=== PATIENT | male | born 1980 | race Caucasian/White ===

== ENCOUNTER 2021-01-29 14:34 | Emergency (ER) | payer SELFPAY ==
[~2021-01-29] VITALS: Ht 172.7 cm; Wt 63.5 kg
--- NOTE | 2021-01-29 14:36 | ED Cough/URI ---
General Stated Complaint: COVID+; CHEST PAIN History of Present Illness Date Seen by Provider: Jan 29, 2021 Time Seen by Provider: 14:36 Initial Comments 40-year-old male presents with chest pain that started about 30 minutes prior to arrival. Patient reports that about 11 days ago he tested positive for Covid. That he is doing well but then today has developed some nausea, vomiting, diarrhea and some upper epigastric pain. That he threw up a couple times and complains of substernal mid chest pain. Patient reports he had a cardiac event which he thinks was a heart attack back in 2018 with sounds like it may have been pericarditis. Patient denies any cough, shortness of breath, radiation of the pain, fever or chills. Allergies and Home Medications Allergies Uncoded Allergies: pcn (Allergy, Unknown, 01/29/21) Patient Home Medication List Home Medication List Reviewed: Yes Review of Systems Review of Systems Constitutional: No chills, No fever; malaise Respiratory: No cough, No short of breath Cardiovascular: chest pain Gastrointestinal: abdominal pain, diarrhea, nausea, vomiting Genitourinary: no symptoms reported Musculoskeletal: no symptoms reported Skin: no symptoms reported Psychiatric/Neurological: No Symptoms Reported Hematologic/Lymphatic: No Symptoms Reported Physical Exam Vital Signs - First Documented 01/29/21 14:38 Temp 36.7 Pulse 58 Resp 19 B/P (MAP) 157/78 (104) Pulse Ox 100 O2 Delivery Room Air Capillary Refill : Height: '" Weight: lbs. oz. kg; BMI Method: General Appearance: mild distress Respiratory: no respiratory distress, no accessory muscle use Cardiovascular: normal peripheral pulses, regular rate, rhythm, no edema Gastrointestinal: soft; No guarding, No rebound; tenderness (Epigastric) Neurologic/Psychiatric: alert, normal mood/affect, oriented x 3 Skin: normal color, warm/dry Progress/Results/Core Measures Suspected Sepsis SIRS Temperature: Pulse: Respiratory Rate: Laboratory Tests 01/29/21 14:49: White Blood Count 16.6H Blood Pressure / Mean: Laboratory Tests 01/29/21 14:49: Creatinine 1.02, Platelet Count 242, Total Bilirubin 1.1H Results/Orders Lab Results Laboratory Tests Test 01/29/21 14:49 Range/Units White Blood Count 16.6 H 4.3-11.0 10^3/uL Red Blood Count 6.05 H 4.30-5.52 10^6/uL Hemoglobin 19.8 H 13.3-17.7 g/dL Hematocrit 57 H 40-54 % Mean Corpuscular Volume 95 80-99 fL Mean Corpuscular Hemoglobin 33 25-34 pg Mean Corpuscular Hemoglobin Concent 35 32-36 g/dL Red Cell Distribution Width 12.6 10.0-14.5 % Platelet Count 242 130-400 10^3/uL Mean Platelet Volume 9.9 9.0-12.2 fL Immature Granulocyte % (Auto) 1 % Neutrophils (%) (Auto) 76 H 42-75 % Lymphocytes (%) (Auto) 17 12-44 % Monocytes (%) (Auto) 6 0-12 % Eosinophils (%) (Auto) 0 0-10 % Basophils (%) (Auto) 0 0-10 % Neutrophils # (Auto) 12.6 H 1.8-7.8 X 10^3 Lymphocytes # (Auto) 2.8 1.0-4.0 X 10^3 Monocytes # (Auto) 1.1 H 0.0-1.0 X 10^3 Eosinophils # (Auto) 0.1 0.0-0.3 10^3/uL Basophils # (Auto) 0.0 0.0-0.1 10^3/uL Immature Granulocyte # (Auto) 0.1 0.0-0.1 10^3/uL Neutrophils % (Manual) 77 % Lymphocytes % (Manual) 14 % Monocytes % (Manual) 9 % Toxic Granulation 2+ Sodium Level 134 L 135-145 MMOL/L Potassium Level 4.0 3.6-5.0 MMOL/L Chloride Level 98 98-107 MMOL/L Carbon Dioxide Level 22 21-32 MMOL/L Anion Gap 14 5-14 MMOL/L Blood Urea Nitrogen 7 7-18 MG/DL Creatinine 1.02 0.60-1.30 MG/DL Estimat Glomerular Filtration Rate 81 BUN/Creatinine Ratio 7 Glucose Level 134 H 70-105 MG/DL Calcium Level 9.8 8.5-10.1 MG/DL Corrected Calcium 9.7 8.5-10.1 MG/DL Total Bilirubin 1.1 H 0.1-1.0 MG/DL Aspartate Amino Transf (AST/SGOT) 22 5-34 U/L Alanine Aminotransferase (ALT/SGPT) 27 0-55 U/L Alkaline Phosphatase 104 40-136 U/L Troponin I < 0.30 <0.30 NG/ML C-Reactive Protein 1.17 H <0.50 MG/DL Total Protein 7.6 6.4-8.2 GM/DL Albumin 4.1 3.2-4.5 GM/DL Lipase 405 H 8-78 U/L My Orders Orders - CARBALLO,ORLANDO L DO Cbc With Automated Diff (01/29/21 14:47) Comprehensive Metabolic Panel (01/29/21 14:47) Lipase (01/29/21 14:47) Ua Culture If Indicated (01/29/21 14:47) Crp Fs (01/29/21 14:47) Troponin I Fs (01/29/21 14:47) Abdomen (Kub) 1 View (01/29/21 14:47) Chest 1 View Ap/Pa Only (01/29/21 14:47) Ed Iv/Invasive Line Start (01/29/21 14:47) Ekg Tracing (01/29/21 14:47) Monitor-Rhythm Ecg Trace Only (01/29/21 14:47) Ondansetron Injection (Zofran Injectio (01/29/21 15:00) Ns Iv 1000 Ml (Sodium Chloride 0.9%) (01/29/21 14:47) Famotidine Injection (Pepcid Injection) (01/29/21 14:47) Ketorolac Injection (Toradol Injection) (01/29/21 14:47) Manual Differential (01/29/21 14:49) Ct Abdomen/Pelvis W Wo (01/29/21 15:34) Iohexol Injection (Omnipaque 350 Mg/Ml 1 (01/29/21 15:45) Received Contrast (Hold Metformin- Contr (01/29/21 15:45) Sodium Chloride Flush (Catheter Flush Sy (01/29/21 15:45) Ns (Ivpb) (Sodium Chloride 0.9% Ivpb Bag (01/29/21 15:45) Medications Given in ED Current Medications Medications Dose Ordered Sig/Rasheed Route Start Time Stop Time Status Last Admin Dose Admin Iohexol 100 ml ONCE ONCE IV 01/29/21 15:45 01/29/21 15:46 DC 01/29/21 16:08 100 ML Ondansetron HCl 4 mg ONCE ONCE IVP 01/29/21 15:00 01/29/21 15:01 DC 01/29/21 15:11 4 MG Sodium Chloride 10 ml NEEDED PRN IV 01/29/21 15:45 01/29/21 16:08 10 ML Sodium Chloride 100 ml ONCE ONCE IV 01/29/21 15:45 01/29/21 15:46 DC 01/29/21 16:08 100 ML Vital Signs/I&O 01/29/21 14:38 Temp 36.7 Pulse 58 Resp 19 B/P (MAP) 157/78 (104) Pulse Ox 100 O2 Delivery Room Air Capillary Refill : ECG Initial ECG Impression Date: Jan 29, 2021 Initial ECG Impression Time: 14:38 Initial ECG Rate: 63 Initial ECG Intervals: Normal Initial ECG Impression: Normal Comment No acute EKG changes, ST elevation or abnormality Diagnostic Imaging Diagonstic Imaging: CT Comments Date of Exam:01/29/21 CT ABDOMEN/PELVIS W WO PROCEDURE: CT abdomen and pelvis with and without contrast. TECHNIQUE: Precontrast acquisitions were acquired through the abdomen and pelvis. Multiple contiguous axial images were obtained through the abdomen and pelvis after the administration of intravenous contrast. Auto Exposure Controls were utilized during the CT exam to meet ALARA standards for radiation dose reduction. INDICATION: Right upper quadrant pain, kidney stone. COMPARISON: None available. FINDINGS: Lower chest: The lung bases are clear. No pericardial or pleural effusion. Peritoneum: No free intraperitoneal air. Liver and biliary system: The liver is normal. The gallbladder is normal. No biliary duct dilation. Spleen and Pancreas: Spleen is normal. There is mild heterogeneous enhancement of the pancreatic head with some surrounding fluid tracking along the 2nd portion of the duodenum that could represent groove pancreatitis. A few tiny calcifications are present along the pancreatic head as well. A larger calcific density is likely within the lumen of the 2nd portion of the duodenum. No peripancreatic fluid collection that would suggest abscess. No features of pancreatic necrosis. Splenic vein is patent. Adrenals: Normal. tract: The kidneys enhance normally without suspicious mass or obstruction. Urinary bladder is decompressed, limiting assessment. No renal or ureteral stones. Prostate is not enlarged. GI tract: Stomach is filled with fluid and air and there is no wall thickening. No bowel obstruction. No pericolonic inflammatory changes. Normal appendix. Vasculature and Lymph nodes: Normal caliber aorta. No abdominal or pelvic lymphadenopathy. Musculoskeletal: No concerning osseous lesion. IMPRESSION: 1. Acute interstitial pancreatitis involving the head of the pancreas. This results in a small amount of nonloculated fluid extending along the duodenum. No loculated peripancreatic collection to suggest abscess or pseudocyst. No pancreatic necrosis. 2. Pancreatic head calcifications are likely due to sequelae of chronic pancreatitis. 3. No urinary tract calculi or obstructive uropathy. Reviewed: Reviewed by Me, Reviewed/Discussed Departure Impression Primary Impression: Pancreatitis, acute Qualified Codes: K85.90 - Acute pancreatitis without necrosis or infection, unspecified Disposition: HOME, SELF-CARE Condition: Stable Departure-Patient Inst. Patient Instructions: CLEAR LIQUID DIET ADULT/CHILD, Pancreatitis (DC) Add. Discharge Instructions: Clear liquid diet for the next 36 to 48 hours then slowly advance diet. Return to the ER as needed Follow-up with your primary care provider Monday or Monday for recheck of your symptoms Scripts Hydrocodone/Acetaminophen (Hydrocodone-Acetamin 5-325 mg) 1 Each Tablet 1 TAB PO Q4H PRN for PAIN-MODERATE (5-7), #20 TAB Prov: ORLANDO CARBALLO DO 01/29/21 Ondansetron (Ondansetron Odt) 4 Mg Tab.rapdis 4 MG PO Q6H PRN for NAUSEA/VOMITING, #30 TAB 0 Refills Prov: ORLANDO CARBALLO DO 01/29/21 ORLANDO CARBALLO DO Jan 29, 2021 14:36
[2021-01-29] MEDS ORDERED: FAMOTIDINE 20MG/2ML IV (PEPCID) IV STA (14:47)
[2021-01-29] MEDS ORDERED: NS IV 1000 ML 1,000 ML IV STA (14:47)
[2021-01-29] MEDS ORDERED: KETOROLAC 30 MG/ML VIAL IVP STA (14:47)
[2021-01-29] MEDS ORDERED: ONDANSETRON 4 MG/2 ML (SDV) Z0FRAN IVP ONE (15:00)
[2021-01-29 15:02] LABS: BASOPHILS % (AUTO) 0 % (0-10); EOSINOPHILS # (AUTO) 0.1 10^3/uL (0.0-0.3); EOSINOPHILS % (AUTO) 0 % (0-10); HEMATOCRIT 57 % (40-54); HEMOGLOBIN 19.8 g/dL (13.3-17.7); LYMPHOCYTES # (AUTO) 2.8 X 10^3 (1.0-4.0); LYMPHOCYTES % (AUTO) 17 % (12-44); MEAN CORPUSCULAR HEMOGLOBIN 33 pg (25-34); MEAN CORPUSCULAR HGB CONC 35 g/dL (32-36); MEAN CORPUSCULAR VOLUME 95 fL (80-99); MEAN PLATELET VOLUME 9.9 fL (9.0-12.2); MONOCYTES # (AUTO) 1.1 X 10^3 (0.0-1.0); MONOCYTES % (AUTO) 6 % (0-12); NEUTROPHILS # (AUTO) 12.6 X 10^3 (1.8-7.8); NEUTROPHILS % (AUTO) 76 % (42-75); PLATELET COUNT 242 10^3/uL (130-400); WHITE BLOOD COUNT 16.6 10^3/uL (4.3-11.0)
--- NOTE | 2021-01-29 15:13 | Diagnostic Imaging Report ---
INDICATION: Nausea and vomiting and diarrhea with upper abdominal pain. TIME OF EXAM: 3:04 PM No prior studies are available for comparison. The heart size is normal. The pulmonary vascularity is unremarkable. The lungs are clear. No infiltrate, effusion or pneumothorax is detected. IMPRESSION: No acute cardiopulmonary process is detected. Dictated by: Dictated on workstation # [id number]
[2021-01-29 15:17] LABS: LYMPHOCYTES % (MANUAL) 14 %; MONOCYTES % (MANUAL) 9 %; NEUTROPHILS % (MANUAL) 77 %
[2021-01-29 15:18] LABS: TOXIC GRANULATION/VACUOLAZATIO 2+
[2021-01-29 15:25] LABS: ALANINE AMINOTRANSFERASE 27 U/L (0-55); ALKALINE PHOSPHATASE 104 U/L (40-136); BILIRUBIN,TOTAL 1.1 MG/DL (0.1-1.0); BUN/CREATININE RATIO 7; CALCIUM 9.8 MG/DL (8.5-10.1); CARBON DIOXIDE 22 MMOL/L (21-32); CHLORIDE 98 MMOL/L (98-107); CREATININE SERUM 1.02 MG/DL (0.60-1.30); GFR ESTIMATED 81; GLUCOSE 134 MG/DL (70-105); SODIUM 134 MMOL/L (135-145)
[2021-01-29 15:26] LABS: ALBUMIN 4.1 GM/DL (3.2-4.5); LIPASE 405 U/L (8-78); TOTAL PROTEIN 7.6 GM/DL (6.4-8.2)
--- NOTE | 2021-01-29 15:32 | Diagnostic Imaging Report ---
INDICATION: Nausea, vomiting and diarrhea. Upper abdominal pain. COMPARISON: None FINDINGS: Single frontal radiographic view of the abdomen was obtained. 7 x 5 mm extraosseous calcification is identified projecting over the expected location of the right renal pelvis. No other unexpected extraosseous calcifications or radiopaque foreign bodies are seen. Small bowel loops are nondistended. There is no large collection for intraperitoneal air. Osseous structures show no acute abnormalities. IMPRESSION: 1. Possible collecting system calculus at the right UPJ. 2. Nonobstructive small bowel gas pattern. Called to Dr. Sourav Miles at 3:30 p.m. by cvb. Dictated by: Dictated on workstation # [id number]
[2021-01-29] MEDS ORDERED: NS 100 ML (IVPB) BAG IV ONE (15:45)
[2021-01-29] MEDS ORDERED: CATHETER FLUSH 10 ML SYR IV PRN (15:45)
[2021-01-29] MEDS ORDERED: IOHEXOL 350 MG/ML 100 ML (OMNIPAQUE 350) VIAL IV ONE (15:45)
[2021-01-29] MEDS ORDERED: HOLD METFORMIN - RECEIVED CONTRAST 20 ML VIAL IV SCH (15:45)
--- NOTE | 2021-01-29 16:15 | Diagnostic Imaging Report ---
PROCEDURE: CT abdomen and pelvis with and without contrast. TECHNIQUE: Precontrast acquisitions were acquired through the abdomen and pelvis. Multiple contiguous axial images were obtained through the abdomen and pelvis after the administration of intravenous contrast. Auto Exposure Controls were utilized during the CT exam to meet ALARA standards for radiation dose reduction. INDICATION: Right upper quadrant pain, kidney stone. COMPARISON: None available. FINDINGS: Lower chest: The lung bases are clear. No pericardial or pleural effusion. Peritoneum: No free intraperitoneal air. Liver and biliary system: The liver is normal. The gallbladder is normal. No biliary duct dilation. Spleen and Pancreas: Spleen is normal. There is mild heterogeneous enhancement of the pancreatic head with some surrounding fluid tracking along the 2nd portion of the duodenum that could represent groove pancreatitis. A few tiny calcifications are present along the pancreatic head as well. A larger calcific density is likely within the lumen of the 2nd portion of the duodenum. No peripancreatic fluid collection that would suggest abscess. No features of pancreatic necrosis. Splenic vein is patent. Adrenals: Normal. tract: The kidneys enhance normally without suspicious mass or obstruction. Urinary bladder is decompressed, limiting assessment. No renal or ureteral stones. Prostate is not enlarged. GI tract: Stomach is filled with fluid and air and there is no wall thickening. No bowel obstruction. No pericolonic inflammatory changes. Normal appendix. Vasculature and Lymph nodes: Normal caliber aorta. No abdominal or pelvic lymphadenopathy. Musculoskeletal: No concerning osseous lesion. IMPRESSION: 1. Acute interstitial pancreatitis involving the head of the pancreas. This results in a small amount of nonloculated fluid extending along the duodenum. No loculated peripancreatic collection to suggest abscess or pseudocyst. No pancreatic necrosis. 2. Pancreatic head calcifications are likely due to sequelae of chronic pancreatitis. 3. No urinary tract calculi or obstructive uropathy. Dictated by: Dictated on workstation # [id number]
[2021-01-29] MEDS ORDERED: ONDA4TAB11 PO (16:35)
[2021-01-29] MEDS ORDERED: ACHD5005 PO (16:35)
[2021-01-29 17:03] VITALS: BP 157/78
== END 2021-01-29 16:56 | disposition home or self-care (01) ==
LOC: EDUNIT# 14:34 → ER FS 14:40
DX: K85.90 Acute pancreatitis without necrosis or infection, unspecified (principal)
CPT/HCPCS: 36415; 71045; 74018; 74178; 80053; 83690; 84484; 85007; 85027; 86141; 93005; 93041

== ENCOUNTER 2021-01-29 20:27 | Emergency (ER) | payer SELFPAY ==
[~2021-01-29] VITALS: Ht 172 cm; Wt 65.0 kg
[~2021-01-29 20:27] MED LIST: ACHD5005 PO; ONDA4TAB11 PO
[2021-01-29] MEDS ORDERED: PANTOPRAZOLE 40 MG (PROTONIX) VIAL IV ONE (21:15)
[2021-01-29] MEDS ORDERED: KETOROLAC 30 MG/ML VIAL IVP ONE (21:15)
[2021-01-29] MEDS ORDERED: NS IV 1000 ML 1,000 ML IV SCH (21:15)
[2021-01-29] MEDS ORDERED: ONDANSETRON 4 MG/2 ML (SDV) Z0FRAN IVP ONE (21:15)
--- NOTE | 2021-01-29 21:19 | ED Abdominal Pain ---
General Chief Complaint: Abdominal/GI Problems Stated Complaint: DX W/ ACUTE PANCREATITIS, PAIN WORSE Nursing Triage Note: PT AMB TO ER WITH C/O ABD PAIN. PT WAS SEEN AT THE ER A FEW HOURS AGO AND D/C'D WITH ACUTE PANCREATITIS. PT SAID PAIN HAS GOTTEN WORSE Source of Information: Patient Exam Limitations: No Limitations (LEONARD BENNETT STUDENT) History of Present Illness Date Seen by Provider: Jan 29, 2021 Time Seen by Provider: 21:00 Initial Comments Ranjit Aguilar is a 40 yo M with a history of alcoholism diagnosed with acute pancreatitis today in [facility] who presents to the ED for uncontrolled abdominal pain and vomiting. Pt states that the pain began this morning around 10 when he began having dull aching epigastric pain radiating to his back with associated nausea, vomiting, and diarrhea. Nothing has helped the pain and it has been gradually worsening throughout the day. Pt was prescribed zofran and hydrocodone from [facility] today, but states he has been unable to tolerate anything PO and thus has not been able to control his pain. Timing/Duration: 12 Hours Severity/Quality: Severe, Aching, Dull Location: Epigastric Radiation: Back Activities at Onset: None Modifying Factors: Improves With Palpation, Improves With Vomiting Associated Symptoms: Back Pain, Nausea/Vomiting (LEONARD BENNETT STUDENT) Allergies and Home Medications Allergies Uncoded Allergies: pcn (Allergy, Unknown, 01/29/21) Patient Home Medication List Home Medication List Reviewed: Yes (ALVERTO NORTH) Hydrocodone/Acetaminophen (Hydrocodone-Acetamin 5-325 mg) 1 Each Tablet, 1 TAB PO Q4H PRN for PAIN-MODERATE (5-7) Prescribed by: ORLANDO CARBALLO on 01/29/21 1635 Ondansetron (Ondansetron Odt) 4 Mg Tab.rapdis, 4 MG PO Q6H PRN for NAUSEA/VOMITING Prescribed by: ORLANDO CARBALLO on 01/29/21 1635 Review of Systems Review of Systems Constitutional: malaise, weakness EENTM: No Blurred Vision, No Double Vision Respiratory: Denies Cough, Denies Shortness of Air Cardiovascular: Denies Chest Pain, Denies Irregular Heart Rate Gastrointestinal: Abdominal Pain, Diarrhea, Nausea, Poor Fluid Intake, Vomiting Genitourinary: Denies Burning, Denies Discharge Musculoskeletal: back pain; No joint pain, No joint swelling Skin: No change in color, No change in hair/nails Psychiatric/Neurological: Denies Headache, Denies Numbness Endocrine: Denies Increased Hunger, Denies Increased Thrist Hematologic/Lymphatic: Denies Easy Bleeding, Denies Easy Bruising (LEONARD BENNETT [employer]) Constitutional: No chills, No fever (ALVERTO NORTH) All Other Systems Reviewed Negative Unless Noted: Yes (ALVERTO NORTH) Past Adxoiis-Cplpqy-Sxzkge Hx Patient Social History Tobacco Use?: Yes Tobacco type used: Cigarettes Smoking Status: Current Everyday Smoker Substance use?: Yes Substance type: Marijuana Substance frequency: Several times a month Alcohol Use?: Yes Alcohol type: Beer Alcohol Frequency: Daily Pt feels they are or have been: No (LEONARD BENNETT [employer]) Tobacco Use?: No Use of E-Cig and/or Vaping dev: No Substance use?: Yes Substance type: Methamphetamine, Marijuana, Other Alcohol Use?: Yes (Cocaine) Alcohol type: Beer (ALVERTO NORTH) Immunizations Up To Date Influenza Vaccine Up-to-Date: No; Not Current First/Initial COVID19 Vaccinat: Not currently (LEONARD BENNETT [employer]) Past Medical History Surgery/Hospitalization HX: myocarditis; DE, autoimmune (DONALDLEONARD PENG [employer]) Physical Exam Vital Signs Vital Signs - First Documented 01/29/21 20:42 Temp 36.4 Pulse 68 Resp 20 B/P (MAP) 186/101 (129) Pulse Ox 100 O2 Delivery Room Air (ALVERTO NORTH) Vital Signs Capillary Refill : Less Than 3 Seconds (3LMLEONARD [employer]) Height/Weight/BMI Height: '" Weight: lbs. oz. kg; 21.00 BMI Method: General Appearance: moderate distress, thin HEENT: PERRL/EOMI, normal ENT inspection Neck: non-tender, full range of motion, supple, normal inspection Respiratory: chest non-tender, lungs clear, normal breath sounds, no respiratory distress, no accessory muscle use Cardiovascular: normal peripheral pulses, regular rate, rhythm, no edema, no gallop, no JVD, no murmur Peripheral Pulses: 1+ Dorsalis Pedis (R), 1+ Left Dors-Pedis (L), 1+ Radial Pulses (R), 1+ Radial Pulses (L) Gastrointestinal: No distended; guarding; No rebound; tenderness Extremities: normal range of motion, non-tender, normal inspection, no pedal edema, no calf tenderness, normal capillary refill Back: normal inspection, no CVA tenderness, no vertebral tenderness Neurologic/Psychiatric: alert, normal mood/affect, oriented x 3 Skin: normal color, warm/dry (LEONARD BENENTT MED STUDENT) Progress/Results/Core Measures Results/Orders Lab Results Laboratory Tests Test 01/29/21 21:24 Range/Units White Blood Count 18.4 H 4.3-11.0 10^3/uL Red Blood Count 5.73 H 4.30-5.52 10^6/uL Hemoglobin 18.8 H 13.3-17.7 g/dL Hematocrit 54 40-54 % Mean Corpuscular Volume 94 80-99 fL Mean Corpuscular Hemoglobin 33 25-34 pg Mean Corpuscular Hemoglobin Concent 35 32-36 g/dL Red Cell Distribution Width 12.9 10.0-14.5 % Platelet Count 284 130-400 10^3/uL Mean Platelet Volume 11.1 9.0-12.2 fL Immature Granulocyte % (Auto) 1 % Neutrophils (%) (Auto) 78 H 42-75 % Lymphocytes (%) (Auto) 14 12-44 % Monocytes (%) (Auto) 7 0-12 % Eosinophils (%) (Auto) 0 0-10 % Basophils (%) (Auto) 0 0-10 % Neutrophils # (Auto) 14.3 H 1.8-7.8 10^3/uL Lymphocytes # (Auto) 2.6 1.0-4.0 10^3/uL Monocytes # (Auto) 1.2 H 0.0-1.0 10^3/uL Eosinophils # (Auto) 0.1 0.0-0.3 10^3/uL Basophils # (Auto) 0.0 0.0-0.1 10^3/uL Immature Granulocyte # (Auto) 0.1 0.0-0.1 10^3/uL Neutrophils % (Manual) 79 % Lymphocytes % (Manual) 12 % Monocytes % (Manual) 6 % Eosinophils % (Manual) 2 % Atypical Lymphocytes 1 % Blood Morphology Comment NORMAL Urine Color YELLOW Urine Clarity CLEAR Urine pH 7.0 5-9 Urine Specific [place] <=1.005 1.016-1.022 Urine Protein 1+ H NEGATIVE Urine Glucose (UA) NEGATIVE NEGATIVE Urine Ketones NEGATIVE NEGATIVE Urine Nitrite NEGATIVE NEGATIVE Urine Bilirubin 1+ H NEGATIVE Urine Urobilinogen 2.0 < = 1.0 MG/DL Urine Leukocyte Esterase NEGATIVE NEGATIVE Urine RBC (Auto) NEGATIVE NEGATIVE Urine RBC NONE /HPF Urine WBC NONE /HPF Urine Squamous Epithelial Cells NONE /HPF Urine Crystals NONE /LPF Urine Bacteria NEGATIVE /HPF Urine Casts NONE /LPF Urine Mucus NEGATIVE /LPF Urine Culture Indicated NO Sodium Level 136 135-145 MMOL/L Potassium Level 4.0 3.6-5.0 MMOL/L Chloride Level 103 98-107 MMOL/L Carbon Dioxide Level 21 21-32 MMOL/L Anion Gap 12 5-14 MMOL/L Blood Urea Nitrogen 7 7-18 MG/DL Creatinine 1.08 0.60-1.30 MG/DL Estimat Glomerular Filtration Rate 76 BUN/Creatinine Ratio 6 Glucose Level 119 H 70-105 MG/DL Calcium Level 8.6 8.5-10.1 MG/DL Corrected Calcium 9.1 8.5-10.1 MG/DL Total Bilirubin 1.0 0.1-1.0 MG/DL Aspartate Amino Transf (AST/SGOT) 15 5-34 U/L Alanine Aminotransferase (ALT/SGPT) 28 0-55 U/L Alkaline Phosphatase 68 40-136 U/L Total Creatine Kinase 34 30-200 U/L Troponin I < 0.028 <0.028 NG/ML Total Protein 6.1 L 6.4-8.2 GM/DL Albumin 3.4 3.2-4.5 GM/DL Lipase 588 H 8-78 U/L Urine Opiates Screen NEGATIVE NEGATIVE Urine Oxycodone Screen NEGATIVE NEGATIVE Urine Methadone Screen NEGATIVE NEGATIVE Urine Propoxyphene Screen NEGATIVE NEGATIVE Urine Barbiturates Screen NEGATIVE NEGATIVE Ur Tricyclic Antidepressants Screen NEGATIVE NEGATIVE Urine Phencyclidine Screen NEGATIVE NEGATIVE Urine Amphetamines Screen NEGATIVE NEGATIVE Urine Methamphetamines Screen POSITIVE H NEGATIVE Urine Benzodiazepines Screen NEGATIVE NEGATIVE Urine Cocaine Screen POSITIVE H NEGATIVE Urine Cannabinoids Screen POSITIVE H NEGATIVE Serum Alcohol < 10 <10 MG/DL (ALVERTO NORTH) My Orders Orders - ALVERTO NORTH Cbc With Automated Diff (01/29/21 21:11) Alcohol (01/29/21 21:11) Comprehensive Metabolic Panel (01/29/21 21:11) Lipase (01/29/21 21:11) Ua Culture If Indicated (01/29/21 21:11) Drug Screen Stat (Urine) (01/29/21 21:11) Creatine Kinase (01/29/21 21:11) Ed Iv/Invasive Line Start (01/29/21 21:11) Ns Iv 1000 Ml (Sodium Chloride 0.9%) (01/29/21 21:15) Ondansetron Injection (Zofran Injectio (01/29/21 21:15) Ketorolac Injection (Toradol Injection) (01/29/21 21:15) Pantoprazole Injection (Protonix Injecti (01/29/21 21:15) Manual Differential (01/29/21 21:24) Ekg Tracing (01/29/21 22:00) Continuous Ekg Monitoring (01/29/21 22:00) Troponin I Salas (01/29/21 21:24) (ALVERTO NORTH) Medications Given in ED Current Medications Medications Dose Ordered Sig/Rasheed Route Start Time Stop Time Status Last Admin Dose Admin Ketorolac Tromethamine 30 mg ONCE ONCE IVP 01/29/21 21:15 01/29/21 21:16 DC 01/29/21 21:24 30 MG Ondansetron HCl 8 mg ONCE ONCE IVP 01/29/21 21:15 01/29/21 21:16 DC 01/29/21 21:24 8 MG Pantoprazole 40 mg ONCE ONCE IV 01/29/21 21:15 01/29/21 21:16 DC 01/29/21 21:24 40 MG (ALVERTO NORTH) Vital Signs/I&O 01/29/21 20:42 Temp 36.4 Pulse 68 Resp 20 B/P (MAP) 186/101 (129) Pulse Ox 100 O2 Delivery Room Air (ALVERTO NORTH) Blood Pressure Mean: 129 Progress Progress Note : Time: 22:47 Progress Note I attest that I saw this patient alongside the medical student and agree with his documented history, physical exam and review of systems except as otherwise noted. Patient is significantly improved after Toradol, pantoprazole, Zofran and fluids. His vitals are better. Some of his hypertension is probably explained by his urine drug screen. We discussed removing offending agents and at this time he is okay with attempting outpatient management. Repeat EKG and troponin were unremarkable (ALVERTO NORTH) Initial ECG Impression Date: Jan 29, 2021 Initial ECG Impression Time: 22:34 Initial ECG Rate: 53 Initial ECG Rhythm: Normal Sinus Initial ECG Intervals: Normal Initial ECG Impression: Normal, Nonspecific Changes Initial ECG Comparisson: Unchanged Comment Normal sinus rhythm without clinically relevant ST elevation or depression (ALVERTO NORTH) Departure Impression Primary Impression: Pancreatitis, acute Qualified Codes: K85.20 - Alcohol induced acute pancreatitis without necrosis or infection Disposition: HOME, SELF-CARE Condition: Stable Departure-Patient Inst. Decision time for Depature: 22:48 (ALVERTO NORTH) Referrals: NO,LOCAL PHYSICIAN (PCP) Primary Care Physician PADMINI CORONADO APRN (Family) Primary Care Physician HERLINDA OLEA DO Patient Instructions: Pancreatitis (DC) Add. Discharge Instructions: Drink lots of fluids. Stick to a liquid diet until your symptoms begin to improve. Zofran as directed for nausea. Hydrocodone as directed for pain. You may also use ibuprofen 800 mg every 8 hours. Tums, Rolaids, Maalox/Mylanta as necessary for pain. Omeprazole 80 mg once a day until your symptoms improve. Refrain from any alcohol or recreational drug use as this may worsen your symptoms or cause recurrence in the future. If you continue to have prolonged symptoms or repeat symptoms of pancreatitis then I suggest you follow-up with your primary care doctor or you may follow-up with a general surgeon, Dr. Olea and request outpatient management and work- up. Return to the ER if you are having intractable vomiting or intractable pain despite the medication as discussed above. All discharge instructions reviewed with patient and/or family. Voiced understa nding. Copy Copies To 1: HERLINDA OLEA DO LEONARD BENNETT MED STUDENT Jan 29, 2021 21:19 ALVERTO NORTH Jan 29, 2021 22:50
[2021-01-29 21:31] LABS: BASOPHILS % (AUTO) 0 % (0-10); EOSINOPHILS # (AUTO) 0.1 10^3/uL (0.0-0.3); EOSINOPHILS % (AUTO) 0 % (0-10); HEMATOCRIT 54 % (40-54); HEMOGLOBIN 18.8 g/dL (13.3-17.7); LYMPHOCYTES # (AUTO) 2.6 10^3/uL (1.0-4.0); LYMPHOCYTES % (AUTO) 14 % (12-44); MEAN CORPUSCULAR HEMOGLOBIN 33 pg (25-34); MEAN CORPUSCULAR HGB CONC 35 g/dL (32-36); MEAN CORPUSCULAR VOLUME 94 fL (80-99); MEAN PLATELET VOLUME 11.1 fL (9.0-12.2); MONOCYTES # (AUTO) 1.2 10^3/uL (0.0-1.0); MONOCYTES % (AUTO) 7 % (0-12); NEUTROPHILS # (AUTO) 14.3 10^3/uL (1.8-7.8); NEUTROPHILS % (AUTO) 78 % (42-75); PLATELET COUNT 284 10^3/uL (130-400); WHITE BLOOD COUNT 18.4 10^3/uL (4.3-11.0)
[2021-01-29 21:32] LABS: CLARITY,URINE CLEAR; COLOR,URINE YELLOW; GLUCOSE, URINE (UA) NEGATIVE (NEGATIVE); KETONES,URINE NEGATIVE (NEGATIVE); LEUKOCYTE ESTERASE ,URINE NEGATIVE (NEGATIVE); NITRITE,URINE NEGATIVE (NEGATIVE); PROTEIN,URINE 1+ (NEGATIVE)
[2021-01-29 21:36] LABS: BILIRUBIN,URINE 1+ (NEGATIVE)
[2021-01-29 21:38] LABS: BACTERIA,URINE NEGATIVE /HPF
[2021-01-29 21:44] LABS: AMPHETAMINE SCREEN, URINE NEGATIVE (NEGATIVE); BARBITURATE SCREEN URINE NEGATIVE (NEGATIVE); BENZODIAZEPINES SCREEN URINE NEGATIVE (NEGATIVE); CANNABINOID SCREEN, URINE POSITIVE (NEGATIVE); COCAINE SCREEN URINE POSITIVE (NEGATIVE); METHADONE STAT NEGATIVE (NEGATIVE); METHAMPHETAMINE SCREEN URINE S POSITIVE (NEGATIVE); OPIATE SCREEN URINE NEGATIVE (NEGATIVE); OXYCODONE STAT NEGATIVE (NEGATIVE); PROPOXYPHENE STAT NEGATIVE (NEGATIVE); TRICYCLIC ANTIDEPRESSANTS SCRE NEGATIVE (NEGATIVE)
[2021-01-29 22:04] LABS: ALBUMIN 3.4 GM/DL (3.2-4.5); CHLORIDE 103 MMOL/L (98-107)
[2021-01-29 22:05] LABS: SODIUM 136 MMOL/L (135-145)
[2021-01-29 22:06] LABS: CALCIUM 8.6 MG/DL (8.5-10.1)
[2021-01-29 22:07] LABS: GLUCOSE 119 MG/DL (70-105); TOTAL PROTEIN 6.1 GM/DL (6.4-8.2)
[2021-01-29 22:08] LABS: CARBON DIOXIDE 21 MMOL/L (21-32)
[2021-01-29 22:10] LABS: ALKALINE PHOSPHATASE 68 U/L (40-136)
[2021-01-29 22:11] LABS: ATYPICAL LYMPHOCYTES 1 %; CREATININE SERUM 1.08 MG/DL (0.60-1.30); EOSINOPHILS % (MANUAL) 2 %; GFR ESTIMATED 76; LYMPHOCYTES % (MANUAL) 12 %; MONOCYTES % (MANUAL) 6 %; NEUTROPHILS % (MANUAL) 79 %; RBC MORPH NORMAL
[2021-01-29 22:12] LABS: BUN/CREATININE RATIO 6
[2021-01-29 22:13] LABS: ALANINE AMINOTRANSFERASE 28 U/L (0-55)
[2021-01-29 22:14] LABS: CREATINE KINASE 34 U/L (30-200); LIPASE 588 U/L (8-78)
[2021-01-29 23:00] VITALS: BP 144/77
== END 2021-01-29 23:00 | disposition home or self-care (01) ==
LOC: EDUNIT# 20:27 → ER 20:28
DX: K85.20 Alcohol induced acute pancreatitis without necrosis or infection (principal); F17.210 Nicotine dependence, cigarettes, uncomplicated
CPT/HCPCS: 80053; 80306; 81000; 82550; 83690; 84484; 85007; 85027; 99284; G0480; 36415; 80320; 93005

== ENCOUNTER → 2021-04-23 | Outpatient (CLI) | payer SELFPAY ==
[~2021-04-23] MED LIST changes: +CATHETER FLUSH 10 ML SYR IV PRN; +HOLD METFORMIN - RECEIVED CONTRAST 20 ML VIAL IV SCH; +IOHEXOL 350 MG/ML 100 ML (OMNIPAQUE 350) VIAL IV ONE; +NS 100 ML (IVPB) BAG IV ONE
--- NOTE | 2021-04-23 09:41 | Diagnostic Imaging Report ---
EXAMINATION: CT abdomen and pelvis with intravenous contrast. TECHNIQUE: Multiple contiguous axial images were obtained through the abdomen and pelvis after the uneventful administration of intravenous contrast. All CT scans use one or more of the following dose optimizing techniques: automated exposure control, MA and/or KvP adjustment based on patient size and exam type or iterative reconstruction. HISTORY: Generalized abdominal pain. History of pancreatitis. COMPARISON: 01/29/2021. FINDINGS: The heart is unremarkable. The included lung bases are clear. Persistent peripancreatic inflammatory changes are seen adjacent to the head of the pancreas. There has been interval development of a new cystic focus within the uncinate process measuring 1.6 x 1.4 cm. No enhancing pancreatic lesions are seen. No evidence of pancreatic ductal dilation. The common bile duct does not appear dilated. The gallbladder is unremarkable. The liver, spleen, adrenal glands, and kidneys have a normal appearance. There is no pathologically enlarged mesenteric or retroperitoneal adenopathy. The bowel loops are nondilated. The appendix is visualized in the right lower quadrant and has a normal appearance. There is no free fluid or free air. No acute osseous abnormalities. The urinary bladder is mildly distended with mild bladder wall thickening. There is no free air, loculated collection, or adenopathy in the pelvis. IMPRESSION: 1. Findings suggestive of continued edematous interstitial pancreatitis involving the head and uncinate process of the pancreas. Since the prior exam, there has been development of a cystic focus within the uncinate process of the pancreas which is favored to represent a dilated branch radical or pseudocyst. 2. No intra or extrahepatic biliary dilation. No evidence of dilated pancreatic duct. No findings to suggest cholelithiasis or choledocholithiasis. 3. Mildly distended urinary bladder with mild bladder wall thickening. Findings may be seen with cystitis and correlation with UA is recommended. Dictated by: Dictated on workstation # [id number]
== END ==
LOC: RAD FS 08:51
PROVIDERS: ATTEND Nurse Practitioner Family
DX: N32.89 Other specified disorders of bladder (principal); R10.9 Unspecified abdominal pain; R39.11 Hesitancy of micturition; Z87.19 Personal history of other diseases of the digestive system
CPT/HCPCS: 74177; Q9967

== ENCOUNTER 2021-07-06 09:01 | Emergency (ER) | payer SELFPAY ==
[~2021-07-06 09:01] MED LIST changes: -CATHETER FLUSH 10 ML SYR IV PRN; -HOLD METFORMIN - RECEIVED CONTRAST 20 ML VIAL IV SCH; -IOHEXOL 350 MG/ML 100 ML (OMNIPAQUE 350) VIAL IV ONE; -NS 100 ML (IVPB) BAG IV ONE
[2021-07-06] MEDS ORDERED: PANTOPRAZOLE 40 MG (PROTONIX) VIAL IV STA (09:15)
[2021-07-06] MEDS ORDERED: fentaNYL INJ 100 MCG/2 ML AMP IVP STA ×2 (09:15→10:55)
[2021-07-06] MEDS ORDERED: ONDANSETRON 4 MG/2 ML (SDV) Z0FRAN IVP STA (09:15)
[2021-07-06 09:25] LABS: BASOPHILS # (AUTO) 0.1 10^3/uL (0.0-0.1); BASOPHILS % (AUTO) 1 % (0-10); EOSINOPHILS # (AUTO) 0.3 10^3/uL (0.0-0.3); EOSINOPHILS % (AUTO) 2 % (0-10); HEMATOCRIT 61 % (40-54); HEMOGLOBIN 21.3 g/dL (13.3-17.7); LYMPHOCYTES # (AUTO) 3.5 10^3/uL (1.0-4.0); LYMPHOCYTES % (AUTO) 18 % (12-44); MEAN CORPUSCULAR HEMOGLOBIN 33 pg (25-34); MEAN CORPUSCULAR HGB CONC 35 g/dL (32-36); MEAN CORPUSCULAR VOLUME 93 fL (80-99); MEAN PLATELET VOLUME 9.1 fL (9.0-12.2); MONOCYTES # (AUTO) 1.3 10^3/uL (0.0-1.0); MONOCYTES % (AUTO) 6 % (0-12); NEUTROPHILS # (AUTO) 14.4 10^3/uL (1.8-7.8); NEUTROPHILS % (AUTO) 73 % (42-75); PLATELET COUNT 303 10^3/uL (130-400); WHITE BLOOD COUNT 19.7 10^3/uL (4.3-11.0)
--- NOTE | 2021-07-06 09:30 | Diagnostic Imaging Report ---
INDICATION: chest pain. TECHNIQUE: Single view chest 9:14 AM. CORRELATION STUDY: 01/29/2021 FINDINGS: The heart size, mediastinal configuration and pulmonary vascularity are within normal limits. The lungs are clear with no consolidating infiltrate. There is no significant effusion or pneumothorax. IMPRESSION: 1. Negative appearing single view chest. Dictated by: Dictated on workstation # [id number]
[2021-07-06 09:44] LABS: CHLORIDE 97 MMOL/L (98-107); POTASSIUM 4.1 MMOL/L (3.6-5.0); SODIUM 138 MMOL/L (135-145)
[2021-07-06 09:45] LABS: ALANINE AMINOTRANSFERASE 10 U/L (0-55); ALBUMIN 4.6 GM/DL (3.2-4.5); ALKALINE PHOSPHATASE 133 U/L (40-136); BUN/CREATININE RATIO 7; CALCIUM 10.7 MG/DL (8.5-10.1); CARBON DIOXIDE 26 MMOL/L (21-32); CREATININE SERUM 1.07 MG/DL (0.60-1.30); GFR ESTIMATED 91; GLUCOSE 114 MG/DL (70-105); LIPASE 258 U/L (8-78); MAGNESIUM 1.7 MG/DL (1.6-2.4); TOTAL PROTEIN 8.3 GM/DL (6.4-8.2)
[2021-07-06 09:47] LABS: PROTHROMBIN TIME PATIENT 13.3 SEC (12.2-14.7)
[2021-07-06 09:52] LABS: ATYPICAL LYMPHOCYTES 2 %; BASOPHILS % (MANUAL) 0 %; EOSINOPHILS % (MANUAL) 0 %; LYMPHOCYTES % (MANUAL) 14 %; MONOCYTES % (MANUAL) 6 %; NEUTROPHILS % (MANUAL) 78 %; PLATELET ESTIMATE NORMAL; RBC MORPH NORMAL
--- NOTE | 2021-07-06 10:11 | ED General ---
General Chief Complaint: Abdominal/GI Problems Stated Complaint: ABD/BACK/CHEST PAIN Source of Information: Patient, Old Records History of Present Illness Date Seen by Provider: July 06, 2021 Time Seen by Provider: 09:03 Initial Comments 40-year-old male presenting with complaints of epigastric and right upper quadrant abdominal pain going into his back. He also was having some pain going up into the right side in the middle of his chest. He has a history of pancreatitis that he felt that has been flared up since at least Monday. He also has a history of pericarditis and was concerned when the pain started going into his chest that maybe he was having a recurrence of that as well. He had tried taking tramadol and ibuprofen at home for his pain but was having nausea and vomiting as well. He felt the pain was not improving and came in to be seen today. He denies any fever, chills, diarrhea, black tarry stools, pain with urination, cough, shortness of breath, headache. He has a known pseudocyst on the pancreas and was seen in April 2021 for this. Timing/Duration: 2-3 Days Severity: Moderate Modifying Factors: worse with Eating Associated Systoms: Chest Pain (Right-sided chest pain and epigastric pain); No Cough, No Diaphoresis, No Fever/Chills, No Headaches, No Loss of Appetite; Malaise, Nausea/Vomiting; No Rash, No Seizure, No Shortness of Air, No Syncope, No Weakness Allergies and Home Medications Allergies Uncoded Allergies: pcn (Allergy, Unknown, 01/29/21) Patient Home Medication List Home Medication List Reviewed: Yes Hydrocodone/Acetaminophen (Hydrocodone-Acetamin 5-325 mg) 1 Each Tablet, 1 TAB PO Q4H PRN for PAIN-MODERATE (5-7) Prescribed by: ORLANDO CARBALLO on 01/29/21 1635 Ondansetron (Ondansetron Odt) 4 Mg Tab.rapdis, 4 MG PO Q6H PRN for NAUSEA/VOMIT ING Prescribed by: ORLANDO CARBALLO on 01/29/21 1635 Review of Systems Review of Systems Constitutional: No chills, No dizziness, No fever EENTM: no symptoms reported Respiratory: no symptoms reported Cardiovascular: see HPI Gastrointestinal: see HPI Genitourinary: no symptoms reported Musculoskeletal: back pain (Epigastric pain radiating to his back) Skin: no symptoms reported Psychiatric/Neurological: No Symptoms Reported Hematologic/Lymphatic: Denies Blood Clots, Denies Easy Bleeding, Denies Easy Bruising Past Rhkiysz-Qkdnuz-Qvqzag Hx Immunizations Up To Date First/Initial COVID19 Vaccinat: Not currently Past Medical History Surgery/Hospitalization HX: myocarditis; [place], autoimmune, pancreatitis, pancreatic pseudocyst Physical Exam Vital Signs Vital Signs - First Documented 07/06/21 09:01 Temp 36.3 Pulse 63 Resp 18 B/P (MAP) 174/90 (118) Pulse Ox 100 O2 Delivery Room Air Capillary Refill : Height, Weight, BMI Height: '" Weight: lbs. oz. kg; 21.00 BMI Method: General Appearance: WD/WN, Mild Distress HEENT: PERRL/EOMI, Pharynx Normal Neck: Full Range of Motion, Normal Inspection, Non Tender, Supple Respiratory: Chest Non Tender, Lungs Clear, Normal Breath Sounds, No Accessory Muscle Use, No Respiratory Distress Cardiovascular: Regular Rate, Rhythm, Normal Peripheral Pulses Gastrointestinal: Normal Bowel Sounds, No Pulsatile Mass, Soft; No Distended, No Guarding, No Rebound; Tenderness (epigastric and RUQ) Rectal: Deferred Back: No CVA Tenderness Extremity: Normal Capillary Refill, Normal Inspection, Non Tender, No Calf Tenderness, No Pedal Edema Neurologic/Psychiatric: Alert, Oriented x3, 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 Skin: Normal Color, Warm/Dry Focused Exam Lactate Level 07/06/21 10:20: Lactic Acid Level 0.87 Lactic Acid Level Laboratory Tests Test 07/06/21 10:20 Lactic Acid Level 0.87 MMOL/L (0.50-2.00) Progress/Results/Core Measures Suspected Sepsis SIRS Temperature: Pulse: Respiratory Rate: Laboratory Tests 07/06/21 09:12: White Blood Count 19.7H Blood Pressure / Mean: 07/06/21 10:20: Lactic Acid Level 0.87 Laboratory Tests 07/06/21 09:12: Creatinine 1.07, INR Comment 1.0, Platelet Count 303, Total Bilirubin 1.0 Results/Orders Lab Results Laboratory Tests Test 07/06/21 09:12 07/06/21 10:20 Range/Units White Blood Count 19.7 H 4.3-11.0 10^3/uL Red Blood Count 6.56 H 4.30-5.52 10^6/uL Hemoglobin 21.3 H 13.3-17.7 g/dL Hematocrit 61 H 40-54 % Mean Corpuscular Volume 93 80-99 fL Mean Corpuscular Hemoglobin 33 25-34 pg Mean Corpuscular Hemoglobin Concent 35 32-36 g/dL Red Cell Distribution Width 15.1 H 10.0-14.5 % Platelet Count 303 130-400 10^3/uL Mean Platelet Volume 9.1 9.0-12.2 fL Immature Granulocyte % (Auto) 0 % Neutrophils (%) (Auto) 73 42-75 % Lymphocytes (%) (Auto) 18 12-44 % Monocytes (%) (Auto) 6 0-12 % Eosinophils (%) (Auto) 2 0-10 % Basophils (%) (Auto) 1 0-10 % Neutrophils # (Auto) 14.4 H 1.8-7.8 10^3/uL Lymphocytes # (Auto) 3.5 1.0-4.0 10^3/uL Monocytes # (Auto) 1.3 H 0.0-1.0 10^3/uL Eosinophils # (Auto) 0.3 0.0-0.3 10^3/uL Basophils # (Auto) 0.1 0.0-0.1 10^3/uL Immature Granulocyte # (Auto) 0.1 0.0-0.1 10^3/uL Neutrophils % (Manual) 78 % Lymphocytes % (Manual) 14 % Monocytes % (Manual) 6 % Eosinophils % (Manual) 0 % Basophils % (Manual) 0 % Atypical Lymphocytes 2 % Platelet Estimate NORMAL Blood Morphology Comment NORMAL Prothrombin Time 13.3 12.2-14.7 SEC INR Comment 1.0 0.8-1.4 Activated Partial Thromboplast Time 32 24-35 SEC Sodium Level 138 135-145 MMOL/L Potassium Level 4.1 3.6-5.0 MMOL/L Chloride Level 97 L 98-107 MMOL/L Carbon Dioxide Level 26 21-32 MMOL/L Anion Gap 15 H 5-14 MMOL/L Blood Urea Nitrogen 7 7-18 MG/DL Creatinine 1.07 0.60-1.30 MG/DL Estimat Glomerular Filtration Rate 91 BUN/Creatinine Ratio 7 Glucose Level 114 H 70-105 MG/DL Calcium Level 10.7 H 8.5-10.1 MG/DL Corrected Calcium 8.5-10.1 MG/DL Magnesium Level 1.7 1.6-2.4 MG/DL Total Bilirubin 1.0 0.1-1.0 MG/DL Aspartate Amino Transf (AST/SGOT) 15 5-34 U/L Alanine Aminotransferase (ALT/SGPT) 10 0-55 U/L Alkaline Phosphatase 133 40-136 U/L Myoglobin 41.3 10.0-92.0 NG/ML Troponin I < 0.30 <0.30 NG/ML Pro-B-Type Natriuretic Peptide 463.7 H <75.0 PG/ML Total Protein 8.3 H 6.4-8.2 GM/DL Albumin 4.6 H 3.2-4.5 GM/DL Lipase 258 H 8-78 U/L Serum Alcohol < 10 <10 MG/DL Lactic Acid Level 0.87 0.50-2.00 MMOL/L My Orders Orders - TESSA DE OLIVEIRA MD Cbc With Automated Diff (07/06/21 09:04) Magnesium (07/06/21 09:04) Chest 1 View Ap/Pa Only (07/06/21 09:04) Ekg Tracing (07/06/21 09:04) Comprehensive Metabolic Panel (07/06/21 09:04) Myoglobin Serum (07/06/21 09:04) Protime With Inr (07/06/21 09:04) Partial Thromboplastin Time (07/06/21 09:04) O2 (07/06/21 09:04) Monitor-Rhythm Ecg Trace Only (07/06/21 09:04) Ed Iv/Invasive Line Start (07/06/21 09:04) Lipase (07/06/21 09:04) Troponin I Fs (07/06/21 09:04) Probnp Fs (07/06/21 09:04) Alcohol (07/06/21 09:04) Fentanyl Inj (Sublimaze Injection) (07/06/21 09:15) Ondansetron Injection (Zofran Injectio (07/06/21 09:15) Pantoprazole Injection (Protonix Injecti (07/06/21 09:15) Manual Differential (07/06/21 09:12) Ct Abdomen/Pelvis W (07/06/21 10:07) Blood Culture (07/06/21 10:07) Lactic Acid Analyzer (07/06/21 10:07) Iohexol Injection (Omnipaque 350 Mg/Ml 1 (07/06/21 10:15) Received Contrast (Hold Metformin- Contr (07/06/21 10:15) Sodium Chloride Flush (Catheter Flush Sy (07/06/21 10:15) Ns (Ivpb) (Sodium Chloride 0.9% Ivpb Bag (07/06/21 10:15) Fentanyl Inj (Sublimaze Injection) (07/06/21 10:55) Ns Iv 1000 Ml (Sodium Chloride 0.9%) (07/06/21 10:55) Enoxaparin Injection (Lovenox Injection) (07/06/21 11:55) Hydromorphone Injection (Dilaudid Inject (07/06/21 12:28) Ns Iv 1000 Ml (Sodium Chloride 0.9%) (07/06/21 12:28) Hydromorphone Injection (Dilaudid Inject (07/06/21 14:26) Hydromorphone Injection (Dilaudid Inject (07/06/21 16:48) Medications Given in ED Current Medications Medications Dose Ordered Sig/Rasheed Route Start Time Stop Time Status Last Admin Dose Admin Iohexol 100 ml ONCE ONCE IV 07/06/21 10:15 07/06/21 10:26 DC 07/06/21 10:29 100 ML Sodium Chloride 10 ml NEEDED PRN IV 07/06/21 10:15 07/06/21 10:29 10 ML Sodium Chloride 100 ml ONCE ONCE IV 07/06/21 10:15 07/06/21 10:26 DC 07/06/21 10:28 100 ML Vital Signs/I&O 07/06/21 09:01 Temp 36.3 Pulse 63 Resp 18 B/P (MAP) 174/90 (118) Pulse Ox 100 O2 Delivery Room Air Capillary Refill : Progress Note #1: Progress Note Obtain electrocardiogram as well as labs and blood work. Evaluate for possible cardiac source for his pain as well as work-up as possible recurrent pancreatitis. Try fentanyl for the pain, IV fluids for hydration, Zofran for nausea. Progress Note #2: Progress Note Labs shows elevated white blood cell count of 19.7 thousand with a left shift. We will add on blood cultures and a lactic acid. CT scan of the abdomen and pelvis with IV contrast to evaluate for possible abscess with his pancreatitis. His chemistry panel does show elevated lipase of 258. Our cutoff of upper limit of normal is 78. So this is over 3 times the upper limit of normal. He has normal LFTs. His coags are normal. He has no alcohol in his system. His pain was not improved with the initial fentanyl dose so a repeat dose was ordered. Additional IV fluids were also ordered as he appeared to be hemoconcentrated with the elevated white blood cell count and elevated hemoglobin. Progress Note #3: Progress Note CT scan shows increased size of pseudocyst on his pancreas. There is also some small amount of surrounding fluid. He has a nonocclusive thrombus in the superior mesenteric vein. 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 On review of Up to Date Medical reference he should be started on anticoagulation so given Lovenox 1 mg/kg and will try to get him admitted to hospital that has GI services. He requests we try [facility]'s first as he had been there in January for pericarditis. 1213 call placed to [facility] transfer center and given information about the patient. Discussed with Dr. Brayan Acevedo for possible transfer. He stated that he would have to check about bed status as he was on sure if they had a bed available for the patient. They will call back once they have a chance to check with the [facility] and [facility] facilities. [phone] . [facility] called back stating that they did not have any beds available for the patient. I spoke with the patient again to see if he had a preference on other facilities. He was agreeable to [facility]. If they did not have a bed then that he was okay with starting with [facility] to check for other facilities and can check with [facility] to see if they have GI as well. 1256 call to [facility] transfer center and spoke with INOCENCIO Lai. Given information about the patient and she will check with the admitting doctor and see if they have a bed available for the patient. She did mention that they have been very tight on beds as well, Similar to [facility]. 1316Call placed to [facility] Access Center to check about possible transfer. INOCENCIO Torres, stated that [facility] and [facility] were on diversion. [facility] was open for transfers. Will get in touch with hospitalist to check about admit. 1341 Divina Hanna APRN, with hospitalist at [facility] called back and after reviewing things about the patient she spoke with her attending and they accepted the patient. I called [facility] back and they informed me that the attending was calling them back right then but they did have a bed available for the patient at . [address]8 Dr. Divina Brown accepted patient for transfer to and pt preferred so [facility] notified that they would not need to find a bed for the patient. Pt was given Dilaudid to see if that would do better for his pain than the Fentanyl. Continue with IVF NS at 100 ml/ hr. ECG Initial ECG Impression Date: July 06, 2021 Initial ECG Impression Time: 09:07 Initial ECG Rate: 65 Initial ECG Rhythm: Normal Sinus Initial ECG Comparisson: Unchanged Comment Normal sinus rhythm with a heart rate of 65 bpm. CA interval [address] elevation. QT interval 386 ms with a QTc interval 397 ms. Overall appears similar to prior tracings in the system. Diagnostic Imaging Diagonstic Imaging: CT Plain Films/CT/US/NM/MRI: abdomen, pelvis Comments [facility]. [place], [place] NAME: LISETH LOOMIS [facility] REC#: [id number] PT STATUS: REG ER : 1980 PHYSICIAN: TESSA DE OLIVEIRA MD ADMIT DATE: 07/06/21/ER FS Draft Date of Exam:07/06/21 CT ABDOMEN/PELVIS W PROCEDURE: CT abdomen and pelvis with contrast. TECHNIQUE: Multiple contiguous axial images were obtained through the abdomen and pelvis after administration of intravenous contrast. Auto Exposure Controls were utilized during the CT exam to meet ALARA standards for radiation dose reduction. All CT scans use one or more of the following dose optimizing techniques: automated exposure control, MA and/or KvP adjustment based on patient size and exam type or iterative reconstruction. INDICATION: Elevated lipase, elevated white blood cell count and epigastric pain. Compared with abdominal pelvic CT 04/23/2021. FINDINGS: Edematous enlargement of the pancreatic head and uncinate process have increased from the prior consistent with a focal pancreatitis. The body and tail grossly unremarkable. The pancreatic duct nondilated however there is an enlarging intraparenchymal fluid collection within the anterior head measuring 2.8 x 2.1 cm today, previously 1.6 x 1.4 cm presumed pseudocyst. Seen best on axial image 66 is an intraluminal incomplete filling defect within the upper superior mesenteric vein likely incompletely occlusive thrombus within that vessel. Luminal opacification peripheral to that filling defect is present. Splenic vein and the main intra and extrahepatic portal veins are patent and showed normal opacification. There are however new rounded as well as tubular configured right and left lobe nonenhancing hypodensities within the liver and peripheral to these are vague regional parenchymal hypodensities wedged configured extending to the capsular surface. This is suspicious for small amounts of intraparenchymal lobe portal venous thrombus. Left and right main portal veins are patent. Hepatic cava and the hepatic veins appeared patent. There is no findings of arterial injury. There were no findings of arterial or venous gut ischemia. There is a trace free fluid along the right colic gutter. No significant pelvic ascites. No extraparenchymal acute fluid collection. Spleen in its vein unremarkable. Kidney showed renal cyst unobstructed nonacute. The adrenals negative. The aortoiliac vessels are atherosclerotic but patent and nonaneurysmal. There is a normal appendix. There is no diverticulitis. There is mild thickening of the urinary bladder wall is unchanged from prior. This may be chronic or reflect mild cystitis. Pelvic vasculature patent. No bowel obstruction. No gastric outlet obstruction. No significant ileus. IMPRESSION: Worsened or recurrent features of pancreatitis, isolated to its head and uncinate process with an enlarging intraparenchymal pseudocyst and new small volume free fluid. Incompletely occlusive thrombus within the upper superior mesenteric vein and likely small amounts of peripheral intraparenchymal right greater than left lobe. Hepatic portal venous thrombi. No biliary calculus. No ileus, obstruction or gastric outlet obstruction. Report was called to [facility] ER Dr. De Oliveira by maggie at 11:22am. Dictated on workstation # [id number] Dict: 07/06/21 1035 Trans: 07/06/21 1122 MAGGIE [id number] Interpreted by: KANDACE MANCIA Electronically signed by: Reviewed: Reviewed by Mi Diagonstic Imaging: Xray Plain Films/CT/US/NM/MRI: chest Comments [facility] [place], [place] NAME: LISETH LOOMIS [facility] REC#: [id number] PT STATUS: REG ER : 1980 PHYSICIAN: TESSA DE OLIVEIRA MD ADMIT DATE: 07/06/21/ER FS Signed Date of Exam:07/06/21 CHEST 1 VIEW AP/PA ONLY INDICATION: chest pain. TECHNIQUE: Single view chest 9:14 AM. CORRELATION STUDY: 01/29/2021 FINDINGS: The heart size, mediastinal configuration and pulmonary vascularity are within normal limits. The lungs are clear with no consolidating infiltrate. There is no significant effusion or pneumothorax. IMPRESSION: 1. Negative appearing single view chest. 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 I spoke with INOCENCIO Lai, and she took information to check with attending about possible transfer. 1348 Dr. Divina Brown accepted pt for transfer to and they will call back once they have a bed assignment. Transfer Facility: [facility] Method of Transfer: EMS Departure-Patient Inst. Referrals: PADMINI CORONADO APRN (PCP) Primary Care Physician DAVID GERBER MD (Family) Primary Care Physician TESSA DE OLIVEIRA MD July 06, 2021 10:11
[2021-07-06] MEDS ORDERED: CATHETER FLUSH 10 ML SYR IV PRN (10:15)
[2021-07-06] MEDS ORDERED: IOHEXOL 350 MG/ML 100 ML (OMNIPAQUE 350) VIAL IV ONE (10:15)
[2021-07-06] MEDS ORDERED: NS 100 ML (IVPB) BAG IV ONE (10:15)
[2021-07-06] MEDS ORDERED: HOLD METFORMIN - RECEIVED CONTRAST 20 ML VIAL IV SCH (10:15)
[2021-07-06] MEDS ORDERED: NS IV 1000 ML 1,000 ML IV STA ×2 (10:55→12:28)
--- NOTE | 2021-07-06 11:22 | Diagnostic Imaging Report ---
PROCEDURE: CT abdomen and pelvis with contrast. TECHNIQUE: Multiple contiguous axial images were obtained through the abdomen and pelvis after administration of intravenous contrast. Auto Exposure Controls were utilized during the CT exam to meet ALARA standards for radiation dose reduction. All CT scans use one or more of the following dose optimizing techniques: automated exposure control, MA and/or KvP adjustment based on patient size and exam type or iterative reconstruction. INDICATION: Elevated lipase, elevated white blood cell count and epigastric pain. Compared with abdominal pelvic CT 04/23/2021. FINDINGS: Edematous enlargement of the pancreatic head and uncinate process have increased from the prior consistent with a focal pancreatitis. The body and tail grossly unremarkable. The pancreatic duct nondilated however there is an enlarging intraparenchymal fluid collection within the anterior head measuring 2.8 x 2.1 cm today, previously 1.6 x 1.4 cm presumed pseudocyst. Seen best on axial image 66 is an intraluminal incomplete filling defect within the upper superior mesenteric vein likely incompletely occlusive thrombus within that vessel. Luminal opacification peripheral to that filling defect is present. Splenic vein and the main intra and extrahepatic portal veins are patent and showed normal opacification. There are however new rounded as well as tubular configured right and left lobe nonenhancing hypodensities within the liver and peripheral to these are vague regional parenchymal hypodensities wedged configured extending to the capsular surface. This is suspicious for small amounts of intraparenchymal lobe portal venous thrombus. Left and right main portal veins are patent. Hepatic cava and the hepatic veins appeared patent. There is no findings of arterial injury. There were no findings of arterial or venous gut ischemia. There is a trace free fluid along the right colic gutter. No significant pelvic ascites. No extraparenchymal acute fluid collection. Spleen in its vein unremarkable. Kidney showed renal cyst unobstructed nonacute. The adrenals negative. The aortoiliac vessels are atherosclerotic but patent and nonaneurysmal. There is a normal appendix. There is no diverticulitis. There is mild thickening of the urinary bladder wall is unchanged from prior. This may be chronic or reflect mild cystitis. Pelvic vasculature patent. No bowel obstruction. No gastric outlet obstruction. No significant ileus. IMPRESSION: Worsened or recurrent features of pancreatitis, isolated to its head and uncinate process with an enlarging intraparenchymal pseudocyst and new small volume free fluid. Incompletely occlusive thrombus within the upper superior mesenteric vein and likely small amounts of peripheral intraparenchymal right greater than left lobe. Hepatic portal venous thrombi. No biliary calculus. No ileus, obstruction or gastric outlet obstruction. Report was called to [facility] ER Dr. Humphrey by aranza at 11:22am. Dictated by: Dictated on workstation # [id number]
[2021-07-06] MEDS ORDERED: ENOXAPARIN 80 MG/0.8 ML (LOVENOX) SYR SC STA (11:55)
[2021-07-06] MEDS ORDERED: HYDROmorphone 2 MG/ML VIAL (DILAUDID) IV STA ×3 (12:28→16:48)
[2021-07-06 17:15] VITALS: BP 146/82
== END 2021-07-06 17:19 | disposition short-term general hospital (02) ==
LOC: EDUNIT# 09:01 → ER FS 09:03
DX: K85.90 Acute pancreatitis without necrosis or infection, unspecified (principal); K55.059 Acute (reversible) ischemia of intestine, part and extent unspecified; K86.3 Pseudocyst of pancreas; D72.829 Elevated white blood cell count, unspecified
CPT/HCPCS: 36415; 71045; 74177; 80053; 83605; 83690; 83735; 83874; 83880; 84484; 85007; 85027; 85610; 85730; 87040; 93041; G0480; 80320; 93005; Q9967

== ENCOUNTER 2021-07-29 13:22 | Emergency (ER) | payer SELFPAY ==
[~2021-07-29] VITALS: Ht 172 cm; Wt 55.6 kg
[2021-07-29] MEDS ORDERED: morphine INJ 10 MG/ML 1ML (SYR OR VIAL) IVP STA (13:34)
--- NOTE | 2021-07-29 13:39 | ED Abdominal Pain ---
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 Pain is sharp, constant, severe, goes through to his back. He says it feels like pancreatitis then. Started yesterday, tried his home oxycodone which has not been helping. He is otherwise denying any other acute complaints. He does say his temperature was slightly elevated around 100 F, but no cough, vomiting, diarrhea, chest pain, shortness of breath, or any other concerns like that. Allergies and Home Medications Allergies Uncoded Allergies: pcn (Allergy, Unknown, 01/29/21) Patient Home Medication List Home Medication List Reviewed: Yes Hydrocodone/Acetaminophen (Hydrocodone-Acetamin 5-325 mg) 1 Each Tablet, 1 TAB PO Q4H PRN for PAIN-MODERATE (5-7) Prescribed by: ORLANDO CARBALLO on 01/29/21 1635 Ondansetron (Ondansetron Odt) 4 Mg Tab.rapdis, 4 MG PO Q6H PRN for NAUSEA/VOMITING Prescribed by: ORLANDO CARBALLO on 01/29/21 1635 Review of Systems Review of Systems Constitutional: No fever EENTM: No Blurred Vision Respiratory: Denies Cough Cardiovascular: Denies Chest Pain Gastrointestinal: Abdominal Pain, Nausea Genitourinary: No Symptoms Reported Musculoskeletal: no symptoms reported Skin: no symptoms reported Psychiatric/Neurological: No Symptoms Reported Endocrine: No Symptoms Reported Hematologic/Lymphatic: No Symptoms Reported All Other Systems Reviewed Negative Unless Noted: Yes Past Rrcvnwu-Fouesw-Sjcluf Hx Patient Social History Tobacco Use?: No Substance use?: Yes Substance type: Marijuana Alcohol Use?: No Immunizations Up To Date First/Initial COVID19 Vaccinat: Not currently Second COVID19 Vaccination Aris: Not currently Third COVID19 Vaccination Date: Not currently Past Medical History Surgery/Hospitalization HX: myocarditis; SC, autoimmune, pancreatitis, pancreatic pseudocyst Surgeries: No Physical Exam Vital Signs Vital Signs - First Documented 07/29/21 13:57 Temp 36.7 Pulse 90 Resp 14 B/P (MAP) 143/103 (116) Pulse Ox 98 O2 Delivery Room Air Capillary Refill : Height/Weight/BMI Height: '" Weight: lbs. oz. kg; 21.00 BMI Method: General Appearance: WD/WN, mild distress HEENT: PERRL/EOMI, normal ENT inspection, pharynx normal Neck: non-tender, full range of motion, supple, normal inspection Respiratory: chest non-tender, lungs clear, normal breath sounds, no respiratory distress, no accessory muscle use Cardiovascular: no edema, no murmur, tachycardia Gastrointestinal: normal bowel sounds, soft; No distended, No guarding, No rebound; tenderness Extremities: normal range of motion, non-tender, normal inspection, no pedal edema, no calf tenderness, normal capillary refill Back: normal inspection, no CVA tenderness, no vertebral tenderness Neurologic/Psychiatric: no motor/sensory deficits, alert, normal mood/affect Skin: normal color, warm/dry Lymphatic: no adenopathy Focused Exam Lactate Level 07/29/21 14:07: Lactic Acid Level 2.02*H Lactic Acid Level Laboratory Tests Test 07/29/21 14:07 Lactic Acid Level 2.02 MMOL/L (0.50-2.00) *H Progress/Results/Core Measures Results/Orders Lab Results Laboratory Tests Test 07/29/21 13:45 07/29/21 14:07 Range/Units White Blood Count 17.5 H 4.3-11.0 10^3/uL Red Blood Count 5.90 H 4.30-5.52 10^6/uL Hemoglobin 18.8 H 13.3-17.7 g/dL Hematocrit 54 40-54 % Mean Corpuscular Volume 92 80-99 fL Mean Corpuscular Hemoglobin 32 25-34 pg Mean Corpuscular Hemoglobin Concent 35 32-36 g/dL Red Cell Distribution Width 12.7 10.0-14.5 % Platelet Count 340 130-400 10^3/uL Mean Platelet Volume 9.5 9.0-12.2 fL Immature Granulocyte % (Auto) 0 % Neutrophils (%) (Auto) 64 42-75 % Lymphocytes (%) (Auto) 28 12-44 % Monocytes (%) (Auto) 5 0-12 % Eosinophils (%) (Auto) 3 0-10 % Basophils (%) (Auto) 0 0-10 % Neutrophils # (Auto) 11.2 H 1.8-7.8 10^3/uL Lymphocytes # (Auto) 4.9 H 1.0-4.0 10^3/uL Monocytes # (Auto) 0.8 0.0-1.0 10^3/uL Eosinophils # (Auto) 0.4 H 0.0-0.3 10^3/uL Basophils # (Auto) 0.1 0.0-0.1 10^3/uL Immature Granulocyte # (Auto) 0.0 0.0-0.1 10^3/uL Neutrophils % (Manual) 74 % Lymphocytes % (Manual) 22 % Monocytes % (Manual) 3 % Eosinophils % (Manual) 0 % Basophils % (Manual) 0 % Band Neutrophils 1 % Prothrombin Time 21.6 H 12.2-14.7 SEC INR Comment 1.8 H 0.8-1.4 Activated Partial Thromboplast Time 45 H 24-35 SEC Sodium Level 140 135-145 MMOL/L Potassium Level 4.1 3.6-5.0 MMOL/L Chloride Level 101 98-107 MMOL/L Carbon Dioxide Level 26 21-32 MMOL/L Anion Gap 13 5-14 MMOL/L Blood Urea Nitrogen 6 L 7-18 MG/DL Creatinine 0.88 0.60-1.30 MG/DL Estimat Glomerular Filtration Rate 112 BUN/Creatinine Ratio 7 Glucose Level 122 H 70-105 MG/DL Calcium Level 10.0 8.5-10.1 MG/DL Corrected Calcium 9.8 8.5-10.1 MG/DL Total Bilirubin 0.4 0.1-1.0 MG/DL Aspartate Amino Transf (AST/SGOT) 19 5-34 U/L Alanine Aminotransferase (ALT/SGPT) 30 0-55 U/L Alkaline Phosphatase 137 H 40-136 U/L Total Protein 7.9 6.4-8.2 GM/DL Albumin 4.3 3.2-4.5 GM/DL Lipase 129 H 8-78 U/L Serum Alcohol < 10 <10 MG/DL Lactic Acid Level 2.02 *H 0.50-2.00 MMOL/L My Orders Orders - FRANCISCO JAVIER CHIRINOS MD Cbc With Automated Diff (07/29/21 13:34) Comprehensive Metabolic Panel (07/29/21 13:34) Lactic Acid Analyzer (07/29/21 13:34) Lipase (07/29/21 13:34) Protime With Inr (07/29/21 13:34) Partial Thromboplastin Time (07/29/21 13:34) Ed Iv/Invasive Line Start (07/29/21 13:34) Lactated Ringers (Lr 1000 Ml Iv Solution (07/29/21 13:45) Ondansetron Injection (Zofran Injectio (07/29/21 13:45) Morphine Injection (Morphine Injection (07/29/21 13:34) Ct Abdomen/Pelvis W (07/29/21 13:36) Iohexol Injection (Omnipaque 350 Mg/Ml 1 (07/29/21 13:45) Received Contrast (Hold Metformin- Contr (07/29/21 13:45) Sodium Chloride Flush (Catheter Flush Sy (07/29/21 13:45) Ns (Ivpb) (Sodium Chloride 0.9% Ivpb Bag (07/29/21 13:45) Alcohol (07/29/21 13:39) Manual Differential (07/29/21 13:45) Medications Given in ED Current Medications Medications Dose Ordered Sig/Rasheed Route Start Time Stop Time Status Last Admin Dose Admin Iohexol 100 ml ONCE ONCE IV 07/29/21 13:45 07/29/21 13:46 DC 07/29/21 13:58 100 ML Lactated Ringer's 1,000 ml @ 0 mls/hr Q0M ONCE IV 07/29/21 13:45 07/29/21 13:46 DC 07/29/21 13:50 0 MLS/HR Ondansetron HCl 4 mg ONCE ONCE IVP 07/29/21 13:45 07/29/21 13:46 DC 07/29/21 13:47 4 MG Sodium Chloride 10 ml NEEDED PRN IV 07/29/21 13:45 07/29/21 13:58 10 ML Sodium Chloride 100 ml ONCE ONCE IV 07/29/21 13:45 07/29/21 13:46 DC 07/29/21 13:58 100 ML Vital Signs/I&O 07/29/21 13:57 Temp 36.7 Pulse 90 Resp 14 B/P (MAP) 143/103 (116) Pulse Ox 98 O2 Delivery Room Air Progress Progress Note : Progress Note 40-year-old male with above history coming in due to epigastric pain that feels like his pancreatitis. ABCs were intact and vitals were stable on presentation. An IV was placed and he was given a bolus of IV fluids, Zofran, and morphine. Pain significantly improved. Basic labs with lipase elevated but not 3 times the upper limits of normal which would not be consistent with pancreatitis. CT abdomen pelvis with some inflammatory changes around his pancreas, but they are improved from prior. Pseudocyst slightly larger but no overt signs of infection in his abdomen. White blood cell count 17 down from prior of 19. On reassessment he was feeling better, but still having pain. I gave him oral oxycodone to try to bridge him to oral medicine so he can try to deal with this at home. He says he had 10 oxycodone prescribed him today, he took 1, and has 9 left. I told him I will send another prescription that he can fill when this is over with if this is pancreatitis that is just starting, he can try clear liquids at home for a few days to see if it improves. I believe he stable for discharge with outpatient follow-up. He was sent home with strict return precautions Diagnostic Imaging Diagonstic Imaging: CT (abd/pelvis) Comments [facility] [place], [place] NAME: LISETH LOOMIS [facility] REC#: [id number] PT STATUS: REG ER : 1980 PHYSICIAN: FRANCISCO JAVIER CHIRINOS MD ADMIT DATE: 07/29/21/ER FS Draft Date of Exam:07/29/21 CT ABDOMEN/PELVIS W INDICATION: History of pancreatitis, now with fever. TECHNIQUE: Multiple contiguous axial images were obtained through the abdomen and pelvis after administration of intravenous contrast. Auto Exposure Controls were utilized during the CT exam to meet ALARA standards for radiation dose reduction. All CT scans use one or more of the following dose optimizing techniques: automated exposure control, MA and/or KvP adjustment based on patient size and exam type or iterative reconstruction. COMPARISON: 07/07/2019. FINDINGS: The visualized portions of the lung bases are clear. There is no pleural fluid collection. There is no free intraperitoneal air. The liver shows inhomogeneous low-density changes, compatible with fatty infiltration. There is a small cyst in the left lobe of the liver which is unchanged. There is a small apparent hemangioma in the right lobe of the liver superiorly. The spleen, adrenals, and kidneys appear unremarkable except for a couple of small benign cysts in the left kidney which appear unchanged. There is no retroperitoneal mass or adenopathy. There appears to be a pseudocyst in the pancreatic head. The pseudocyst has enlarged compared to the prior study. It now measures about 4.1 cm in diameter compared to about 2.9 cm when measured at the same level on the previous study. The surrounding edema in the peripancreatic fat appears to be partially improved. The portal vein, splenic vein, and SMV are patent. On the prior study, there had been partial thrombus in the upper SMV but this appears to have resolved. IMPRESSION: Compared to the prior study of 07/06/2021, the pseudocyst in the pancreatic head appears to be somewhat increased in size now measuring 4.1 cm in greatest diameter. The inflammatory changes in the peripancreatic fat have partially improved. On the prior study, the patient had partial thrombosis of the SMV but this appears to have essentially resolved. There is diffuse fatty infiltration of the shoulder. There are benign-appearing cysts in the left kidney and left lobe of the liver. There is a small hemangioma in the right lobe of the liver. Dictated on workstation # [id number] Dict: 07/29/21 1410 Trans: 07/29/21 1421 [id number] Interpreted by: JOSHUA LOGAN MD Electronically signed by: Departure Impression Primary Impression: Abdominal pain Qualified Codes: R10.13 - Epigastric pain Additional Impression: Pseudocyst of pancreas Disposition: 01 HOME, SELF-CARE Condition: Stable Departure-Patient Inst. Decision time for Depature: 14:56 Referrals: PADMINI CORONADO APRN (PCP) Primary Care Physician DAVID GERBER MD (Family) Primary Care Physician Patient Instructions: Pancreatitis (DC) Add. Discharge Instructions: Your labs look okay today, but it is possible you are developing pancreatitis. Switch to a clear liquid diet for the next 2 to 3 days and then slowly advance her diet. The last thing you should add when you are feeling completely better would be fatty foods or greasy foods. Kmak to an ER if you are having worsening severe pain or any other concerns. Take oxycodone for the severe pain. He can also take ibuprofen and/or Tylenol. Take the Zofran that you already have as needed for nausea. Scripts Oxycodone HCl (Oxycodone HCl) 5 Mg Tablet 5 MG PO Q6H PRN for PAIN-SEVERE (8-10) for 3 Days, #12 TAB Prov: FRANCISCO JAVIER CHIRINOS MD 07/29/21 Work/School Note: Work Release Form Date Seen in the Emergency Department: Jul 29, 2021 Return to Work: Aug 02, 2021 Restrictions: No Restrictions FRANCISCO JAVIER CHIRINOS MD Jul 29, 2021 13:39
[2021-07-29] MEDS ORDERED: NS 100 ML (IVPB) BAG IV ONE (13:45)
[2021-07-29] MEDS ORDERED: ONDANSETRON 4 MG/2 ML (SDV) Z0FRAN IVP ONE (13:45)
[2021-07-29] MEDS ORDERED: LACTATED RINGERS 1,000 ML IV ONE (13:45)
[2021-07-29] MEDS ORDERED: CATHETER FLUSH 10 ML SYR IV PRN (13:45)
[2021-07-29] MEDS ORDERED: IOHEXOL 350 MG/ML 100 ML (OMNIPAQUE 350) VIAL IV ONE (13:45)
[2021-07-29] MEDS ORDERED: HOLD METFORMIN - RECEIVED CONTRAST 20 ML VIAL IV SCH (13:45)
[2021-07-29 13:50] LABS: BASOPHILS # (AUTO) 0.1 10^3/uL (0.0-0.1); BASOPHILS % (AUTO) 0 % (0-10); EOSINOPHILS # (AUTO) 0.4 10^3/uL (0.0-0.3); EOSINOPHILS % (AUTO) 3 % (0-10); HEMATOCRIT 54 % (40-54); HEMOGLOBIN 18.8 g/dL (13.3-17.7); LYMPHOCYTES # (AUTO) 4.9 10^3/uL (1.0-4.0); LYMPHOCYTES % (AUTO) 28 % (12-44); MEAN CORPUSCULAR HEMOGLOBIN 32 pg (25-34); MEAN CORPUSCULAR HGB CONC 35 g/dL (32-36); MEAN CORPUSCULAR VOLUME 92 fL (80-99); MEAN PLATELET VOLUME 9.5 fL (9.0-12.2); MONOCYTES # (AUTO) 0.8 10^3/uL (0.0-1.0); MONOCYTES % (AUTO) 5 % (0-12); NEUTROPHILS # (AUTO) 11.2 10^3/uL (1.8-7.8); NEUTROPHILS % (AUTO) 64 % (42-75); PLATELET COUNT 340 10^3/uL (130-400); WHITE BLOOD COUNT 17.5 10^3/uL (4.3-11.0)
[2021-07-29 14:04] LABS: INR 1.8 (0.8-1.4); PROTHROMBIN TIME PATIENT 21.6 SEC (12.2-14.7)
[2021-07-29 14:15] LABS: BAND NEUTROPHILS 1 %; BASOPHILS % (MANUAL) 0 %; EOSINOPHILS % (MANUAL) 0 %; LYMPHOCYTES % (MANUAL) 22 %; MONOCYTES % (MANUAL) 3 %; NEUTROPHILS % (MANUAL) 74 %
[2021-07-29 14:19] LABS: POTASSIUM 4.1 MMOL/L (3.6-5.0); SODIUM 140 MMOL/L (135-145)
[2021-07-29 14:20] LABS: ALANINE AMINOTRANSFERASE 30 U/L (0-55); ALBUMIN 4.3 GM/DL (3.2-4.5); ALKALINE PHOSPHATASE 137 U/L (40-136); BILIRUBIN,TOTAL 0.4 MG/DL (0.1-1.0); BUN/CREATININE RATIO 7; CARBON DIOXIDE 26 MMOL/L (21-32); CHLORIDE 101 MMOL/L (98-107); CREATININE SERUM 0.88 MG/DL (0.60-1.30); GFR ESTIMATED 112; GLUCOSE 122 MG/DL (70-105); LIPASE 129 U/L (8-78); TOTAL PROTEIN 7.9 GM/DL (6.4-8.2)
--- NOTE | 2021-07-29 14:21 | Diagnostic Imaging Report ---
INDICATION: History of pancreatitis, now with fever. TECHNIQUE: Multiple contiguous axial images were obtained through the abdomen and pelvis after administration of intravenous contrast. Auto Exposure Controls were utilized during the CT exam to meet ALARA standards for radiation dose reduction. All CT scans use one or more of the following dose optimizing techniques: automated exposure control, MA and/or KvP adjustment based on patient size and exam type or iterative reconstruction. COMPARISON: 07/07/2019. FINDINGS: The visualized portions of the lung bases are clear. There is no pleural fluid collection. There is no free intraperitoneal air. The liver shows inhomogeneous low-density changes, compatible with fatty infiltration. There is a small cyst in the left lobe of the liver which is unchanged. There is a small apparent hemangioma in the right lobe of the liver superiorly. The spleen, adrenals, and kidneys appear unremarkable except for a couple of small benign cysts in the left kidney which appear unchanged. There is no retroperitoneal mass or adenopathy. There appears to be a pseudocyst in the pancreatic head. The pseudocyst has enlarged compared to the prior study. It now measures about 4.1 cm in diameter compared to about 2.9 cm when measured at the same level on the previous study. The surrounding edema in the peripancreatic fat appears to be partially improved. The portal vein, splenic vein, and SMV are patent. On the prior study, there had been partial thrombus in the upper SMV but this appears to have resolved. IMPRESSION: Compared to the prior study of 07/06/2021, the pseudocyst in the pancreatic head appears to be somewhat increased in size now measuring 4.1 cm in greatest diameter. The inflammatory changes in the peripancreatic fat have partially improved. On the prior study, the patient had partial thrombosis of the SMV but this appears to have essentially resolved. There is diffuse fatty infiltration of the shoulder. There are benign-appearing cysts in the left kidney and left lobe of the liver. There is a small hemangioma in the right lobe of the liver. Dictated by: Dictated on workstation # [id number]
[2021-07-29] MEDS ORDERED: OXYC5TAB PO (14:58)
[2021-07-29 15:16] VITALS: BP 136/89
== END 2021-07-29 15:05 | disposition home or self-care (01) ==
LOC: EDUNIT# 13:22 → ER FS 13:23
DX: K86.3 Pseudocyst of pancreas (principal); Z87.19 Personal history of other diseases of the digestive system; Z86.718 Personal history of other venous thrombosis and embolism; Z79.01 Long term (current) use of anticoagulants
CPT/HCPCS: 36415; 74177; 80053; 83605; 83690; 85007; 85027; 85610; 85730; 99284; G0480; 80320; Q9967

== ENCOUNTER 2021-07-31 15:09 | Emergency (ER) | payer SELFPAY ==
[~2021-07-31 15:09] MED LIST changes: +OXYC5TAB PO
[2021-07-31] MEDS ORDERED: NS IV 1000 ML 1,000 ML IV STA ×2 (15:21→17:25)
[2021-07-31] MEDS ORDERED: HYDROmorphone 2 MG/ML VIAL (DILAUDID) IV STA ×3 (15:21→17:25)
[2021-07-31] MEDS ORDERED: ONDANSETRON 4 MG/2 ML (SDV) Z0FRAN IVP STA ×2 (15:21→17:25)
[2021-07-31 15:25] LABS: BASOPHILS # (AUTO) 0.1 10^3/uL (0.0-0.1); BASOPHILS % (AUTO) 1 % (0-10); EOSINOPHILS # (AUTO) 0.5 10^3/uL (0.0-0.3); EOSINOPHILS % (AUTO) 3 % (0-10); HEMATOCRIT 51 % (40-54); HEMOGLOBIN 18.2 g/dL (13.3-17.7); LYMPHOCYTES # (AUTO) 5.5 10^3/uL (1.0-4.0); LYMPHOCYTES % (AUTO) 29 % (12-44); MEAN CORPUSCULAR HEMOGLOBIN 33 pg (25-34); MEAN CORPUSCULAR HGB CONC 36 g/dL (32-36); MEAN CORPUSCULAR VOLUME 91 fL (80-99); MEAN PLATELET VOLUME 9.5 fL (9.0-12.2); MONOCYTES # (AUTO) 1.1 10^3/uL (0.0-1.0); MONOCYTES % (AUTO) 6 % (0-12); NEUTROPHILS % (AUTO) 62 % (42-75); PLATELET COUNT 308 10^3/uL (130-400); WHITE BLOOD COUNT 19.2 10^3/uL (4.3-11.0)
[2021-07-31 15:34] LABS: INR 1.5 (0.8-1.4); PROTHROMBIN TIME PATIENT 18.7 SEC (12.2-14.7)
--- NOTE | 2021-07-31 15:41 | ED GI ---
General Chief Complaint: Abdominal/GI Problems Stated Complaint: STOMACH/BACK PAIN Nursing Triage Note: Patient presents to the ED with c/o abdominal pain. Reports the pain began this morning. States, "My pancreas is flaring up." Reports taking oxycodone with no relief. Reports nausea without vomiting. Source of Information: Patient, Old Records History of Present Illness Date Seen by Provider: Jul 31, 2021 Time Seen by Provider: 15:09 Initial Comments 40-year-old male presenting with recurrent abdominal pain radiating to his back and chest. He has had nausea without vomiting. He states this feels like his pancreas is flaring up. He was seen 2 days ago on the for similar symptoms and at that time his white blood cell count was improved from previous but it was still elevated at 17,000. He also had stable chemistry panel with lipase of 179. He had improved pain and wanted to try things at home with a clear liquid diet and oxycodone for pain. He states that Monday on the he was doing okay at home but then today he had pain flareup again. He had tried taking oxycodone pain pill at noon but it had not made any difference on his pain. He denies fever, chills, change in bowels, pain with urination, shortness of breath, cough. He states he has not drank any alcohol for over a month. Timing/Duration: Getting Worse (Pain for the last several days but worse today) Severity/Quality: Severe, Sharp Location: RUQ, Epigastric, Flank Radiation: Back, Chest Activities at Onset: None Modifying Factors: Worsens With Eating, Worsens With Movement, Worsens With Pa lpation Associated Symptoms: Back Pain (Abdominal pain radiates to his back and into his chest); No Diaphoresis, No Fever/Chills, No Fatigue, No Headache, No Heartburn; Nausea/Vomiting (Nausea but no vomiting); No Rash, No Shortness of Air, No Swelling/Mass in Abdomen, No Syncope, No Weakness Allergies and Home Medications Allergies Uncoded Allergies: pcn (Allergy, Unknown, 01/29/21) Patient Home Medication List Home Medication List Reviewed: Yes Hydrocodone/Acetaminophen (Hydrocodone-Acetamin 5-325 mg) 1 Each Tablet, 1 TAB PO Q4H PRN for PAIN-MODERATE (5-7) Prescribed by: ORLANDO CARBALLO on 01/29/21 1635 Ondansetron (Ondansetron Odt) 4 Mg Tab.rapdis, 4 MG PO Q6H PRN for NAUSEA/VOMITING Prescribed by: ORLANDO CARBALLO on 01/29/21 1635 Oxycodone HCl (Oxycodone HCl) 5 Mg Tablet, 5 MG PO Q6H PRN for PAIN-SEVERE (8- 10) Prescribed by: FRANCISCO JAVIER CHIRINOS on 07/29/21 9985 Review of Systems Review of Systems Constitutional: No chills, No fever EENTM: No Symptoms Reported Respiratory: No Symptoms Reported Cardiovascular: See HPI Gastrointestinal: See HPI Genitourinary: No Symptoms Reported Musculoskeletal: no symptoms reported Skin: no symptoms reported Psychiatric/Neurological: Anxiety Endocrine: No Symptoms Reported Hematologic/Lymphatic: Blood Clots (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) Past Nmxnpts-Kgfgbp-Lhsmft Hx Patient Social History Tobacco Use?: Yes Tobacco type used: Cigarettes Smoking Status: Current Everyday Smoker Substance use?: Yes Substance type: Marijuana Substance frequency: Once in a while Alcohol Use?: No Pt feels they are or have been: No Immunizations Up To Date First/Initial COVID19 Vaccinat: Not currently Second COVID19 Vaccination Aris: Not currently Third COVID19 Vaccination Date: Not currently Past Medical History Surgery/Hospitalization HX: myocarditis; ND, autoimmune, pancreatitis, pancreatic pseudocyst, 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 oz. kg; 18.00 BMI Method: General Appearance: moderate distress, thin HEENT: PERRL/EOMI, pharynx normal Neck: non-tender, full range of motion, supple, normal inspection Respiratory: chest non-tender, lungs clear, normal breath sounds, no respiratory distress, no accessory muscle use Cardiovascular: normal peripheral pulses, regular rate, rhythm Gastrointestinal: normal bowel sounds, soft, no pulsatile mass; No distended; guarding; No rebound; tenderness (epigastric and RUQ) Rectal: deferred Extremities: normal range of motion, non-tender, normal inspection, no pedal edema, no calf tenderness, normal capillary refill Back: no CVA tenderness 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 no rebound Focused Exam Lactate Level 07/31/21 15:38: Lactic Acid Level 1.73 Lactic Acid Level Laboratory Tests Test 07/31/21 15:38 Lactic Acid Level 1.73 MMOL/L (0.50-2.00) Progress/Results/Core Measures Results/Orders Lab Results Laboratory Tests Test 07/31/21 15:20 07/31/21 15:38 07/31/21 17:52 Range/Units White Blood Count 19.2 H 4.3-11.0 10^3/uL Red Blood Count 5.60 H 4.30-5.52 10^6/uL Hemoglobin 18.2 H 13.3-17.7 g/dL Hematocrit 51 40-54 % Mean Corpuscular Volume 91 80-99 fL Mean Corpuscular Hemoglobin 33 25-34 pg Mean Corpuscular Hemoglobin Concent 36 32-36 g/dL Red Cell Distribution Width 12.7 10.0-14.5 % Platelet Count 308 130-400 10^3/uL Mean Platelet Volume 9.5 9.0-12.2 fL Immature Granulocyte % (Auto) 0 % Neutrophils (%) (Auto) 62 42-75 % Lymphocytes (%) (Auto) 29 12-44 % Monocytes (%) (Auto) 6 0-12 % Eosinophils (%) (Auto) 3 0-10 % Basophils (%) (Auto) 1 0-10 % Neutrophils # (Auto) 12.0 H 1.8-7.8 10^3/uL Lymphocytes # (Auto) 5.5 H 1.0-4.0 10^3/uL Monocytes # (Auto) 1.1 H 0.0-1.0 10^3/uL Eosinophils # (Auto) 0.5 H 0.0-0.3 10^3/uL Basophils # (Auto) 0.1 0.0-0.1 10^3/uL Immature Granulocyte # (Auto) 0.1 0.0-0.1 10^3/uL Neutrophils % (Manual) 68 % Lymphocytes % (Manual) 29 % Monocytes % (Manual) 1 % Eosinophils % (Manual) 2 % Prothrombin Time 18.7 H 12.2-14.7 SEC INR Comment 1.5 H 0.8-1.4 Activated Partial Thromboplast Time 36 H 24-35 SEC Sodium Level 137 135-145 MMOL/L Potassium Level 4.0 3.6-5.0 MMOL/L Chloride Level 101 98-107 MMOL/L Carbon Dioxide Level 24 21-32 MMOL/L Anion Gap 12 5-14 MMOL/L Blood Urea Nitrogen 8 7-18 MG/DL Creatinine 0.94 0.60-1.30 MG/DL Estimat Glomerular Filtration Rate 106 BUN/Creatinine Ratio 9 Glucose Level 110 H 70-105 MG/DL Calcium Level 10.2 H 8.5-10.1 MG/DL Corrected Calcium 10.0 8.5-10.1 MG/DL Total Bilirubin 0.8 0.1-1.0 MG/DL Aspartate Amino Transf (AST/SGOT) 19 5-34 U/L Alanine Aminotransferase (ALT/SGPT) 24 0-55 U/L Alkaline Phosphatase 137 H 40-136 U/L Total Protein 8.0 6.4-8.2 GM/DL Albumin 4.3 3.2-4.5 GM/DL Lipase 142 H 8-78 U/L Serum Alcohol < 10 <10 MG/DL Lactic Acid Level 1.73 0.50-2.00 MMOL/L Urine Color YELLOW Urine Clarity CLEAR Urine pH 7.5 5-9 Urine Specific Sabael <=1.005 1.016-1.022 Urine Protein NEGATIVE NEGATIVE Urine Glucose (UA) NEGATIVE NEGATIVE Urine Ketones NEGATIVE NEGATIVE Urine Nitrite NEGATIVE NEGATIVE Urine Bilirubin NEGATIVE NEGATIVE Urine Urobilinogen 0.2 < = 1.0 MG/DL Urine Leukocyte Esterase NEGATIVE NEGATIVE Urine RBC (Auto) TRACE-I H NEGATIVE Urine RBC 0-2 /HPF Urine WBC RARE /HPF Urine Crystals NONE /LPF Urine Bacteria NEGATIVE /HPF Urine Casts NONE /LPF Urine Mucus NEGATIVE /LPF Urine Culture Indicated NO Urine Opiates Screen NEGATIVE NEGATIVE Urine Oxycodone Screen POSITIVE H NEGATIVE Urine Methadone Screen NEGATIVE NEGATIVE Urine Propoxyphene Screen NEGATIVE NEGATIVE Urine Barbiturates Screen NEGATIVE NEGATIVE Ur Tricyclic Antidepressants Screen NEGATIVE NEGATIVE Urine Phencyclidine Screen NEGATIVE NEGATIVE Urine Amphetamines Screen NEGATIVE NEGATIVE Urine Methamphetamines Screen NEGATIVE NEGATIVE Urine Benzodiazepines Screen NEGATIVE NEGATIVE Urine Cocaine Screen NEGATIVE NEGATIVE Urine Cannabinoids Screen POSITIVE H NEGATIVE My Orders Orders - ENYART,TESSA E MD Comprehensive Metabolic Panel (07/31/21 15:20) Lipase (07/31/21 15:20) Ua Culture If Indicated (07/31/21 15:20) Ed Iv/Invasive Line Start (07/31/21 15:20) Cbc With Automated Diff (07/31/21 15:20) Drug Screen Stat (Urine) (07/31/21 15:20) Alcohol (07/31/21 15:20) Hydromorphone Injection (Dilaudid Inject (07/31/21 15:21) Ondansetron Injection (Zofran Injectio (07/31/21 15:21) Ns Iv 1000 Ml (Sodium Chloride 0.9%) (07/31/21 15:21) Lactic Acid Analyzer (07/31/21 15:23) Protime With Inr (07/31/21 15:23) Partial Thromboplastin Time (07/31/21 15:23) Manual Differential (07/31/21 15:20) Hydromorphone Injection (Dilaudid Inject (07/31/21 16:10) Hydromorphone Injection (Dilaudid Inject (07/31/21 17:25) Ondansetron Injection (Zofran Injectio (07/31/21 17:25) Ns Iv 1000 Ml (Sodium Chloride 0.9%) (07/31/21 17:25) Vital Signs/I&O 07/31/21 07/31/21 15:15 17:43 Temp 36.6 36.6 Pulse 86 75 Resp 18 18 B/P (MAP) 111/90 (97) 115/72 Pulse Ox 100 100 O2 Delivery Room Air Room Air Blood Pressure Mean: 97 Progress Progress Note #1: Progress Note Reviewed prior records in the electronic medical record. His CT scan on July 29 that showed enlargement of his pancreatic pseudocyst up to 4.1 cm. He had peripancreatic inflammation that was partially improved from July 06 CT scan. Will recheck his labs and administer normal saline 1 L IV fluid bolus for hydration, Dilaudid 1 mg IV for pain, Zofran 4 mg IV for nausea. Since he just had a CT scan 2 days ago will defer repeating that at this point unless his pain is not controlled or his labs are showing a significant worsening from . Differential diagnosis includes acute pancreatitis, pancreatic pseudocyst pain, cholecystitis, gastritis Progress Note #2: Progress Note White blood cell count has gone up slightly since the . He is back up to 19.2 now from . He has stable chemistry panel. His lipase now is 147. He has INR 1.5. He has been having daily pain despite the medication so a repeat dose of Dilaudid was given. Since he is not tolerating clear liquid diet and pain control at home as well as he is having increased size of the pseudocyst based off of the CT scan from July 29 we will check with [facility] about admission. He has already been established with [facility] for the GI service there and prefers to try and go back there since they already know his case. He was admitted there less than a month ago for superior mesenteric vein thrombosis and his pancreatitis. Progress Note #3: Progress Note 1624 discussed with INOCENCIO Goodson at [facility] transfer center. He took info rmation about the patient and will call back. 170 INOCENCIO Goodson called back from the transfer center and stated that Dr. Solorzano accepted pt for admit and they gave a room assignment. Patient was given an additional dose of pain medicine, nausea medicine and IV fluids prior to ambulance transfer. Departure Impression Primary Impression: Pseudocyst of pancreas Additional Impression: Chronic recurrent pancreatitis Disposition: S[facility]-TRM HOSP Condition: Stable Transfer Transfer Reason: Exceeds level of care (GI specialist for Pancreatic Pseudocyst and continuity of care since already established with GI at [facility]) Time Spoke to Accepting Phy: 17:01 Transfer Progress Notes d/w INOCENCIO Goodson, at [facility] Transfer center and he called back at 1701 with room assignment and accepting physician of Dr. Solorzano. Transfer Facility: [facility] Method of Transfer: EMS Departure-Patient Inst. Referrals: PADMINI CORONADO APRN (PCP) Primary Care Physician DAVID GERBER MD (Family) Primary Care Physician TESSA DE OLIVEIRA MD Jul 31, 2021 15:41
[2021-07-31 15:44] LABS: CARBON DIOXIDE 24 MMOL/L (21-32); CHLORIDE 101 MMOL/L (98-107); SODIUM 137 MMOL/L (135-145)
[2021-07-31 15:45] LABS: ALANINE AMINOTRANSFERASE 24 U/L (0-55); ALBUMIN 4.3 GM/DL (3.2-4.5); ALKALINE PHOSPHATASE 137 U/L (40-136); BILIRUBIN,TOTAL 0.8 MG/DL (0.1-1.0); BUN/CREATININE RATIO 9; CALCIUM 10.2 MG/DL (8.5-10.1); CREATININE SERUM 0.94 MG/DL (0.60-1.30); GFR ESTIMATED 106; GLUCOSE 110 MG/DL (70-105); LIPASE 142 U/L (8-78)
[2021-07-31 16:01] LABS: EOSINOPHILS % (MANUAL) 2 %; LYMPHOCYTES % (MANUAL) 29 %; MONOCYTES % (MANUAL) 1 %; NEUTROPHILS % (MANUAL) 68 %
[2021-07-31 17:43] VITALS: BP 115/72
[2021-07-31 17:56] LABS: BILIRUBIN,URINE NEGATIVE (NEGATIVE); CLARITY,URINE CLEAR; COLOR,URINE YELLOW; GLUCOSE, URINE (UA) NEGATIVE (NEGATIVE); KETONES,URINE NEGATIVE (NEGATIVE); LEUKOCYTE ESTERASE ,URINE NEGATIVE (NEGATIVE); NITRITE,URINE NEGATIVE (NEGATIVE); PH,URINE 7.5 (5-9); PROTEIN,URINE NEGATIVE (NEGATIVE)
[2021-07-31 17:59] LABS: BACTERIA,URINE NEGATIVE /HPF; RBC,URINE 0-2 /HPF; WBC,URINE RARE /HPF
[2021-07-31 18:07] LABS: AMPHETAMINE SCREEN, URINE NEGATIVE (NEGATIVE); BARBITURATE SCREEN URINE NEGATIVE (NEGATIVE); BENZODIAZEPINES SCREEN URINE NEGATIVE (NEGATIVE); CANNABINOID SCREEN, URINE POSITIVE (NEGATIVE); COCAINE SCREEN URINE NEGATIVE (NEGATIVE); METHADONE STAT NEGATIVE (NEGATIVE); OPIATE SCREEN URINE NEGATIVE (NEGATIVE); OXYCODONE STAT POSITIVE (NEGATIVE); PROPOXYPHENE STAT NEGATIVE (NEGATIVE); TRICYCLIC ANTIDEPRESSANTS SCRE NEGATIVE (NEGATIVE)
== END 2021-07-31 17:43 | disposition short-term general hospital (02) ==
LOC: EDUNIT# 15:09 → ER FS 15:11
DX: K86.3 Pseudocyst of pancreas (principal); K86.1 Other chronic pancreatitis; F17.210 Nicotine dependence, cigarettes, uncomplicated; Z86.718 Personal history of other venous thrombosis and embolism; Z28.310 Unvaccinated for COVID-19
CPT/HCPCS: 36415; 80053; 80306; 81000; 83605; 83690; 85007; 85027; 85610; 85730; 99285; G0480; 80320

== ENCOUNTER 2021-08-18 20:04 | Emergency (ER) | payer SELFPAY ==
[~2021-08-18] VITALS: Ht 176 cm; Wt 63.0 kg
[2021-08-18] MEDS ORDERED: NS IV 1000 ML 1,000 ML IV STA (20:21)
[2021-08-18] MEDS ORDERED: HYDROmorphone 2 MG/ML VIAL (DILAUDID) IV STA (20:21)
[2021-08-18] MEDS ORDERED: KETOROLAC 30 MG/ML VIAL IVP STA (20:21)
[2021-08-18] MEDS ORDERED: ONDANSETRON 4 MG/2 ML (SDV) Z0FRAN IVP STA (20:21)
[2021-08-18 20:24] LABS: BASOPHILS # (AUTO) 0.1 10^3/uL (0.0-0.1); BASOPHILS % (AUTO) 1 % (0-10); EOSINOPHILS # (AUTO) 0.5 10^3/uL (0.0-0.3); EOSINOPHILS % (AUTO) 3 % (0-10); HEMATOCRIT 48 % (40-54); HEMOGLOBIN 16.8 g/dL (13.3-17.7); LYMPHOCYTES # (AUTO) 6.3 10^3/uL (1.0-4.0); LYMPHOCYTES % (AUTO) 34 % (12-44); MEAN CORPUSCULAR HEMOGLOBIN 32 pg (25-34); MEAN CORPUSCULAR HGB CONC 35 g/dL (32-36); MEAN CORPUSCULAR VOLUME 90 fL (80-99); MEAN PLATELET VOLUME 9.4 fL (9.0-12.2); MONOCYTES # (AUTO) 0.9 10^3/uL (0.0-1.0); MONOCYTES % (AUTO) 5 % (0-12); NEUTROPHILS # (AUTO) 10.6 10^3/uL (1.8-7.8); NEUTROPHILS % (AUTO) 57 % (42-75); PLATELET COUNT 453 10^3/uL (130-400); WHITE BLOOD COUNT 18.5 10^3/uL (4.3-11.0)
[2021-08-18] MEDS ORDERED: IOHEXOL 350 MG/ML 100 ML (OMNIPAQUE 350) VIAL IV ONE (20:30)
[2021-08-18] MEDS ORDERED: NS 100 ML (IVPB) BAG IV ONE (20:30)
[2021-08-18] MEDS ORDERED: HOLD METFORMIN - RECEIVED CONTRAST 20 ML VIAL IV SCH (20:30)
[2021-08-18] MEDS ORDERED: CATHETER FLUSH 10 ML SYR IV PRN (20:30)
[2021-08-18 20:40] LABS: INR 1.8 (0.8-1.4)
--- NOTE | 2021-08-18 20:42 | ED General ---
General Chief Complaint: Chest Pain Stated Complaint: CP,ABD PAIN Nursing Triage Note: patient states chest pain 6 hours right side, states recently had gallbladder surgery. patient states he was at work sitting at desk when pain started. Source of Information: Patient, Old Records History of Present Illness Date Seen by Provider: Aug 18, 2021 Time Seen by Provider: 20:09 Initial Comments 40-year-old male presenting with complaints of right-sided chest pain for the last 4 to 6 hours. He also has some pain to the right flank around one of the laparoscopic incision sites. This started yesterday after he had a coughing fit. He has no nausea or vomiting. He has taken oxycodone and Tylenol at home with little to no improvement of his pain. He denies fever or chills, nausea, vomiting, diarrhea. He had a laparoscopic cholecystectomy done approximately 1 week ago at [facility]. Timing/Duration: 4-6 Hours Severity: Severe Modifying Factors: worse with Movement Associated Systoms: Chest Pain (right sided) Allergies and Home Medications Allergies Uncoded Allergies: pcn (Allergy, Unknown, 01/29/21) Patient Home Medication List Home Medication List Reviewed: Yes Hydrocodone/Acetaminophen (Hydrocodone-Acetamin 5-325 mg) 1 Each Tablet, 1 TAB PO Q4H PRN for PAIN-MODERATE (5-7) Prescribed by: ORLANDO CARBALLO on 01/29/21 1635 Ondansetron (Ondansetron Odt) 4 Mg Tab.rapdis, 4 MG PO Q6H PRN for NAUSEA/VOMITING Prescribed by: ORLANDO CARBALLO on 01/29/21 1635 Oxycodone HCl (Oxycodone HCl) 5 Mg Tablet, 5 MG PO Q6H PRN for PAIN-SEVERE (8- 10) Prescribed by: FRANCISCO JAVIER CHIRINOS on 07/29/21 7983 Review of Systems Review of Systems Constitutional: No chills, No fever EENTM: no symptoms reported Respiratory: see HPI Cardiovascular: see HPI Gastrointestinal: see HPI Musculoskeletal: muscle pain (right sided abdominal and chest wall ) Skin: change in color Psychiatric/Neurological: Anxiety Hematologic/Lymphatic: Blood Clots (hx of superior mesenteric vein thrombosis), Easy Bleeding (Taking blood thinner), Easy Bruising (Taking blood thinner) Past Gcacmqr-Ezwxiz-Yaceer Hx Immunizations Up To Date First/Initial COVID19 Vaccinat: Not currently Second COVID19 Vaccination Aris: Not currently Third COVID19 Vaccination Date: Not currently Past Medical History Surgery/Hospitalization HX: myocarditis; [facility], autoimmune, pancreatitis, pancreatic pseudocyst, superior mesenteric vein thrombosis June 2021 Surgeries: No Physical Exam Vital Signs Vital Signs - First Documented 08/18/21 20:08 Temp 36.7 Pulse 76 Resp 20 B/P (MAP) 159/86 (110) Pulse Ox 100 O2 Delivery Room Air Capillary Refill : Less Than 3 Seconds Height, Weight, BMI Height: '" Weight: lbs. oz. kg; 20.00 BMI Method: General Appearance: Anxious, Moderate Distress, Thin HEENT: PERRL/EOMI, Pharynx Normal, Moist Mucous Membranes Neck: Full Range of Motion, Normal Inspection, Non Tender, Supple Respiratory: No Chest Non Tender (Tender to palpation on the right lower anterior chest wall. There is no crepitus or step-off when palpating over the ribs); Lungs Clear, Normal Breath Sounds, No Accessory Muscle Use, No Respiratory Distress Cardiovascular: Regular Rate, Rhythm, No Murmur, Normal Peripheral Pulses Gastrointestinal: Normal Bowel Sounds, No Pulsatile Mass, Soft; No Distended, No Guarding, No Rebound; Tenderness (Tender to palpation of the right flank and side of the abdomen. Especially tender around the most lateral laparoscopic mejía rgical incision) Rectal: Deferred Extremity: Normal Capillary Refill, Normal Inspection, No Calf Tenderness, No Pedal Edema Neurologic/Psychiatric: Alert, Oriented x3, paper sealer II-XII Norm as Tested Skin: Warm/Dry; No Rash Progress/Results/Core Measures Suspected Sepsis SIRS Temperature: Pulse: 76 Respiratory Rate: 20 Laboratory Tests 08/18/21 20:10: White Blood Count 18.5H Blood Pressure 159 /86 Mean: 110 Laboratory Tests 08/18/21 20:10: Creatinine 1.00, INR Comment 1.8H, Platelet Count 453H, Total Bilirubin 0.7 Results/Orders Lab Results Laboratory Tests Test 08/18/21 20:10 Range/Units White Blood Count 18.5 H 4.3-11.0 10^3/uL Red Blood Count 5.31 4.30-5.52 10^6/uL Hemoglobin 16.8 13.3-17.7 g/dL Hematocrit 48 40-54 % Mean Corpuscular Volume 90 80-99 fL Mean Corpuscular Hemoglobin 32 25-34 pg Mean Corpuscular Hemoglobin Concent 35 32-36 g/dL Red Cell Distribution Width 12.5 10.0-14.5 % Platelet Count 453 H 130-400 10^3/uL Mean Platelet Volume 9.4 9.0-12.2 fL Immature Granulocyte % (Auto) 0 % Neutrophils (%) (Auto) 57 42-75 % Lymphocytes (%) (Auto) 34 12-44 % Monocytes (%) (Auto) 5 0-12 % Eosinophils (%) (Auto) 3 0-10 % Basophils (%) (Auto) 1 0-10 % Neutrophils # (Auto) 10.6 H 1.8-7.8 10^3/uL Lymphocytes # (Auto) 6.3 H 1.0-4.0 10^3/uL Monocytes # (Auto) 0.9 0.0-1.0 10^3/uL Eosinophils # (Auto) 0.5 H 0.0-0.3 10^3/uL Basophils # (Auto) 0.1 0.0-0.1 10^3/uL Immature Granulocyte # (Auto) 0.1 0.0-0.1 10^3/uL Neutrophils % (Manual) 64 % Lymphocytes % (Manual) 31 % Monocytes % (Manual) 3 % Eosinophils % (Manual) 2 % Basophils % (Manual) 0 % Band Neutrophils 0 % Prothrombin Time 21.0 H 12.2-14.7 SEC INR Comment 1.8 H 0.8-1.4 Activated Partial Thromboplast Time 38 H 24-35 SEC Sodium Level 143 135-145 MMOL/L Potassium Level 3.4 L 3.6-5.0 MMOL/L Chloride Level 104 98-107 MMOL/L Carbon Dioxide Level 26 21-32 MMOL/L Anion Gap 13 5-14 MMOL/L Blood Urea Nitrogen 7 7-18 MG/DL Creatinine 1.00 0.60-1.30 MG/DL Estimat Glomerular Filtration Rate 98 BUN/Creatinine Ratio 7 Glucose Level 154 H 70-105 MG/DL Calcium Level 10.1 8.5-10.1 MG/DL Corrected Calcium 9.7 8.5-10.1 MG/DL Magnesium Level 1.9 1.6-2.4 MG/DL Total Bilirubin 0.7 0.1-1.0 MG/DL Aspartate Amino Transf (AST/SGOT) 19 5-34 U/L Alanine Aminotransferase (ALT/SGPT) 22 0-55 U/L Alkaline Phosphatase 129 40-136 U/L Myoglobin < 21.0 10.0-92.0 NG/ML Troponin I < 0.30 <0.30 NG/ML Pro-B-Type Natriuretic Peptide 227.2 H <75.0 PG/ML Total Protein 8.0 6.4-8.2 GM/DL Albumin 4.5 3.2-4.5 GM/DL Lipase 106 H 8-78 U/L My Orders Orders - TESSA DE OLIVEIRA MD Cbc With Automated Diff (08/18/21 20:09) Magnesium (08/18/21 20:09) Ekg Tracing (08/18/21 20:09) Comprehensive Metabolic Panel (08/18/21 20:09) Myoglobin Serum (08/18/21 20:09) Protime With Inr (08/18/21 20:09) Partial Thromboplastin Time (08/18/21 20:09) O2 (08/18/21 20:09) Monitor-Rhythm Ecg Trace Only (08/18/21 20:09) Ed Iv/Invasive Line Start (08/18/21 20:09) Lipase (08/18/21 20:09) Troponin I Fs (08/18/21 20:09) Probnp Fs (08/18/21 20:09) Hydromorphone Injection (Dilaudid Inject (08/18/21 20:21) Ondansetron Injection (Zofran Injectio (08/18/21 20:21) Ketorolac Injection (Toradol Injection) (08/18/21 20:21) Ns Iv 1000 Ml (Sodium Chloride 0.9%) (08/18/21 20:21) Ct Chest/Abdomen/Pelvis W (08/18/21 20:21) Iohexol Injection (Omnipaque 350 Mg/Ml 1 (08/18/21 20:30) Received Contrast (Hold Metformin- Contr (08/18/21 20:30) Sodium Chloride Flush (Catheter Flush Sy (08/18/21 20:30) Ns (Ivpb) (Sodium Chloride 0.9% Ivpb Bag (08/18/21 20:30) Manual Differential (08/18/21 20:10) Medications Given in ED Current Medications Medications Dose Ordered Sig/Rasheed Route Start Time Stop Time Status Last Admin Dose Admin Iohexol 100 ml ONCE ONCE IV 08/18/21 20:30 08/18/21 21:27 DC 08/18/21 20:47 100 ML Sodium Chloride 10 ml NEEDED PRN IV 08/18/21 20:30 08/18/21 22:50 DC 08/18/21 20:47 10 ML Sodium Chloride 100 ml ONCE ONCE IV 08/18/21 20:30 08/18/21 21:27 DC 08/18/21 20:47 80 ML Vital Signs/I&O 08/18/21 08/18/21 20:08 22:49 Temp 36.7 37.0 Pulse 76 79 Resp 20 18 B/P (MAP) 159/86 (110) 164/89 Pulse Ox 100 99 O2 Delivery Room Air Room Air Capillary Refill : Less Than 3 Seconds Blood Pressure Mean: 110 Progress Note #1: Progress Note Obtain basic labs and urine. Order CT scan of his chest abdomen pelvis to evaluate for possible free air, hemothorax, pneumothorax, intestinal perforation, abscess after cholecystectomy, intra-abdominal hemorrhage. Try Dilaudid 1 mg IV with Toradol and Zofran to try and help with pain and help prevent nausea and vomiting. Give normal saline 1 L IV fluid bolus for hydration. Electrocardiogram does not show acute significant abnormality or ischemia. Progress Note #2: Progress Note CBC is stable with chronic elevation of his white blood cell count to 18.5. His hemoglobin appears improved from previous labs. He has no acute significant normality on his chemistry panel to indicate a reason for his pain. His INR is elevated to 1.8. Patient is currently taking blood thinners for recent superior mesenteric thrombus. Progress Note #3: Progress Note CT scan does not show anything acute in the chest. His abdomen and pelvis shows that he has had recent cholecystectomy and there is a small amount of free air consistent with the recent surgery. He also has some inflammation around his pancreatic cyst and mild inflammation of the descending part of the duodenum. There is no bowel obstruction, ascites, intra-abdominal hemorrhage, viscus perforation. Patient states that his pain in his chest is essentially gone. He still has some abdominal wall pain. Reassured that there was no definite fluid collection or active bleeding in the chest, abdomen, abdominal wall. Counseled on follow-up and return precautions. ECG Initial ECG Impression Date: Aug 18, 2021 Initial ECG Impression Time: 20:08 Initial ECG Rate: 94 Initial ECG Rhythm: Normal Sinus Initial ECG Comparisson: Unchanged Comment Sinus rhythm with heart rate of 94 bpm and a short NM interval of 88 ms. Borderline right axis deviation. No acute ST elevation. QT interval 361 ms with a QTc interval 413 ms. Overall appears similar to prior tracings in the system. Diagnostic Imaging Diagonstic Imaging: CT Plain Films/CT/US/NM/MRI: chest, abdomen, pelvis Comments NAME: LISETH LOOMIS [facility] REC#: [id number] PT STATUS: REG ER : 1980 PHYSICIAN: TESSA DE OLIVEIRA MD ADMIT DATE: 08/18/21/ER FS Signed Date of Exam:08/18/21 CT CHEST/ABDOMEN/PELVIS W INDICATION: Right-sided chest pain, right-sided abdominal pain, recent laparoscopic cholecystectomy. TECHNIQUE: Multiple contiguous axial images were obtained through the chest, abdomen, and pelvis after the administration of intravenous contrast. Auto Exposure Controls were utilized during the CT exam to meet ALARA standards for radiation dose reduction. CT abdomen and pelvis is compared to 07/29/2021. There is no prior chest CT for comparison. CT CHEST FINDINGS: There are no enlarged mediastinal or hilar nodes. There are no enlarged axillary nodes. There is no pleural or pericardial fluid. Lung parenchymal windows show no focal lesion. CT ABDOMEN/PELVIS FINDINGS: A small amount of free air is seen which can be explained by recent surgery. In the liver, there are new areas of moderate size hypodensity in wedge-shaped configuration in the superior portions of the right lobe of the liver, not present on the prior study, this may represent areas of hyperperfusion. There is no discrete abscess. Patient has had cholecystectomy since the prior study. The spleen, adrenals and right kidney appear normal. There is a small cyst in the left kidney The pancreas shows a cystic lesion of the pancreatic head measuring about 3.9 cm, this does not appear to be definitely changed compared to the prior study. There is some edema about the pancreatic head and about the adjacent portion of the duodenum, compatible with pancreatitis with secondary duodenitis. There is thickening of the descending portion of the duodenum. There is no retroperitoneal adenopathy. There is no ascites. There is no overt bowel obstruction. The appendix appears normal. There is a small left internal hernia containing fat as well as a small amount of air. IMPRESSION: 1. CT chest was unremarkable. 2. CT abdomen and pelvis demonstrate findings of with pancreatitis of the pancreatic head with a cystic lesion of the pancreatic head compatible with pseudocyst, unchanged compared to 07/29/2021. There does appear to be increased edema about the pancreatic head. There is prominent thickening of the descending duodenum compatible with secondary duodenitis. There is no discrete abnormal fluid collection seen elsewhere. There are areas of low-density in the superior portion of the liver in the right lobe, which may represent hypoperfusion. Dictated by: Dictated on workstation # [id number] Dict: 08/18/212102 Trans: 08/18/212131 PJE [id number] Interpreted by: JOSHUA LOGAN MD Electronically signed by: JOSHUA LOGAN MD 08/18/212131 Reviewed: Reviewed by Me Departure Impression Primary Impression: Right-sided chest pain Additional Impressions: Abdominal wall pain in right flank Status post laparoscopic cholecystectomy Abdominal wall strain Qualified Codes: S39.011A - Strain of muscle, fascia and tendon of abdomen, initial encounter Disposition: 01 HOME, SELF-CARE Condition: Stable Departure-Patient Inst. Decision time for Depature: 22:34 Referrals: PADMINI CORONADO APRN (PCP) Primary Care Physician DAVID GERBER MD (Family) Primary Care Physician Patient Instructions: Abdominal Muscle Strain ED, Chest Pain, Adult ED, Abdominal Pain, Adult ED Add. Discharge Instructions: Stable hydrated and drink plenty of fluids. Try the pain medicine that you have at home for severe pain. Follow-up with the clinic for continued concerns. If your symptoms get more severe, fever over 101 Fahrenheit, uncontrolled nausea and vomiting return for evaluation All discharge instructions reviewed with patient and/or family. Voiced understanding. TESSA DE OLIVEIRA MD Aug 18, 2021 20:42
[2021-08-18 20:47] LABS: BAND NEUTROPHILS 0 %; BASOPHILS % (MANUAL) 0 %; EOSINOPHILS % (MANUAL) 2 %; LYMPHOCYTES % (MANUAL) 31 %; MONOCYTES % (MANUAL) 3 %; NEUTROPHILS % (MANUAL) 64 %
[2021-08-18 20:56] LABS: ALANINE AMINOTRANSFERASE 22 U/L (0-55); ALKALINE PHOSPHATASE 129 U/L (40-136); BILIRUBIN,TOTAL 0.7 MG/DL (0.1-1.0); BUN/CREATININE RATIO 7; CALCIUM 10.1 MG/DL (8.5-10.1); CARBON DIOXIDE 26 MMOL/L (21-32); CHLORIDE 104 MMOL/L (98-107); GFR ESTIMATED 98; GLUCOSE 154 MG/DL (70-105); MAGNESIUM 1.9 MG/DL (1.6-2.4); POTASSIUM 3.4 MMOL/L (3.6-5.0); SODIUM 143 MMOL/L (135-145)
[2021-08-18 20:57] LABS: ALBUMIN 4.5 GM/DL (3.2-4.5); LIPASE 106 U/L (8-78)
--- NOTE | 2021-08-18 21:30 | Diagnostic Imaging Report ---
INDICATION: Right-sided chest pain, right-sided abdominal pain, recent laparoscopic cholecystectomy. TECHNIQUE: Multiple contiguous axial images were obtained through the chest, abdomen, and pelvis after the administration of intravenous contrast. Auto Exposure Controls were utilized during the CT exam to meet ALARA standards for radiation dose reduction. CT abdomen and pelvis is compared to 07/29/2021. There is no prior chest CT for comparison. CT CHEST FINDINGS: There are no enlarged mediastinal or hilar nodes. There are no enlarged axillary nodes. There is no pleural or pericardial fluid. Lung parenchymal windows show no focal lesion. CT ABDOMEN/PELVIS FINDINGS: A small amount of free air is seen which can be explained by recent surgery. In the liver, there are new areas of moderate size hypodensity in wedge-shaped configuration in the superior portions of the right lobe of the liver, not present on the prior study, this may represent areas of hyperperfusion. There is no discrete abscess. Patient has had cholecystectomy since the prior study. The spleen, adrenals and right kidney appear normal. There is a small cyst in the left kidney The pancreas shows a cystic lesion of the pancreatic head measuring about 3.9 cm, this does not appear to be definitely changed compared to the prior study. There is some edema about the pancreatic head and about the adjacent portion of the duodenum, compatible with pancreatitis with secondary duodenitis. There is thickening of the descending portion of the duodenum. There is no retroperitoneal adenopathy. There is no ascites. There is no overt bowel obstruction. The appendix appears normal. There is a small left internal hernia containing fat as well as a small amount of air. IMPRESSION: 1. CT chest was unremarkable. 2. CT abdomen and pelvis demonstrate findings of with pancreatitis of the pancreatic head with a cystic lesion of the pancreatic head compatible with pseudocyst, unchanged compared to 07/29/2021. There does appear to be increased edema about the pancreatic head. There is prominent thickening of the descending duodenum compatible with secondary duodenitis. There is no discrete abnormal fluid collection seen elsewhere. There are areas of low-density in the superior portion of the liver in the right lobe, which may represent hypoperfusion. Dictated by: Dictated on workstation # [id number]
[2021-08-18 22:49] VITALS: BP 164/89
== END 2021-08-18 22:50 | disposition home or self-care (01) ==
LOC: EDUNIT# 20:04 → ER FS 20:06
DX: S39.011A Strain of muscle, fascia and tendon of abdomen, initial encounter (principal); K91.5 Postcholecystectomy syndrome; R79.1 Abnormal coagulation profile; D72.829 Elevated white blood cell count, unspecified; Z90.49 Acquired absence of other specified parts of digestive tract; Z86.718 Personal history of other venous thrombosis and embolism; Z79.01 Long term (current) use of anticoagulants; Z28.310 Unvaccinated for COVID-19; X58.XXXA Exposure to other specified factors, initial encounter
CPT/HCPCS: 36415; 71260; 74177; 80053; 83690; 83735; 83874; 83880; 84484; 85007; 85027; 85610; 85730; 93005; 93041; Q9967

== ENCOUNTER → 2021-08-20 | Outpatient (CLI) | payer SELFPAY ==
[~2021-08-20] MED LIST changes: +SUCR1TAB36 PO
--- NOTE | 2021-08-20 15:01 | Diagnostic Imaging Report ---
EXAMINATION: CT abdomen and pelvis without contrast. TECHNIQUE: Multiple contiguous axial images were obtained through the abdomen and pelvis without the use of intravenous contrast. All CT scans use one or more of the following dose optimizing techniques: automated exposure control, MA and/or KvP adjustment based on patient size and exam type or iterative reconstruction. HISTORY: FLANK PAIN COMPARISON: 08/18/2021. FINDINGS: Lung bases: The lung bases are clear. Solid organs: Subtle areas of hypoattenuation are seen within the right hepatic lobe which correspond to the abnormal enhancement pattern seen on prior CT of 08/18/2021. The gallbladder is surgically absent. There is no biliary ductal dilation. There is a persistent cystic lesion within the pancreatic head measuring up to 3.8 cm. Spleen is normal. Adrenal glands are normal. There is no visualized renal calculus or hydronephrosis. There are bilateral renal cysts, a few of which are mildly hyperdense and may be hemorrhagic or proteinaceous cysts. Bowel: The stomach and small bowel are normal without obstruction. There is wall thickening of the right hemicolon. The appendix is normal. Peritoneum: Trace free fluid in the pelvis. No free air. No suspicious lymphadenopathy. Vasculature: Normal without aneurysm. Musculoskeletal: No suspicious osseous lesion or compression fracture. Pelvis: The prostate gland is normal. Mild bladder wall thickening. IMPRESSION: 1. Cystic lesion within the pancreas is unchanged from prior exam. Persistent inflammatory stranding within the right upper quadrant near the head of the pancreas. Findings remain compatible with history of pancreatitis. 2. No visualized renal calculus or hydronephrosis. 3. Wall thickening of the right hemicolon which can be seen with infectious or inflammatory colitis. 4. Mild bladder wall thickening. Recommend correlation with urinalysis. Dictated by: Dictated on workstation # [id number]
== END ==
LOC: RAD FS 14:16
PROVIDERS: ATTEND Nurse Practitioner Family
DX: K86.9 Disease of pancreas, unspecified (principal); K63.9 Disease of intestine, unspecified; N32.9 Bladder disorder, unspecified
CPT/HCPCS: 74176

== ENCOUNTER 2021-08-24 09:02 | Emergency (ER) | payer SELFPAY ==
[~2021-08-24] VITALS: Ht 172.7 cm; Wt 53.5 kg
[~2021-08-24 09:02] MED LIST changes: -SUCR1TAB36 PO
[2021-08-24] MEDS ORDERED: LACTATED RINGERS 1,000 ML IV STA (09:14)
[2021-08-24] MEDS ORDERED: fentaNYL INJ 100 MCG/2 ML AMP IVP STA (09:14)
--- NOTE | 2021-08-24 09:14 | ED Abdominal Pain ---
General Stated Complaint: ABD/BACK PAIN History of Present Illness Date Seen by Provider: Aug 24, 2021 Time Seen by Provider: 09:09 Initial Comments 40-year-old male presents with abdominal pain that radiates to his back. Patient has a history of chronic pancreatitis from prior alcohol abuse. Patient reports that he is been sober for 52 days. That about a week and a half ago he had his gallbladder taken out at [facility] and had a pancreatic duct stent placed. That 4 days ago he had an x-ray to ensure that the stent came out properly and at that time they thought they saw kidney stones that had a CT. The CT did not show a kidney stone or any other acute abnormalities he does have a pancreatic pseudocyst. Patient reports that the pain came back today and has gotten significantly worse. He reports that is very similar to his prior pancreatic flareups. He has some mild nausea but main symptom is just severe pain. Allergies and Home Medications Allergies Uncoded Allergies: pcn (Allergy, Unknown, 01/29/21) Patient Home Medication List Home Medication List Reviewed: Yes Hydrocodone/Acetaminophen (Hydrocodone-Acetamin 5-325 mg) 1 Each Tablet, 1 TAB PO Q4H PRN for PAIN-MODERATE (5-7) Prescribed by: ORLANDO CARBALLO on 01/29/21 1635 Ondansetron (Ondansetron Odt) 4 Mg Tab.rapdis, 4 MG PO Q6H PRN for NAUSEA/VOMITING Prescribed by: ORLANDO CARBALLO on 01/29/21 1635 Oxycodone HCl (Oxycodone HCl) 5 Mg Tablet, 5 MG PO Q6H PRN for PAIN-SEVERE (8- 10) Prescribed by: FRANCISCO JAVIER CHIRINOS on 07/29/21 1458 Sucralfate (Carafate) 1 Gram Tablet, 1 GM PO ACHS Prescribed by: ORLANDO CARBALLO on 08/24/21 1120 Review of Systems Review of Systems Constitutional: No chills, No fever Respiratory: Denies Cough, Denies Shortness of Air Cardiovascular: Denies Chest Pain, Denies Lightheadedness Gastrointestinal: Abdominal Pain; Denies Diarrhea; Nausea; Denies Vomiting Genitourinary: No Symptoms Reported Musculoskeletal: no symptoms reported Skin: no symptoms reported Psychiatric/Neurological: No Symptoms Reported Past Hytgntv-[id number]-Geaiyd Hx Immunizations Up To Date First/Initial COVID19 Vaccinat: Not currently Second COVID19 Vaccination Aris: Not currently Third COVID19 Vaccination Date: Not currently Past Medical History Surgery/Hospitalization HX: myocarditis; [place], autoimmune, pancreatitis, pancreatic pseudocyst, 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 oz. kg; 20.00 BMI Method: General Appearance: WD/WN, no apparent distress Respiratory: lungs clear, normal breath sounds Cardiovascular: normal peripheral pulses, regular rate, rhythm, no edema Gastrointestinal: soft, guarding, tenderness (Diffuse but greatest in the epigastric region) Extremities: normal range of motion, non-tender Neurologic/Psychiatric: alert, normal mood/affect, oriented x 3 Skin: normal color, warm/dry Progress/Results/Core Measures Results/Orders Lab Results Laboratory Tests Test 08/24/21 09:12 08/24/21 10:32 Range/Units White Blood Count 18.9 H 4.3-11.0 10^3/uL Red Blood Count 5.12 4.30-5.52 10^6/uL Hemoglobin 16.2 13.3-17.7 g/dL Hematocrit 46 40-54 % Mean Corpuscular Volume 90 80-99 fL Mean Corpuscular Hemoglobin 32 25-34 pg Mean Corpuscular Hemoglobin Concent 35 32-36 g/dL Red Cell Distribution Width 12.5 10.0-14.5 % Platelet Count 412 H 130-400 10^3/uL Mean Platelet Volume 9.4 9.0-12.2 fL Immature Granulocyte % (Auto) 0 % Neutrophils (%) (Auto) 64 42-75 % Lymphocytes (%) (Auto) 26 12-44 % Monocytes (%) (Auto) 6 0-12 % Eosinophils (%) (Auto) 3 0-10 % Basophils (%) (Auto) 1 0-10 % Neutrophils # (Auto) 12.1 H 1.8-7.8 X 10^3 Lymphocytes # (Auto) 5.1 H 1.0-4.0 X 10^3 Monocytes # (Auto) 1.1 H 0.0-1.0 X 10^3 Eosinophils # (Auto) 0.5 H 0.0-0.3 10^3/uL Basophils # (Auto) 0.1 0.0-0.1 10^3/uL Immature Granulocyte # (Auto) 0.1 0.0-0.1 10^3/uL Neutrophils % (Manual) 67 % Lymphocytes % (Manual) 23 % Monocytes % (Manual) 4 % Eosinophils % (Manual) 4 % Basophils % (Manual) 2 % Band Neutrophils 0 % Sodium Level 140 135-145 MMOL/L Potassium Level 4.2 3.6-5.0 MMOL/L Chloride Level 102 98-107 MMOL/L Carbon Dioxide Level 25 21-32 MMOL/L Anion Gap 13 5-14 MMOL/L Blood Urea Nitrogen 6 L 7-18 MG/DL Creatinine 0.94 0.60-1.30 MG/DL Estimat Glomerular Filtration Rate 106 BUN/Creatinine Ratio 6 Glucose Level 114 H 70-105 MG/DL Calcium Level 9.7 8.5-10.1 MG/DL Corrected Calcium 9.5 8.5-10.1 MG/DL Magnesium Level 1.8 1.6-2.4 MG/DL Total Bilirubin 0.4 0.1-1.0 MG/DL Aspartate Amino Transf (AST/SGOT) 13 5-34 U/L Alanine Aminotransferase (ALT/SGPT) 16 0-55 U/L Alkaline Phosphatase 134 40-136 U/L C-Reactive Protein 2.51 H <0.50 MG/DL Total Protein 7.7 6.4-8.2 GM/DL Albumin 4.2 3.2-4.5 GM/DL Amylase Level 71 25-125 U/L Lipase 78 8-78 U/L Urine Color YELLOW Urine Clarity CLEAR Urine pH 5.5 5-9 Urine Specific [place] 1.010 L 1.016-1.022 Urine Protein NEGATIVE NEGATIVE Urine Glucose (UA) NEGATIVE NEGATIVE Urine Ketones NEGATIVE NEGATIVE Urine Nitrite NEGATIVE NEGATIVE Urine Bilirubin NEGATIVE NEGATIVE Urine Urobilinogen 0.2 < = 1.0 MG/DL Urine Leukocyte Esterase NEGATIVE NEGATIVE Urine RBC (Auto) NEGATIVE NEGATIVE Urine RBC NONE /HPF Urine WBC RARE /HPF Urine Squamous Epithelial Cells NONE /HPF Urine Crystals NONE /LPF Urine Bacteria NEGATIVE /HPF Urine Casts NONE /LPF Urine Mucus NEGATIVE /LPF Urine Culture Indicated NO My Orders Orders - CARBALLO,ORLANDO L DO Amylase (7/5/22 09:14) Cbc With Automated Diff (08/24/21 09:14) Comprehensive Metabolic Panel (08/24/21 09:14) Lipase (08/24/21 09:14) Magnesium (08/24/21 09:14) Crp Fs (08/24/21 09:14) Ondansetron Injection (Zofran Injectio (08/24/21 09:15) Lactated Ringers (Lr 1000 Ml Iv Solution (08/24/21 09:14) Fentanyl Inj (Sublimaze Injection) (08/24/21 09:14) Manual Differential (08/24/21 09:12) Morphine Injection (Morphine Injection (08/24/21 09:45) Ua Culture If Indicated (08/24/21 10:25) Hyoscyamine Sl Tablet (Levsin Sl Tablet) (08/24/21 10:30) Ketorolac Injection (Toradol Injection) (08/24/21 10:27) Pantoprazole Injection (Protonix Injecti (08/24/21 10:30) Acute Abd Series (08/24/21 10:30) Lidocaine 2% Viscous 15 Ml (Xylocaine Vi (08/24/21 11:00) Antacid Suspension (Mylanta Suspension (08/24/21 11:00) Sucralfate Tablet (Carafate Tablet) (08/24/21 11:00) Medications Given in ED Current Medications Medications Dose Ordered Sig/Rasheed Route Start Time Stop Time Status Last Admin Dose Admin Al Hydrox/Mg Hydrox/Simethicone 30 ml ONCE ONCE PO 08/24/21 11:00 08/24/21 11:01 DC 08/24/21 11:11 30 ML Hyoscyamine Sulfate 0.125 mg ONCE ONCE SL 08/24/21 10:30 08/24/21 10:31 DC 08/24/21 10:35 0.125 MG Lidocaine HCl 15 ml ONCE ONCE PO 08/24/21 11:00 08/24/21 11:01 DC 08/24/21 11:11 15 ML Morphine Sulfate 4 mg ONCE ONCE IVP 08/24/21 09:45 08/24/21 09:46 DC 08/24/21 09:43 4 MG Ondansetron HCl 4 mg ONCE ONCE IVP 7/5/22 09:15 08/24/21 09:16 DC 08/24/21 09:23 4 MG Pantoprazole 40 mg ONCE ONCE IV 08/24/21 10:30 08/24/21 10:31 DC 08/24/21 10:35 40 MG Sucralfate 1 gm ONCE ONCE PO 08/24/21 11:00 08/24/21 11:01 DC 08/24/21 11:11 1 GM Vital Signs/I&O 08/24/21 09:07 Temp 36.2 Pulse 102 Resp 19 B/P (MAP) 170/100 (123) O2 Delivery Room Air Progress Progress Note : Progress Note Patient symptoms are much improved following the Levsin and Protonix GI cocktail and Carafate. He did not have much improvement from the narcotics. I suspect that he has an underlying gastritis. I will prescribe him Carafate. I recommend he start Pepcid and add proton pump inhibitor. Patient should follow- up with his primary care provider in the next week for further outpatient evaluation and management as needed. Patient stable and discharged home. Patient's labs show improvement from his previous visits. Patient had negative CTs on 08/18/2021 and 08/20/2021. Patient's white count appears to be near her baseline white count with his lipase and other labs showing improvement. Diagnostic Imaging Diagonstic Imaging: Xray Plain Films/CT/US/NM/MRI: abdomen, pelvis Comments Date of Exam:08/24/21 ACUTE ABD SERIES EXAMINATION: Abdominal series and chest radiograph. HISTORY: Abd pain. COMPARISON: 07/06/2021. FINDINGS: Heart size and pulmonary vasculature are normal. The lungs are clear without consolidation, pleural effusion, or pneumothorax. The osseous structures are intact. There is moderate amount of gas and stool throughout the colon. Nonobstructive bowel gas pattern. Stable 0.7 cm calculus within the medial right kidney. Right upper quadrant cholecystectomy clips are present. The osseous structures are intact. IMPRESSION: No acute abnormality in the chest or abdomen. Departure Impression Primary Impression: Gastritis and duodenitis Disposition: HOME, SELF-CARE Condition: Stable Departure-Patient Inst. Referrals: PADMINI CORONADO APRN (PCP) Primary Care Physician DAVID GERBER MD (Family) Primary Care Physician Patient Instructions: Gastritis (DC) Add. Discharge Instructions: pepcid 20 mg twice daily nexium, prilosec or prevacid- use daily as directed on package. follow up with primary care provider in 1 week Scripts Sucralfate (Carafate) 1 Gram Tablet 1 GM PO ACH, #100 TAB Prov: ORLANDO CARBALLO DO 08/24/21 ORLANDO CARBALLO DO Aug 24, 2021 09:14
[2021-08-24] MEDS ORDERED: ONDANSETRON 4 MG/2 ML (SDV) Z0FRAN IVP ONE (09:15)
[2021-08-24 09:26] LABS: HEMATOCRIT 46 % (40-54); HEMOGLOBIN 16.2 g/dL (13.3-17.7); MEAN CORPUSCULAR HEMOGLOBIN 32 pg (25-34); MEAN CORPUSCULAR HGB CONC 35 g/dL (32-36); MEAN CORPUSCULAR VOLUME 90 fL (80-99); MEAN PLATELET VOLUME 9.4 fL (9.0-12.2); PLATELET COUNT 412 10^3/uL (130-400); WHITE BLOOD COUNT 18.9 10^3/uL (4.3-11.0)
[2021-08-24 09:27] LABS: BASOPHILS # (AUTO) 0.1 10^3/uL (0.0-0.1); BASOPHILS % (AUTO) 1 % (0-10); EOSINOPHILS # (AUTO) 0.5 10^3/uL (0.0-0.3); EOSINOPHILS % (AUTO) 3 % (0-10); LYMPHOCYTES # (AUTO) 5.1 X 10^3 (1.0-4.0); LYMPHOCYTES % (AUTO) 26 % (12-44); MONOCYTES # (AUTO) 1.1 X 10^3 (0.0-1.0); MONOCYTES % (AUTO) 6 % (0-12); NEUTROPHILS # (AUTO) 12.1 X 10^3 (1.8-7.8); NEUTROPHILS % (AUTO) 64 % (42-75)
[2021-08-24] MEDS ORDERED: morphine INJ 10 MG/ML 1ML (SYR OR VIAL) IVP ONE (09:45)
[2021-08-24 10:05] LABS: BAND NEUTROPHILS 0 %; BASOPHILS % (MANUAL) 2 %; EOSINOPHILS % (MANUAL) 4 %; LYMPHOCYTES % (MANUAL) 23 %; MONOCYTES % (MANUAL) 4 %; NEUTROPHILS % (MANUAL) 67 %
[2021-08-24 10:20] LABS: POTASSIUM 4.2 MMOL/L (3.6-5.0)
[2021-08-24 10:22] LABS: BILIRUBIN,TOTAL 0.4 MG/DL (0.1-1.0); CALCIUM 9.7 MG/DL (8.5-10.1); CREATININE SERUM 0.94 MG/DL (0.60-1.30); MAGNESIUM 1.8 MG/DL (1.6-2.4); TOTAL PROTEIN 7.7 GM/DL (6.4-8.2)
[2021-08-24 10:23] LABS: ALBUMIN 4.2 GM/DL (3.2-4.5)
[2021-08-24] MEDS ORDERED: KETOROLAC 30 MG/ML VIAL IVP STA (10:27)
[2021-08-24] MEDS ORDERED: PANTOPRAZOLE 40 MG (PROTONIX) VIAL IV ONE (10:30)
[2021-08-24] MEDS ORDERED: HYOSCYAMINE 0.125 MG (LEVSIN) TAB SL ONE (10:30)
--- NOTE | 2021-08-24 10:47 | Diagnostic Imaging Report ---
EXAMINATION: Abdominal series and chest radiograph. HISTORY: Abd pain. COMPARISON: 07/06/2021. FINDINGS: Heart size and pulmonary vasculature are normal. The lungs are clear without consolidation, pleural effusion, or pneumothorax. The osseous structures are intact. There is moderate amount of gas and stool throughout the colon. Nonobstructive bowel gas pattern. Stable 0.7 cm calculus within the medial right kidney. Right upper quadrant cholecystectomy clips are present. The osseous structures are intact. IMPRESSION: No acute abnormality in the chest or abdomen. Dictated by: Dictated on workstation # [id number]
[2021-08-24 10:48] LABS: CLARITY,URINE CLEAR; COLOR,URINE YELLOW; PH,URINE 5.5 (5-9)
[2021-08-24 10:49] LABS: BACTERIA,URINE NEGATIVE /HPF; BILIRUBIN,URINE NEGATIVE (NEGATIVE); GLUCOSE, URINE (UA) NEGATIVE (NEGATIVE); KETONES,URINE NEGATIVE (NEGATIVE); LEUKOCYTE ESTERASE ,URINE NEGATIVE (NEGATIVE); NITRITE,URINE NEGATIVE (NEGATIVE); PROTEIN,URINE NEGATIVE (NEGATIVE); WBC,URINE RARE /HPF
[2021-08-24] MEDS ORDERED: ANTACID SUSP 30 ML UDC (MYLANTA) PO ONE (11:00)
[2021-08-24] MEDS ORDERED: LIDOCAINE 2% VISCOUS 15 ML UDC PO ONE (11:00)
[2021-08-24] MEDS ORDERED: SUCRALFATE 1 GM (CARAFATE) TAB PO ONE (11:00)
[2021-08-24] MEDS ORDERED: SUCR1TAB36 PO (11:20)
[2021-08-24 11:32] VITALS: BP 127/65
== END 2021-08-24 11:33 | disposition home or self-care (01) ==
LOC: EDUNIT# 09:02 → ER FS 09:03
DX: K29.90 Gastroduodenitis, unspecified, without bleeding (principal); Z28.310 Unvaccinated for COVID-19
CPT/HCPCS: 36415; 74022; 80053; 81000; 82150; 83690; 83735; 85007; 85027; 86141

== ENCOUNTER 2021-09-16 14:53 | Emergency (ER) | payer SELFPAY ==
[~2021-09-16] VITALS: Ht 172.7 cm; Wt 51.7 kg
[~2021-09-16 14:53] MED LIST changes: +SUCR1TAB36 PO
[2021-09-16] MEDS ORDERED: morphine INJ 10 MG/ML 1ML (SYR OR VIAL) IVP STA (15:20)
[2021-09-16] MEDS ORDERED: HOLD METFORMIN - RECEIVED CONTRAST 20 ML VIAL IV SCH (15:30)
[2021-09-16] MEDS ORDERED: NS IV 1000 ML 1,000 ML IV SCH (15:30)
[2021-09-16] MEDS ORDERED: CATHETER FLUSH 10 ML SYR IV PRN (15:30)
[2021-09-16] MEDS ORDERED: IOHEXOL 350 MG/ML 100 ML (OMNIPAQUE 350) VIAL IV ONE (15:30)
[2021-09-16] MEDS ORDERED: ONDANSETRON 4 MG/2 ML (SDV) Z0FRAN IVP ONE (15:30)
[2021-09-16] MEDS ORDERED: NS 100 ML (IVPB) BAG IV ONE (15:30)
[2021-09-16 15:42] LABS: BILIRUBIN,TOTAL 0.3 MG/DL (0.1-1.0); CALCIUM 9.9 MG/DL (8.5-10.1); CREATININE SERUM 0.85 MG/DL (0.60-1.30); POTASSIUM 3.6 MMOL/L (3.6-5.0); TOTAL PROTEIN 7.3 GM/DL (6.4-8.2)
[2021-09-16 15:43] LABS: ALBUMIN 4.3 GM/DL (3.2-4.5)
[2021-09-16 16:06] LABS: BASOPHILS # (AUTO) 0.1 10^3/uL (0.0-0.1); BASOPHILS % (AUTO) 1 % (0-10); EOSINOPHILS # (AUTO) 0.7 10^3/uL (0.0-0.3); EOSINOPHILS % (AUTO) 4 % (0-10); HEMATOCRIT 44 % (40-54); HEMOGLOBIN 15.3 g/dL (13.3-17.7); LYMPHOCYTES # (AUTO) 6.2 10^3/uL (1.0-4.0); LYMPHOCYTES % (AUTO) 34 % (12-44); MEAN CORPUSCULAR HEMOGLOBIN 31 pg (25-34); MEAN CORPUSCULAR HGB CONC 35 g/dL (32-36); MEAN CORPUSCULAR VOLUME 89 fL (80-99); MEAN PLATELET VOLUME 9.9 fL (9.0-12.2); MONOCYTES % (AUTO) 5 % (0-12); NEUTROPHILS # (AUTO) 10.1 10^3/uL (1.8-7.8); NEUTROPHILS % (AUTO) 56 % (42-75); PLATELET COUNT 394 10^3/uL (130-400); WHITE BLOOD COUNT 18.1 10^3/uL (4.3-11.0)
--- NOTE | 2021-09-16 16:19 | Diagnostic Imaging Report ---
PROCEDURE: CT abdomen and pelvis with contrast. TECHNIQUE: Multiple contiguous axial images were obtained through the abdomen and pelvis after administration of intravenous contrast. Auto Exposure Controls were utilized during the CT exam to meet ALARA standards for radiation dose reduction. All CT scans use one or more of the following dose optimizing techniques: Automated exposure control, MA and/or KvP adjustment based on patient size and exam type or iterative reconstruction. INDICATION: Epigastric abdominal pain and nausea. History of pancreatitis. COMPARISON: 08/20/2021. FINDINGS: The lung bases are clear. The heart is normal in size. There is no pericardial effusion. The liver demonstrates two wedge-shaped areas of decreased enhancement in the superior right liver, both of which appear similar to 08/18/2021. No new liver lesion is seen. There is a hypodensity in the left lobe, which likely represents a cyst and appears stable. The spleen appears normal. Cholecystectomy clips are noted. There is a cystic lesion at the pancreatic head, which measures 3.2 x 3.1 cm in size. This is stable since the prior study. There is peripancreatic edema about the pancreatic head, as well as wall thickening along the proximal duodenum. There is no ductal dilatation of the pancreas, and no other peripancreatic edema is seen. The adrenal glands appear normal. The kidneys demonstrate no hydronephrosis or enhancing lesions. There are small simple-appearing cysts in the left kidney. The appendix is normal. The bowel loops are nondistended without obstruction. Duodenal findings are described above. No free fluid or free air is seen. There is no lymphadenopathy. The aorta is normal in caliber. No acute osseous abnormality is seen. There is a rim-enhancing heterogeneous lesion at the superior right rectus abdominis muscle measuring 3.4 x 2.1 cm in size on axial imaging, and 3.1 cm craniocaudal. IMPRESSION: 1. Unchanged cystic lesion of the pancreatic head compatible with a pseudocyst. There is peripancreatic edema and duodenal wall thickening consistent with a groove pancreatitis and/or duodenitis. 2. Wedge-shaped perfusion defects in the right lobe of the liver, stable since the prior exam. 3. Rim-enhancing heterogeneous lesion in the superior right rectus abdominis muscle, most likely a small hematoma. Dictated by: Dictated on workstation # [id number]
[2021-09-16 16:24] LABS: ATYPICAL LYMPHOCYTES 4 %; BASOPHILS % (MANUAL) 1 %; EOSINOPHILS % (MANUAL) 3 %; LYMPHOCYTES % (MANUAL) 36 %; MONOCYTES % (MANUAL) 5 %; NEUTROPHILS % (MANUAL) 51 %
[2021-09-16 16:25] LABS: ANISOCYTOSIS SLIGHT; PLATELET ESTIMATE NORMAL; POIKILOCYTOSIS SLIGHT; TEAR DROP CELLS SLIGHT
[2021-09-16 16:46] LABS: BILIRUBIN,URINE NEGATIVE (NEGATIVE); CLARITY,URINE CLEAR; COLOR,URINE YELLOW; GLUCOSE, URINE (UA) NEGATIVE (NEGATIVE); KETONES,URINE NEGATIVE (NEGATIVE); LEUKOCYTE ESTERASE ,URINE NEGATIVE (NEGATIVE); NITRITE,URINE NEGATIVE (NEGATIVE); PH,URINE 6.5 (5-9); PROTEIN,URINE NEGATIVE (NEGATIVE)
--- NOTE | 2021-09-16 16:55 | ED Abdominal Pain ---
General Chief Complaint: Abdominal/GI Problems Stated Complaint: EPIGASTRIC/BACK PAIN Nursing Triage Note: Patient states he has a history of pancreatitis, states he has had a blood clot in a vessel leading to his pancreas and is taking warfarin. He reports he was hospitalized at at the end of July/beginning of August and had his gallbladder removed. He reports he began having severe epigastric pain that radiates to his mid back and nausea today. Source of Information: Patient Exam Limitations: No Limitations History of Present Illness Date Seen by Provider: Sep 16, 2021 Time Seen by Provider: 15:10 Initial Comments 41-year-old male patient with history of alcoholic pancreatitis complaining of right upper quadrant pain since this morning and rated as a severe pain with radiation to his back and associated with nausea and 1 episode of 1 vomiting and 2 episodes of diarrhea like his previous episode of pancreatitis. Patient states he took Tylenol without improvement of his pain. Patient states he had blood clot in some part of his pancreas with necrosis and had cholecystectomy on August 07 at [facility]. Patient stated the last couple of days he has had edema and change of color of 1 area of laparoscopic cholecystectomy scar with pain. patient has had frequent emergency room visit with complaining of abdominal pain. Allergies and Home Medications Allergies Uncoded Allergies: pcn (Allergy, Unknown, 01/29/21) Patient Home Medication List Home Medication List Reviewed: Yes Hydrocodone/Acetaminophen (Hydrocodone-Acetamin 5-325 mg) 1 Each Tablet, 1 TAB PO Q4H PRN for PAIN-MODERATE (5-7) Prescribed by: ORLANDO CARBALLO on 01/29/21 1635 Ondansetron (Ondansetron Odt) 4 Mg Tab.rapdis, 4 MG PO Q6H PRN for NAUSEA/VOMITING Prescribed by: ORLANDO CARBALLO on 01/29/21 1635 Oxycodone HCl (Oxycodone HCl) 5 Mg Tablet, 5 MG PO Q6H PRN for PAIN-SEVERE (8- 10) Prescribed by: FRANCISCO JAVIER CHIRINOS on 07/29/21 1458 Sucralfate (Carafate) 1 Gram Tablet, 1 GM PO ACHS Prescribed by: ORLANDO CARBALLO on 08/24/21 1120 Review of Systems Review of Systems Constitutional: no symptoms reported EENTM: No Symptoms Reported Respiratory: No Symptoms Reported Cardiovascular: No Symptoms Reported Gastrointestinal: Abdominal Pain, Diarrhea, Nausea, Vomiting Genitourinary: No Symptoms Reported Musculoskeletal: see HPI Skin: no symptoms reported Psychiatric/Neurological: No Symptoms Reported Endocrine: No Symptoms Reported Hematologic/Lymphatic: No Symptoms Reported All Other Systems Reviewed Negative Unless Noted: Yes Past Czqzynb-Hgkrdm-Ahdxbz Hx Patient Social History Tobacco Use?: No Use of E-Cig and/or Vaping dev: No Substance use?: Yes Substance type: Marijuana Immunizations Up To Date First/Initial COVID19 Vaccinat: Not currently Second COVID19 Vaccination Aris: Not currently Third COVID19 Vaccination Date: Not currently Past Medical History Surgery/Hospitalization HX: myocarditis; [place], autoimmune, pancreatitis, pancreatic pseudocyst, 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 oz. kg; 17.00 BMI Method: General Appearance: mild distress, thin HEENT: PERRL/EOMI, TMs normal, pharynx normal Neck: non-tender, full range of motion, supple, normal inspection Respiratory: chest non-tender, lungs clear, normal breath sounds, no respiratory distress, no accessory muscle use Cardiovascular: regular rate, rhythm, no edema, no gallop, no JVD, no murmur Gastrointestinal: soft, guarding, other (2 x 2 cm bulging of right upper quadrant scar with darker color and tenderness) Extremities: normal range of motion, non-tender Back: normal inspection, no CVA tenderness Neurologic/Psychiatric: no motor/sensory deficits, alert, other (Anxious) Focused Exam Lactate Level 09/16/21 15:50: Lactic Acid Level 1.17 Lactic Acid Level Laboratory Tests Test 09/16/21 15:50 Lactic Acid Level 1.17 MMOL/L (0.50-2.00) Progress/Results/Core Measures Results/Orders Lab Results Laboratory Tests Test 09/16/21 15:02 09/16/21 15:40 09/16/21 15:50 09/16/21 16:43 Range/Units White Blood Count 18.1 H 4.3-11.0 10^3/uL Red Blood Count 4.89 4.30-5.52 10^6/uL Hemoglobin 15.3 13.3-17.7 g/dL Hematocrit 44 40-54 % Mean Corpuscular Volume 89 80-99 fL Mean Corpuscular Hemoglobin 31 25-34 pg Mean Corpuscular Hemoglobin Concent 35 32-36 g/dL Red Cell Distribution Width 12.2 10.0-14.5 % Platelet Count 394 130-400 10^3/uL Mean Platelet Volume 9.9 9.0-12.2 fL Immature Granulocyte % (Auto) 0 % Neutrophils (%) (Auto) 56 42-75 % Lymphocytes (%) (Auto) 34 12-44 % Monocytes (%) (Auto) 5 0-12 % Eosinophils (%) (Auto) 4 0-10 % Basophils (%) (Auto) 1 0-10 % Neutrophils # (Auto) 10.1 H 1.8-7.8 10^3/uL Lymphocytes # (Auto) 6.2 H 1.0-4.0 10^3/uL Monocytes # (Auto) 1.0 0.0-1.0 10^3/uL Eosinophils # (Auto) 0.7 H 0.0-0.3 10^3/uL Basophils # (Auto) 0.1 0.0-0.1 10^3/uL Immature Granulocyte # (Auto) 0.1 0.0-0.1 10^3/uL Neutrophils % (Manual) 51 % Lymphocytes % (Manual) 36 % Monocytes % (Manual) 5 % Eosinophils % (Manual) 3 % Basophils % (Manual) 1 % Atypical Lymphocytes 4 % Platelet Estimate NORMAL Poikilocytosis SLIGHT Anisocytosis SLIGHT Tear Drop Cells SLIGHT Sodium Level 140 135-145 MMOL/L Potassium Level 3.6 3.6-5.0 MMOL/L Chloride Level 103 98-107 MMOL/L Carbon Dioxide Level 27 21-32 MMOL/L Anion Gap 10 5-14 MMOL/L Blood Urea Nitrogen 5 L 7-18 MG/DL Creatinine 0.85 0.60-1.30 MG/DL Estimat Glomerular Filtration Rate 113 BUN/Creatinine Ratio 6 Glucose Level 142 H 70-105 MG/DL Calcium Level 9.9 8.5-10.1 MG/DL Corrected Calcium 9.7 8.5-10.1 MG/DL Total Bilirubin 0.3 0.1-1.0 MG/DL Aspartate Amino Transf (AST/SGOT) 13 5-34 U/L Alanine Aminotransferase (ALT/SGPT) 11 0-55 U/L Alkaline Phosphatase 118 40-136 U/L Total Protein 7.3 6.4-8.2 GM/DL Albumin 4.3 3.2-4.5 GM/DL Amylase Level 64 25-125 U/L Lipase 125 H 8-78 U/L Serum Alcohol 10 <10 MG/DL SARS-CoV-2 RNA (RT-PCR) Not Detected Not Detecte Lactic Acid Level 1.17 0.50-2.00 MMOL/L Urine Color YELLOW Urine Clarity CLEAR Urine pH 6.5 5-9 Urine Specific [place] <=1.005 1.016-1.022 Urine Protein NEGATIVE NEGATIVE Urine Glucose (UA) NEGATIVE NEGATIVE Urine Ketones NEGATIVE NEGATIVE Urine Nitrite NEGATIVE NEGATIVE Urine Bilirubin NEGATIVE NEGATIVE Urine Urobilinogen 0.2 < = 1.0 MG/DL Urine Leukocyte Esterase NEGATIVE NEGATIVE Urine RBC (Auto) NEGATIVE NEGATIVE Urine RBC NONE /HPF Urine WBC NONE /HPF Urine Squamous Epithelial Cells 0-2 /HPF Urine Crystals PRESENT H /LPF Urine Amorphous Sediment FEW SOLANGE URATES H /LPF Urine Bacteria NEGATIVE /HPF Urine Casts NONE /LPF Urine Mucus NEGATIVE /LPF Urine Culture Indicated NO Urine Opiates Screen POSITIVE H NEGATIVE Urine Oxycodone Screen NEGATIVE NEGATIVE Urine Methadone Screen NEGATIVE NEGATIVE Urine Propoxyphene Screen NEGATIVE NEGATIVE Urine Barbiturates Screen NEGATIVE NEGATIVE Ur Tricyclic Antidepressants Screen NEGATIVE NEGATIVE Urine Phencyclidine Screen NEGATIVE NEGATIVE Urine Amphetamines Screen NEGATIVE NEGATIVE Urine Methamphetamines Screen NEGATIVE NEGATIVE Urine Benzodiazepines Screen NEGATIVE NEGATIVE Urine Cocaine Screen NEGATIVE NEGATIVE Urine Cannabinoids Screen NEGATIVE NEGATIVE My Orders Orders - ANGEL LLANES MD Comprehensive Metabolic Panel (09/16/21 15:20) Lipase (09/16/21 15:20) Amylase (09/16/21 15:20) Ua Culture If Indicated (09/16/21 15:20) Cbc With Automated Diff (09/16/21 15:20) Ct Abdomen/Pelvis W (09/16/21 15:20) Drug Screen Stat (Urine) (09/16/21 15:20) Alcohol (09/16/21 15:20) Ns Iv 1000 Ml (Sodium Chloride 0.9%) (09/16/21 15:30) Ondansetron Injection (Zofran Injectio (09/16/21 15:30) Morphine Injection (Morphine Injection (09/16/21 15:20) Iohexol Injection (Omnipaque 350 Mg/Ml 1 (09/16/21 15:30) Received Contrast (Hold Metformin- Contr (09/16/21 15:30) Sodium Chloride Flush (Catheter Flush Sy (09/16/21 15:30) Ns (Ivpb) (Sodium Chloride 0.9% Ivpb Bag (09/16/21 15:30) Lactic Acid Analyzer (09/16/21 15:32) Covid 19 Inhouse Test (09/16/21 15:32) Manual Differential (09/16/21 15:02) Medications Given in ED Current Medications Medications Dose Ordered Sig/Rasheed Route Start Time Stop Time Status Last Admin Dose Admin Iohexol 100 ml ONCE ONCE IV 09/16/21 15:30 09/16/21 15:31 DC 09/16/21 15:43 80 ML Ondansetron HCl 4 mg ONCE ONCE IVP 09/16/21 15:30 09/16/21 15:31 DC 09/16/21 15:28 4 MG Sodium Chloride 10 ml NEEDED PRN IV 09/16/21 15:30 09/16/21 15:43 10 ML Sodium Chloride 100 ml ONCE ONCE IV 09/16/21 15:30 09/16/21 15:31 DC 09/16/21 15:43 100 ML Vital Signs/I&O 09/16/21 14:59 Temp 36.6 Pulse 94 Resp 16 B/P (MAP) 143/88 (106) Pulse Ox 99 O2 Delivery Room Air Blood Pressure Mean: 106 Progress Progress Note : Progress Note Evaluation of patient in ER showed 41-year-old male patient with history of chronic pancreatitis and pseudocyst of pancreas presented to ER with complaining of abdominal pain since this morning and bulging of surgical area for couple days. Patient was very anxious and complaining of severe pain. Patient had small hematoma of rectus muscle at area of surgery. Labs showed white count of 18,000 as a chronic leukocytosis without lactic acidemia. Lipase was mildly elevated at 125 with history of elevation of lipase. CMP otherwise was unremarkable. UA and urine drug screen was unremarkable. Patient had 2 mg of morphine at arrival to ER and after informing her about test results and is to follow-up with primary care physician refused to take any more morphine or hydrocodone and decided to follow-up with his primary care physician as a scheduled in 3 days. Patient advised to follow-up with his surgeon regarding abdominal wall hematoma. Patient has Zofran at home and advised to take it as needed. Diagnostic Imaging Diagonstic Imaging: CT (Abdomen pelvis) Comments CT abdomen pelvis interpreted by radiologist and reviewed by me and showed: NAME: LISETH LOOMIS [facility] REC#: [id number] PT STATUS: REG ER : 1980 PHYSICIAN: ANGEL LLANES MD ADMIT DATE: 09/16/21/ER FS Signed Date of Exam:09/16/21 CT ABDOMEN/PELVIS W PROCEDURE: CT abdomen and pelvis with contrast. TECHNIQUE: Multiple contiguous axial images were obtained through the abdomen and pelvis after administration of intravenous contrast. Auto Exposure Controls were utilized during the CT exam to meet ALARA standards for radiation dose reduction. All CT scans use one or more of the following dose optimizing techniques: Automated exposure control, MA and/or KvP adjustment based on patient size and exam type or iterative reconstruction. INDICATION: Epigastric abdominal pain and nausea. History of pancreatitis. COMPARISON: 08/20/2021. FINDINGS: The lung bases are clear. The heart is normal in size. There is no pericardial effusion. The liver demonstrates two wedge-shaped areas of decreased enhancement in the superior right liver, both of which appear similar to 08/18/2021. No new liver lesion is seen. There is a hypodensity in the left lobe, which likely represents a cyst and appears stable. The spleen appears normal. Cholecystectomy clips are noted. There is a cystic lesion at the pancreatic head, which measures 3.2 x 3.1 cm in size. This is stable since the prior study. There is peripancreatic edema about the pancreatic head, as well as wall thickening along the proximal duodenum. There is no ductal dilatation of the pancreas, and no other peripancreatic edema is seen. The adrenal glands appear normal. The kidneys demonstrate no hydronephrosis or enhancing lesions. There are small simple-appearing cysts in the left kidney. The appendix is normal. The bowel loops are nondistended without obstruction. Duodenal findings are described above. No free fluid or free air is seen. There is no lymphadenopathy. The aorta is normal in caliber. No acute osseous abnormality is seen. There is a rim-enhancing heterogeneous lesion at the superior right rectus abdominis muscle measuring 3.4 x 2.1 cm in size on axial imaging, and 3.1 cm craniocaudal. IMPRESSION: 1. Unchanged cystic lesion of the pancreatic head compatible with a pseudocyst. There is peripancreatic edema and duodenal wall thickening consistent with a groove pancreatitis and/or duodenitis. 2. Wedge-shaped perfusion defects in the right lobe of the liver, stable since the prior exam. 3. Rim-enhancing heterogeneous lesion in the superior right rectus abdominis muscle, most likely a small hematoma. Dictated by: Dictated on workstation # [id number] Dict: 09/16/21 1556 Trans: 09/16/21 1651 [id number] Interpreted by: WALTER MÁRQUEZ MD Electronically signed by: WALTER MÁRQUEZ MD 09/16/21 1651 Departure Impression Primary Impression: Abdominal pain Qualified Codes: R10.9 - Unspecified abdominal pain Additional Impressions: Chronic recurrent pancreatitis Postprocedural hematoma of abdominal wall Disposition: 01 HOME, SELF-CARE Condition: Stable Departure-Patient Inst. Decision time for Depature: 17:09 Referrals: PADMINI CORONADO APRN (PCP) Primary Care Physician DAVID GERBER MD (Family) Primary Care Physician Patient Instructions: Pancreatitis (DC) Add. Discharge Instructions: Continue home nausea medication Drink plenty of liquids Follow-up with your primary care physician for referral to pain management Follow-up with your GI and surgeon at regarding abdominal wall hematoma Return to ER as needed All discharge instructions reviewed with patient and/or family. Voiced understanding. ANGEL LLANES MD Sep 16, 2021 16:54
[2021-09-16 16:57] LABS: AMORPHOUS SEDIMENT,UR FEW AMOR URATES /LPF; BACTERIA,URINE NEGATIVE /HPF; SQUAMOUS EPITHELIAL CELL,UR 0-2 /HPF
[2021-09-16 17:00] LABS: AMPHETAMINE SCREEN, URINE NEGATIVE (NEGATIVE); BARBITURATE SCREEN URINE NEGATIVE (NEGATIVE); BENZODIAZEPINES SCREEN URINE NEGATIVE (NEGATIVE); CANNABINOID SCREEN, URINE NEGATIVE (NEGATIVE); COCAINE SCREEN URINE NEGATIVE (NEGATIVE); METHADONE STAT NEGATIVE (NEGATIVE); OPIATE SCREEN URINE POSITIVE (NEGATIVE); OXYCODONE STAT NEGATIVE (NEGATIVE); PROPOXYPHENE STAT NEGATIVE (NEGATIVE); TRICYCLIC ANTIDEPRESSANTS SCRE NEGATIVE (NEGATIVE)
[2021-09-16 17:13] VITALS: BP 161/82
[2021-09-16] MEDS ORDERED: HYDROcodone/APAP 5 MG/325 MG (LORTAB) TAB PO ONE (17:15)
== END 2021-09-16 17:15 | disposition home or self-care (01) ==
LOC: EDUNIT# 14:53 → ER FS 14:54
DX: K91.871 Postprocedural hematoma of a digestive system organ or structure following other procedure (principal); K86.0 Alcohol-induced chronic pancreatitis; D72.829 Elevated white blood cell count, unspecified; R74.8 Abnormal levels of other serum enzymes; Z90.49 Acquired absence of other specified parts of digestive tract; Z20.822 Contact with and (suspected) exposure to COVID-19; Z28.310 Unvaccinated for COVID-19
CPT/HCPCS: 36415; 74177; 80053; 80306; 81000; 82150; 83605; 83690; 85007; 85027; 87636; 99284; G0480; 80320; Q9967

== ENCOUNTER 2021-09-19 15:47 | Emergency (ER) | payer SELFPAY ==
[~2021-09-19] VITALS: Ht 172 cm; Wt 53.6 kg
[2021-09-19] MEDS ORDERED: morphine INJ 10 MG/ML 1ML (SYR OR VIAL) IVP STA (16:20)
[2021-09-19] MEDS ORDERED: ONDANSETRON 4 MG/2 ML (SDV) Z0FRAN IVP ONE (16:30)
[2021-09-19] MEDS ORDERED: KETOROLAC 30 MG/ML VIAL IVP ONE (16:30)
[2021-09-19 16:32] LABS: BASOPHILS # (AUTO) 0.1 10^3/uL (0.0-0.1); BASOPHILS % (AUTO) 1 % (0-10); EOSINOPHILS # (AUTO) 0.5 10^3/uL (0.0-0.3); EOSINOPHILS % (AUTO) 3 % (0-10); HEMATOCRIT 44 % (40-54); HEMOGLOBIN 15.6 g/dL (13.3-17.7); LYMPHOCYTES # (AUTO) 5.2 10^3/uL (1.0-4.0); LYMPHOCYTES % (AUTO) 30 % (12-44); MEAN CORPUSCULAR HEMOGLOBIN 32 pg (25-34); MEAN CORPUSCULAR HGB CONC 36 g/dL (32-36); MEAN CORPUSCULAR VOLUME 88 fL (80-99); MEAN PLATELET VOLUME 9.9 fL (9.0-12.2); MONOCYTES # (AUTO) 0.8 10^3/uL (0.0-1.0); MONOCYTES % (AUTO) 5 % (0-12); NEUTROPHILS % (AUTO) 62 % (42-75); PLATELET COUNT 268 10^3/uL (130-400); WHITE BLOOD COUNT 17.6 10^3/uL (4.3-11.0)
--- NOTE | 2021-09-19 16:36 | ED Abdominal Pain ---
General Chief Complaint: Abdominal/GI Problems Stated Complaint: ABD PAIN Source of Information: Patient Exam Limitations: No Limitations History of Present Illness Date Seen by Provider: Sep 19, 2021 Time Seen by Provider: 15:52 Initial Comments 41-year-old male with past medical history of chronic pancreatitis from alcohol use disorder coming in due to epigastric pain. This episode started several days ago, worsening today. Has associated nausea but no vomiting. He was seen here 3 days ago and had a CT of his abdomen and pelvis showing really no significant changes. He has been taking Tylenol for his pain. He states his regular doctor tomorrow, and [facility] in a couple weeks. He is otherwise denying any fever, chest pain, shortness of breath, diarrhea, vomiting, rash, or any other concerns. Allergies and Home Medications Allergies Uncoded Allergies: pcn (Allergy, Unknown, 01/29/21) Patient Home Medication List Home Medication List Reviewed: Yes Hydrocodone/Acetaminophen (Hydrocodone-Acetamin 5-325 mg) 1 Each Tablet, 1 TAB PO Q4H PRN for PAIN-MODERATE (5-7) Prescribed by: ORLANDO CARBALLO on 01/29/21 1635 Ondansetron (Ondansetron Odt) 4 Mg Tab.rapdis, 4 MG PO Q6H PRN for NAUSEA/VOMITING Prescribed by: ORLANDO CARBALLO on 01/29/21 1635 Oxycodone HCl (Oxycodone HCl) 5 Mg Tablet, 5 MG PO Q6H PRN for PAIN-SEVERE (8- 10) Prescribed by: FRANCISCO JAVIER CHIRINOS on 07/29/21 1458 Sucralfate (Carafate) 1 Gram Tablet, 1 GM PO ACHS Prescribed by: ORLANDO CARBALLO on 08/24/21 1120 Review of Systems Review of Systems Constitutional: No fever EENTM: No Blurred Vision Respiratory: Denies Cough Cardiovascular: Denies Chest Pain Gastrointestinal: Abdominal Pain, Nausea Genitourinary: No Symptoms Reported Musculoskeletal: no symptoms reported Skin: no symptoms reported Psychiatric/Neurological: No Symptoms Reported Endocrine: No Symptoms Reported Hematologic/Lymphatic: No Symptoms Reported All Other Systems Reviewed Negative Unless Noted: Yes Past Xwlihmk-Slbkin-Jxjkjc Hx Patient Social History Tobacco Use?: Yes Tobacco type used: Cigarettes Smoking Status: Current Everyday Smoker Use of E-Cig and/or Vaping dev: No Substance use?: No Alcohol Use?: No Immunizations Up To Date First/Initial COVID19 Vaccinat: Not currently Second COVID19 Vaccination Aris: Not currently Third COVID19 Vaccination Date: Not currently Past Medical History Surgery/Hospitalization HX: myocarditis; [place], autoimmune, pancreatitis, pancreatic pseudocyst, 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 oz. kg; 17.00 BMI Method: General Appearance: WD/WN, mild distress HEENT: PERRL/EOMI, normal ENT inspection, pharynx normal Neck: non-tender, full range of motion, supple, normal inspection Respiratory: chest non-tender, lungs clear, normal breath sounds, no respiratory distress, no accessory muscle use Cardiovascular: regular rate, rhythm, no edema, no murmur Gastrointestinal: normal bowel sounds, soft; No distended, No guarding, No rebound; tenderness Extremities: normal range of motion, non-tender, normal inspection, no pedal edema, no calf tenderness, normal capillary refill Back: normal inspection, no CVA tenderness Neurologic/Psychiatric: no motor/sensory deficits, alert, normal mood/affect Skin: normal color, warm/dry Lymphatic: no adenopathy Progress/Results/Core Measures Results/Orders Lab Results Laboratory Tests Test 09/19/21 16:27 Range/Units White Blood Count 17.6 H 4.3-11.0 10^3/uL Red Blood Count 4.92 4.30-5.52 10^6/uL Hemoglobin 15.6 13.3-17.7 g/dL Hematocrit 44 40-54 % Mean Corpuscular Volume 88 80-99 fL Mean Corpuscular Hemoglobin 32 25-34 pg Mean Corpuscular Hemoglobin Concent 36 32-36 g/dL Red Cell Distribution Width 12.3 10.0-14.5 % Platelet Count 268 130-400 10^3/uL Mean Platelet Volume 9.9 9.0-12.2 fL Immature Granulocyte % (Auto) 0 % Neutrophils (%) (Auto) 62 42-75 % Lymphocytes (%) (Auto) 30 12-44 % Monocytes (%) (Auto) 5 0-12 % Eosinophils (%) (Auto) 3 0-10 % Basophils (%) (Auto) 1 0-10 % Neutrophils # (Auto) 11.0 H 1.8-7.8 10^3/uL Lymphocytes # (Auto) 5.2 H 1.0-4.0 10^3/uL Monocytes # (Auto) 0.8 0.0-1.0 10^3/uL Eosinophils # (Auto) 0.5 H 0.0-0.3 10^3/uL Basophils # (Auto) 0.1 0.0-0.1 10^3/uL Immature Granulocyte # (Auto) 0.0 0.0-0.1 10^3/uL Prothrombin Time 23.8 H 12.2-14.7 SEC INR Comment 2.1 H 0.8-1.4 Sodium Level 141 135-145 MMOL/L Potassium Level 4.0 3.6-5.0 MMOL/L Chloride Level 105 98-107 MMOL/L Carbon Dioxide Level 26 21-32 MMOL/L Anion Gap 10 5-14 MMOL/L Blood Urea Nitrogen 5 L 7-18 MG/DL Creatinine 0.90 0.60-1.30 MG/DL Estimat Glomerular Filtration Rate 111 BUN/Creatinine Ratio 6 Glucose Level 108 H 70-105 MG/DL Calcium Level 9.9 8.5-10.1 MG/DL Corrected Calcium 9.8 8.5-10.1 MG/DL Total Bilirubin 0.4 0.1-1.0 MG/DL Aspartate Amino Transf (AST/SGOT) 13 5-34 U/L Alanine Aminotransferase (ALT/SGPT) 10 0-55 U/L Alkaline Phosphatase 116 40-136 U/L Total Protein 7.5 6.4-8.2 GM/DL Albumin 4.1 3.2-4.5 GM/DL Lipase 67 8-78 U/L My Orders Orders - FRANCISCO JAVIER CHIRINOS MD Comprehensive Metabolic Panel (09/19/21 16:20) Lipase (09/19/21 16:20) Ed Iv/Invasive Line Start (09/19/21 16:20) Cbc With Automated Diff (09/19/21 16:20) Protime With Inr (09/19/21 16:20) Ondansetron Injection (Zofran Injectio (09/19/21 16:30) Morphine Injection (Morphine Injection (09/19/21 16:20) Ketorolac Injection (Toradol Injection) (09/19/21 16:30) Medications Given in ED Current Medications Medications Dose Ordered Sig/Rasheed Route Start Time Stop Time Status Last Admin Dose Admin Ketorolac Tromethamine 15 mg ONCE ONCE IVP 09/19/21 16:30 09/19/21 16:31 DC 09/19/21 16:26 15 MG Ondansetron HCl 4 mg ONCE ONCE IVP 09/19/21 16:30 09/19/21 16:31 DC 09/19/21 16:26 4 MG Vital Signs/I&O 09/19/21 16:31 Temp 36.5 Pulse 86 Resp 14 B/P (MAP) 143/77 (99) Pulse Ox 97 O2 Delivery Room Air Progress Progress Note : Progress Note 41-year-old male with above history coming in due to abdominal pain. ABCs were intact and vitals were stable on presentation. He is nontoxic-appearing he has known to me and does have a history of chronic pancreatitis. He had a full work-up including CT scan just a couple days ago. Pain has not really changed much since then in quality or quantity. He appears similar to when I have seen him in the past. An IV was placed and he was given morphine for pain and Zofran for nausea. Labs unremarkable with chronic leukocytosis and normal lipase. I will give him some oral meds to help with his acute on chronic pancreatitis, I will recommend bland diet/liquids for the next couple of days. He has good follow-up already. He was then discharged home in stable condition with strict return precautions. Departure Impression Primary Impression: Chronic recurrent pancreatitis Disposition: 01 HOME, SELF-CARE Condition: Stable Departure-Patient Inst. Decision time for Depature: 16:58 Referrals: PADMINI CORONADO APRN (PCP) Primary Care Physician DAVID GERBER MD (Family) Primary Care Physician Patient Instructions: Chronic Pancreatitis (DC) Add. Discharge Instructions: Your labs are reassuring today. Your vitals look good and it does not look like you have any worsening infection. Continue to take your regular medicines as prescribed. Pain medicines were sent to [facility] since they are the only pharmacy open today. Be sure to continue your follow-up as scheduled. Scripts Oxycodone HCl (Oxycodone HCl) 5 Mg Tablet 5 MG PO Q6H PRN for PAIN-SEVERE (8-10) for 3 Days, #12 TAB Prov: FRANCISCO JAVIER CHIRINOS MD 09/19/21 Work/School Note: Work Release Form Date Seen in the Emergency Department: Sep 19, 2021 Return to Work: Sep 21, 2021 Restrictions: No Restrictions FRANCISCO JAVIER CHIRINOS MD Sep 19, 2021 16:35
[2021-09-19 16:47] LABS: INR 2.1 (0.8-1.4); PROTHROMBIN TIME PATIENT 23.8 SEC (12.2-14.7)
[2021-09-19 16:52] LABS: ALBUMIN 4.1 GM/DL (3.2-4.5); BILIRUBIN,TOTAL 0.4 MG/DL (0.1-1.0); CALCIUM 9.9 MG/DL (8.5-10.1); CREATININE SERUM 0.9 MG/DL (0.60-1.30); TOTAL PROTEIN 7.5 GM/DL (6.4-8.2)
[2021-09-19] MEDS ORDERED: OXYC5TAB PO (17:00)
[2021-09-19 17:16] VITALS: BP 146/79
== END 2021-09-19 17:10 | disposition home or self-care (01) ==
LOC: EDUNIT# 15:47 → ER FS 15:49
DX: K86.1 Other chronic pancreatitis (principal); D72.829 Elevated white blood cell count, unspecified; F17.210 Nicotine dependence, cigarettes, uncomplicated; Z28.310 Unvaccinated for COVID-19
CPT/HCPCS: 36415; 80053; 83690; 85025; 85610

== ENCOUNTER 2021-09-21 14:01 | Inpatient (IN) | payer SELFPAY ==
[~2021-09-21] VITALS: Ht 172.7 cm; Wt 53.6 kg
--- NOTE | 2021-09-21 14:20 | ED Abdominal Pain ---
General Chief Complaint: Abdominal/GI Problems Stated Complaint: EPIGASTRIC PAIN History of Present Illness Date Seen by Provider: Sep 21, 2021 Time Seen by Provider: 14:20 Initial Comments 41-year-old male with PMH of recovering alcoholism, who has been sober for the past 80 days/pancreatitis, is here with complaints of ongoing abdominal pain. Today the pain is 10/10. Patient has had 2 ER visits on 08/18 and 09/16, with CAT scans of the abdomen done both times showing pancreatitis and pancreatic pseudoc yst. In between the 2 ER visits patient has had a burger and chicken and noodles to eat. Currently the patient has not had anything to eat since Monday due to the pain. Patient has associated nausea. Denies fever, diarrhea, vomiting, chest pain, palpitation, dysuria. Patient saw his PCP yesterday and his hydrocodone dose was increased to help with the pain, but the pain has been unremitting as per patient. Allergies and Home Medications Allergies Uncoded Allergies: pcn (Allergy, Unknown, 01/29/21) Patient Home Medication List Home Medication List Reviewed: Yes Hydrocodone/Acetaminophen (Hydrocodone-Acetamin 5-325 mg) 1 Each Tablet, 1 TAB PO Q4H PRN for PAIN-MODERATE (5-7) Prescribed by: ORLANDO CARBALLO on 01/29/21 1635 Ondansetron (Ondansetron Odt) 4 Mg Tab.rapdis, 4 MG PO Q6H PRN for NAUSEA/VOMITING Prescribed by: ORLANDO CARBALLO on 01/29/21 1635 Oxycodone HCl (Oxycodone HCl) 5 Mg Tablet, 5 MG PO Q6H PRN for PAIN-SEVERE (8- 10) Prescribed by: FRANCISCO JAVIER CHIRINOS on 07/29/21 1458 Oxycodone HCl (Oxycodone HCl) 5 Mg Tablet, 5 MG PO Q6H PRN for PAIN-SEVERE (8- 10) Prescribed by: FRANCISCO JAVIER CHIRINOS on 09/19/21 1701 Sucralfate (Carafate) 1 Gram Tablet, 1 GM PO ACHS Prescribed by: ORLANDO CARBALLO on 08/24/21 1120 Review of Systems Review of Systems Constitutional: no symptoms reported EENTM: No Symptoms Reported Respiratory: No Symptoms Reported, Orthopnea Gastrointestinal: Abdominal Pain, Nausea, Poor Appetite, Poor Fluid Intake Genitourinary: No Symptoms Reported Musculoskeletal: no symptoms reported Skin: no symptoms reported Psychiatric/Neurological: No Symptoms Reported Endocrine: No Symptoms Reported Hematologic/Lymphatic: No Symptoms Reported Past Vwsvrti-Zgjgnn-Chxgsn Hx Immunizations Up To Date First/Initial COVID19 Vaccinat: Not currently Second COVID19 Vaccination Aris: Not currently Third COVID19 Vaccination Date: Not currently Past Medical History Surgery/Hospitalization HX: myocarditis; [place], autoimmune, pancreatitis, pancreatic pseudocyst, 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 oz. kg; 18.00 BMI Method: General Appearance: WD/WN, moderate distress HEENT: PERRL/EOMI Neck: non-tender, full range of motion Respiratory: chest non-tender, lungs clear, normal breath sounds Cardiovascular: normal peripheral pulses, regular rate, rhythm Gastrointestinal: normal bowel sounds, soft, no organomegaly, no pulsatile mass, tenderness (diffuse tenderness with increased pain in the LUQ and epigastric region) Extremities: normal range of motion Back: normal inspection, no CVA tenderness Neurologic/Psychiatric: alert, normal mood/affect, oriented x 3 Skin: normal color Focused Exam Lactate Level 09/21/21 15:45: Lactic Acid Level 2.46*H 09/21/21 17:25: Lactic Acid Level Laboratory Tests Test 09/21/21 15:45 09/21/21 17:25 Lactic Acid Level 2.46 MMOL/L (0.50-2.00) *H Progress/Results/Core Measures Results/Orders Lab Results Laboratory Tests Test 09/21/21 15:00 09/21/21 15:45 09/21/21 15:49 09/21/21 17:25 Range/Units White Blood Count 18.3 H 4.3-11.0 10^3/uL Red Blood Count 4.99 4.30-5.52 10^6/uL Hemoglobin 15.6 13.3-17.7 g/dL Hematocrit 44 40-54 % Mean Corpuscular Volume 88 80-99 fL Mean Corpuscular Hemoglobin 31 25-34 pg Mean Corpuscular Hemoglobin Concent 35 32-36 g/dL Red Cell Distribution Width 12.1 10.0-14.5 % Platelet Count 362 130-400 10^3/uL Mean Platelet Volume 9.3 9.0-12.2 fL Immature Granulocyte % (Auto) 0 % Neutrophils (%) (Auto) 66 42-75 % Lymphocytes (%) (Auto) 25 12-44 % Monocytes (%) (Auto) 5 0-12 % Eosinophils (%) (Auto) 3 0-10 % Basophils (%) (Auto) 0 0-10 % Neutrophils # (Auto) 12.1 H 1.8-7.8 10^3/uL Lymphocytes # (Auto) 4.6 H 1.0-4.0 10^3/uL Monocytes # (Auto) 1.0 0.0-1.0 10^3/uL Eosinophils # (Auto) 0.5 H 0.0-0.3 10^3/uL Basophils # (Auto) 0.1 0.0-0.1 10^3/uL Immature Granulocyte # (Auto) 0.1 0.0-0.1 10^3/uL Sodium Level 140 135-145 MMOL/L Potassium Level 3.5 L 3.6-5.0 MMOL/L Chloride Level 103 98-107 MMOL/L Carbon Dioxide Level 26 21-32 MMOL/L Anion Gap 11 5-14 MMOL/L Blood Urea Nitrogen 6 L 7-18 MG/DL Creatinine 0.96 0.60-1.30 MG/DL Estimat Glomerular Filtration Rate 102 BUN/Creatinine Ratio 6 Glucose Level 119 H 70-105 MG/DL Calcium Level 9.8 8.5-10.1 MG/DL Corrected Calcium 9.6 8.5-10.1 MG/DL Magnesium Level 1.8 1.6-2.4 MG/DL Total Bilirubin 0.5 0.1-1.0 MG/DL Aspartate Amino Transf (AST/SGOT) 10 5-34 U/L Alanine Aminotransferase (ALT/SGPT) 8 0-55 U/L Alkaline Phosphatase 120 40-136 U/L Troponin I < 0.30 <0.30 NG/ML Total Protein 7.3 6.4-8.2 GM/DL Albumin 4.2 3.2-4.5 GM/DL Lipase 87 H 8-78 U/L Serum Alcohol < 10 <10 MG/DL Lactic Acid Level 2.46 *H 0.50-2.00 MMOL/L Urine Color ORANGE Urine Clarity SL CLOUDY Urine pH 6.0 5-9 Urine Specific [place] 1.015 L 1.016-1.022 Urine Protein NEGATIVE NEGATIVE Urine Glucose (UA) NEGATIVE NEGATIVE Urine Ketones NEGATIVE NEGATIVE Urine Nitrite NEGATIVE NEGATIVE Urine Bilirubin NEGATIVE NEGATIVE Urine Urobilinogen 1.0 < = 1.0 MG/DL Urine Leukocyte Esterase NEGATIVE NEGATIVE Urine RBC (Auto) NEGATIVE NEGATIVE Urine RBC 0-2 /HPF Urine WBC 2-5 /HPF Urine Squamous Epithelial Cells 2-5 /HPF Urine Crystals PRESENT H /LPF Urine Calcium Oxalate Crystals FEW H /LPF Urine Bacteria TRACE /HPF Urine Casts PRESENT /LPF Urine Hyaline Casts >50 H /LPF Urine Mucus MODERATE H /LPF Urine Culture Indicated NO Urine Opiates Screen POSITIVE H NEGATIVE Urine Oxycodone Screen POSITIVE H NEGATIVE Urine Methadone Screen NEGATIVE NEGATIVE Urine Propoxyphene Screen NEGATIVE NEGATIVE Urine Barbiturates Screen NEGATIVE NEGATIVE Ur Tricyclic Antidepressants Screen NEGATIVE NEGATIVE Urine Phencyclidine Screen NEGATIVE NEGATIVE Urine Amphetamines Screen NEGATIVE NEGATIVE Urine Methamphetamines Screen NEGATIVE NEGATIVE Urine Benzodiazepines Screen NEGATIVE NEGATIVE Urine Cocaine Screen NEGATIVE NEGATIVE Urine Cannabinoids Screen POSITIVE H NEGATIVE My Orders Orders - DANE MYLES MD Alcohol (09/21/21 14:36) Cbc With Automated Diff (09/21/21 14:36) Comprehensive Metabolic Panel (09/21/21 14:36) Drug Screen Stat (Urine) (09/21/21 14:36) Lactic Acid Analyzer (09/21/21 14:36) Lipase (09/21/21 14:36) Magnesium (09/21/21 14:36) Ua Culture If Indicated (09/21/21 14:36) Troponin I Fs (09/21/21 14:36) Chest 1 View Ap/Pa Only (09/21/21 14:37) Ns (Ivpb) (Sodium Chloride 0.9% Ivpb Bag (09/21/21 14:45) Sodium Chloride Flush (Catheter Flush Sy (09/21/21 14:45) Morphine Injection (Morphine Injection (09/21/21 15:08) Ed Iv/Invasive Line Start (09/21/21 15:08) Ns Iv 1000 Ml (Sodium Chloride 0.9%) (09/21/21 15:15) Blood Culture (09/21/21 17:20) Lactic Acid Analyzer (09/21/21 17:20) Ed Iv/Invasive Line Start (09/21/21 17:20) Ns Iv 1000 Ml (Sodium Chloride 0.9%) (09/21/21 17:30) Ceftriaxone 1 Gm Pre-Mix (Rocephin 1 Gm (09/21/21 17:30) Metronidazole 500mg/100ml Ivpb (Flagyl 5 (09/21/21 17:30) Medications Given in ED Current Medications Medications Dose Ordered Sig/Rasheed Route Start Time Stop Time Status Last Admin Dose Admin Sodium Chloride 100 ml ONCE ONCE IV 09/21/21 14:45 09/21/21 16:11 DC 09/21/21 15:47 100 ML Vital Signs/I&O 09/21/21 14:20 Temp 36.9 Pulse 94 Resp 16 B/P (MAP) 130/85 (100) Pulse Ox 97 O2 Delivery Room Air Progress Progress Note : Progress Note 1. ACUTE ON CHRONIC PANCREATITIS: - CT ABD on 08/18 & 09/16 shows pancreatitis, pancreatic pseudocyst, and increasing bertin-pancreatic edema; report below - CXR today: normal - Pt's diet may hvae worsened his symptoms - Labs:elevated WBC of 18 with a left shift - UA/ UDS unremarkable - NS IVF bolus x 2/ Morphine 2mg iv STAT - Discussed with Dr. Thomas and accepted for admission. We will add thiamine and folic acid to fluids as patient is a recovering alcoholic -Patient will benefit from surgery consult and being n.p.o. and IV fluids and pain control 2. DEHYDRATION: - NS IVF x 2 Diagnostic Imaging Diagonstic Imaging: Xray, CT Plain Films/CT/US/NM/MRI: chest, abdomen Comments [facility]. [place], [place] NAME: VLADISLAVLISETH Franck MED REC#: [id number] PT STATUS: REG ER : 1980 PHYSICIAN: DANE MYLES MD ADMIT DATE: 09/21/21/ER FS Draft Date of Exam:09/21/21 CHEST 1 VIEW AP/PA ONLY PATIENT HISTORY: Abdominal pain. TECHNIQUE: Single frontal view of the chest. COMPARISON: 07/06/2021. FINDINGS: The lung volumes are normal. No focal consolidation is seen. No large pleural effusion or pneumothorax is seen. The cardiomediastinal silhouette is normal in size and contour. No acute osseous abnormality is seen. IMPRESSION: No acute pulmonary abnormality seen. Dictated on workstation # [id number] Dict: 09/21/21 1502 Trans: 09/21/21 1508 [id number] Interpreted by: WALTER MÁRQUEZ MD Electronically signed by: [facility] [place], [place] NAME: LISETH LOOMIS [facility] REC#: [id number] PT STATUS: REG ER : 1980 PHYSICIAN: ANGEL LLANES MD ADMIT DATE: 09/16/21/ER FS Signed Date of Exam:09/16/21 CT ABDOMEN/PELVIS W PROCEDURE: CT abdomen and pelvis with contrast. TECHNIQUE: Multiple contiguous axial images were obtained through the abdomen and pelvis after administration of intravenous contrast. Auto Exposure Controls were utilized during the CT exam to meet ALARA standards for radiation dose reduction. All CT scans use one or more of the following dose optimizing techniques: Automated exposure control, MA and/or KvP adjustment based on patient size and exam type or iterative reconstruction. INDICATION: Epigastric abdominal pain and nausea. History of pancreatitis. COMPARISON: 08/20/2021. FINDINGS: The lung bases are clear. The heart is normal in size. There is no pericardial effusion. The liver demonstrates two wedge-shaped areas of decreased enhancement in the superior right liver, both of which appear similar to 08/18/2021. No new liver lesion is seen. There is a hypodensity in the left lobe, which likely represents a cyst and appears stable. The spleen appears normal. Cholecystectomy clips are noted. There is a cystic lesion at the pancreatic head, which measures 3.2 x 3.1 cm in size. This is stable since the prior study. There is peripancreatic edema about the pancreatic head, as well as wall thickening along the proximal duodenum. There is no ductal dilatation of the pancreas, and no other peripancreatic edema is seen. The adrenal glands appear normal. The kidneys demonstrate no hydronephrosis or enhancing lesions. There are small simple-appearing cysts in the left kidney. The appendix is normal. The bowel loops are nondistended without obstruction. Duodenal findings are described above. No free fluid or free air is seen. There is no lymphadenopathy. The aorta is normal in caliber. No acute osseous abnormality is seen. There is a rim-enhancing heterogeneous lesion at the superior right rectus abdominis muscle measuring 3.4 x 2.1 cm in size on axial imaging, and 3.1 cm craniocaudal. IMPRESSION: 1. Unchanged cystic lesion of the pancreatic head compatible with a pseudocyst. There is peripancreatic edema and duodenal wall thickening consistent with a groove pancreatitis and/or duodenitis. 2. Wedge-shaped perfusion defects in the right lobe of the liver, stable since the prior exam. 3. Rim-enhancing heterogeneous lesion in the superior right rectus abdominis muscle, most likely a small hematoma. Dictated by: Dictated on workstation # [id number] Dict: 09/16/21 1556 Trans: 09/16/21 1651 [id number] Interpreted by: WALTER MÁRQUEZ MD Electronically signed by: WALTER MÁRQUEZ MD 09/16/21 1651 Departure Impression Primary Impression: Acute on chronic pancreatitis Additional Impression: Dehydration Disposition: 30 STILL A PATIENT Condition: Stable Admissions Decision to Admit Reason: Admit from ER (General) Decision to Admit/Date: Sep 21, 2021 Time/Decision to Admit Time: 16:45 Transfer Transfer Reason: Exceeds level of care Time Spoke to Accepting Phy: 17:30 Transfer Progress Notes Will admit patient. Discussed with Dr. Thomas Transfer Facility: [facility] Method of Transfer: EMS Departure-Patient Inst. Referrals: PADMINI CORONADO APRN (PCP) Primary Care Physician DAVID GERBER MD (Family) Primary Care Physician DANE MYLES MD Sep 21, 2021 14:20
[2021-09-21] MEDS ORDERED: HOLD METFORMIN - RECEIVED CONTRAST 20 ML VIAL IV SCH (14:45)
[2021-09-21] MEDS ORDERED: IOHEXOL 350 MG/ML 100 ML (OMNIPAQUE 350) VIAL IV ONE (14:45)
[2021-09-21] MEDS ORDERED: NS 100 ML (IVPB) BAG IV ONE (14:45)
[2021-09-21] MEDS ORDERED: CATHETER FLUSH 10 ML SYR IV PRN (14:45)
[2021-09-21 15:07] LABS: BASOPHILS # (AUTO) 0.1 10^3/uL (0.0-0.1); BASOPHILS % (AUTO) 0 % (0-10); EOSINOPHILS # (AUTO) 0.5 10^3/uL (0.0-0.3); EOSINOPHILS % (AUTO) 3 % (0-10); HEMATOCRIT 44 % (40-54); HEMOGLOBIN 15.6 g/dL (13.3-17.7); LYMPHOCYTES # (AUTO) 4.6 10^3/uL (1.0-4.0); LYMPHOCYTES % (AUTO) 25 % (12-44); MEAN CORPUSCULAR HEMOGLOBIN 31 pg (25-34); MEAN CORPUSCULAR HGB CONC 35 g/dL (32-36); MEAN CORPUSCULAR VOLUME 88 fL (80-99); MEAN PLATELET VOLUME 9.3 fL (9.0-12.2); MONOCYTES % (AUTO) 5 % (0-12); NEUTROPHILS # (AUTO) 12.1 10^3/uL (1.8-7.8); NEUTROPHILS % (AUTO) 66 % (42-75); PLATELET COUNT 362 10^3/uL (130-400); WHITE BLOOD COUNT 18.3 10^3/uL (4.3-11.0)
[2021-09-21] MEDS ORDERED: morphine INJ 10 MG/ML 1ML (SYR OR VIAL) IVP STA ×2 (15:08→17:39)
--- NOTE | 2021-09-21 15:09 | Diagnostic Imaging Report ---
PATIENT HISTORY: Abdominal pain. TECHNIQUE: Single frontal view of the chest. COMPARISON: 07/06/2021. FINDINGS: The lung volumes are normal. No focal consolidation is seen. No large pleural effusion or pneumothorax is seen. The cardiomediastinal silhouette is normal in size and contour. No acute osseous abnormality is seen. IMPRESSION: No acute pulmonary abnormality seen. Dictated by: Dictated on workstation # [id number]
[2021-09-21] MEDS ORDERED: NS IV 1000 ML 1,000 ML IV SCH ×2 (15:15→17:30)
[2021-09-21 15:37] LABS: ALANINE AMINOTRANSFERASE 8 U/L (0-55); ALKALINE PHOSPHATASE 120 U/L (40-136); BILIRUBIN,TOTAL 0.5 MG/DL (0.1-1.0); BUN/CREATININE RATIO 6; CALCIUM 9.8 MG/DL (8.5-10.1); CARBON DIOXIDE 26 MMOL/L (21-32); CHLORIDE 103 MMOL/L (98-107); CREATININE SERUM 0.96 MG/DL (0.60-1.30); GFR ESTIMATED 102; GLUCOSE 119 MG/DL (70-105); MAGNESIUM 1.8 MG/DL (1.6-2.4); POTASSIUM 3.5 MMOL/L (3.6-5.0); SODIUM 140 MMOL/L (135-145)
[2021-09-21 15:38] LABS: ALBUMIN 4.2 GM/DL (3.2-4.5); LIPASE 87 U/L (8-78); TOTAL PROTEIN 7.3 GM/DL (6.4-8.2)
[2021-09-21 16:09] LABS: BILIRUBIN,URINE NEGATIVE (NEGATIVE); CLARITY,URINE SL CLOUDY; COLOR,URINE ORANGE; GLUCOSE, URINE (UA) NEGATIVE (NEGATIVE); KETONES,URINE NEGATIVE (NEGATIVE); LEUKOCYTE ESTERASE ,URINE NEGATIVE (NEGATIVE); NITRITE,URINE NEGATIVE (NEGATIVE); PROTEIN,URINE NEGATIVE (NEGATIVE)
[2021-09-21 16:44] LABS: BACTERIA,URINE TRACE /HPF; CALCIUM OXALATE CRYSTALS,UR FEW /LPF; HYALINE CASTS, URINE >50 /LPF; RBC,URINE 0-2 /HPF
[2021-09-21 16:46] LABS: AMPHETAMINE SCREEN, URINE NEGATIVE (NEGATIVE); BARBITURATE SCREEN URINE NEGATIVE (NEGATIVE); BENZODIAZEPINES SCREEN URINE NEGATIVE (NEGATIVE); CANNABINOID SCREEN, URINE POSITIVE (NEGATIVE); COCAINE SCREEN URINE NEGATIVE (NEGATIVE); METHADONE STAT NEGATIVE (NEGATIVE); OPIATE SCREEN URINE POSITIVE (NEGATIVE); OXYCODONE STAT POSITIVE (NEGATIVE); PROPOXYPHENE STAT NEGATIVE (NEGATIVE); TRICYCLIC ANTIDEPRESSANTS SCRE NEGATIVE (NEGATIVE)
[2021-09-21] MEDS ORDERED: metroNIDAZOLE 500MG/100ML IVPB 100 ML IV ONE (17:30)
[2021-09-21] MEDS ORDERED: cefTRIAXone 1 GM PRE-MIX 50 ML IV ONE (17:30)
[2021-09-21] MEDS ORDERED: THIAMINE INJECTION 100 MG in NS (IVPB) 50 ML IV STA (17:37)
[2021-09-21] MEDS ORDERED: FOLIC ACID 1 MG TAB PO ONE (17:45)
[2021-09-21] MEDS ORDERED: ONDANSETRON 4 MG/2 ML (SDV) Z0FRAN IVP ONE (17:45)
[2021-09-21] MEDS ORDERED: fentaNYL INJ 100 MCG/2 ML AMP IVP PRN (20:30)
[2021-09-21] MEDS ORDERED: NS IV 1000 ML 1,000 ML ONE (20:49)
[2021-09-21] MEDS: NS IV 1000 ML 1,000 ML IV SCH (20:54)
[2021-09-21] MEDS ORDERED: fentaNYL INJ 100 MCG/2 ML AMP ONE (21:10)
[2021-09-21] MEDS ORDERED: WARF-47 PO (22:06)
[2021-09-21 23:05] VITALS: BP 136/73
[2021-09-21] MEDS: fentaNYL INJ 100 MCG/2 ML AMP IVP PRN (23:24)
[2021-09-22] MEDS: fentaNYL INJ 100 MCG/2 ML AMP IVP PRN ×6 (01:25→20:45)
[2021-09-22 03:50] VITALS: BP 105/59
[2021-09-22] MEDS: NS IV 1000 ML 1,000 ML IV SCH ×3 (03:53→16:31)
[2021-09-22 06:43] LABS: BASOPHILS # (AUTO) 0.1 10^3/uL (0.0-0.1); BASOPHILS % (AUTO) 0 % (0-10); EOSINOPHILS # (AUTO) 0.4 10^3/uL (0.0-0.3); EOSINOPHILS % (AUTO) 3 % (0-10); HEMATOCRIT 37 % (40-54); HEMOGLOBIN 12.7 g/dL (13.3-17.7); LYMPHOCYTES # (AUTO) 5.7 10^3/uL (1.0-4.0); LYMPHOCYTES % (AUTO) 37 % (12-44); MEAN CORPUSCULAR HEMOGLOBIN 31 pg (25-34); MEAN CORPUSCULAR HGB CONC 34 g/dL (32-36); MEAN CORPUSCULAR VOLUME 91 fL (80-99); MEAN PLATELET VOLUME 10.1 fL (9.0-12.2); MONOCYTES % (AUTO) 6 % (0-12); NEUTROPHILS # (AUTO) 8.2 10^3/uL (1.8-7.8); NEUTROPHILS % (AUTO) 54 % (42-75); PLATELET COUNT 305 10^3/uL (130-400); WHITE BLOOD COUNT 15.4 10^3/uL (4.3-11.0)
[2021-09-22 07:01] LABS: ALBUMIN 3.2 GM/DL (3.2-4.5); POTASSIUM 3.7 MMOL/L (3.6-5.0)
[2021-09-22 07:02] LABS: CALCIUM 8.8 MG/DL (8.5-10.1)
[2021-09-22 07:04] LABS: TOTAL PROTEIN 5.5 GM/DL (6.4-8.2)
[2021-09-22 07:05] LABS: BILIRUBIN,TOTAL 0.5 MG/DL (0.1-1.0)
[2021-09-22 07:07] LABS: CREATININE SERUM 0.79 MG/DL (0.60-1.30)
[2021-09-22 07:21] LABS: EOSINOPHILS % (MANUAL) 1 %; LYMPHOCYTES % (MANUAL) 28 %; MONOCYTES % (MANUAL) 4 %; NEUTROPHILS % (MANUAL) 67 %; RBC MORPH NORMAL
[2021-09-22 07:42] VITALS: BP 115/62
[2021-09-22] MEDS: D5 NS 1000 ML IV SOLUTION 1,000 ML IV SCH ×2 (08:11→15:39)
--- NOTE | 2021-09-22 11:30 | History & Physical ---
GABBYDEANNE C 09/22/21 1130: History of Present Illness History of Present Illness Reason for visit/HPI Ranjit Aguilar, a 41 yo white male, with a history of myocarditis, pancreatitis, and pancreatic pseudocyst is admitted with a chief complaint of epigastric pain. Pt reports he has been having a dull ache in his epigastric region since Monday (09/18/2021) which increased in intensity to a 8-9/10 pain on Monday (09/21/2021). Pt drove himself to the ED in [place]. He was then transferred to [facility]. Today pt feels his pain is well controlled with medication and fluids. He is experiencing some nausea. Pt has been NPO. Ranjit sees Fadumo Lund APRN for primary care. 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 / Smoker 1ppd since ago 12 - denies vaping or chewing tobacco / Occasional marijuana use Date of Admission Sep 21, 2021 at 20:03 Date Seen by a Provider: Sep 22, 2021 Time Seen by a Provider: 08:54 I consulted on this patient on 09/22/21 11:18 Attending Physician Fadumo Lund Aprn Admitting Physician Admitting Physician: Sky Weiss MD Attending Physician: Sky Weiss MD Consult Allergies and Home Medications Allergies Uncoded Allergies: pcn (Allergy, Unknown, 01/29/21) Patient Home Medication List Home Medication List Reviewed: Yes Acetaminophen (Tylenol Extra Strength) 500 Mg Tablet, 1,000 MG PO Q8H PRN for PAIN-MILD (1-4), (Reported) Entered as Reported by: YOLANDA JARA on 09/22/211513 Last Action: Reviewed Docusate Sodium (Docusate Sodium) 100 Mg Capsule, 100 MG PO DAILY, (Reported) Entered as Reported by: YOLANDA JARA on 09/22/211513 Last Action: Reviewed Ondansetron (Ondansetron Odt) 8 Mg Tab.rapdis, 8 MG PO Q8H PRN for NAUSEA/VOMITING-1ST LINE, (Reported) Entered as Reported by: YOLANDA JARA on 09/22/211513 Last Action: Reviewed Oxycodone HCl (Oxycodone HCl) 5 Mg Tablet, 5 MG PO Q6H PRN for PAIN-SEVERE (8- 10), (Reported) Entered as Reported by: YOLANDA JARA on 09/22/211513 Last Action: Reviewed Pantoprazole Sodium (Pantoprazole Sodium) 40 Mg Tablet.dr, 40 MG PO DAILY, (Reported) Entered as Reported by: YOLANDA JARA on 09/22/211513 Last Action: Reviewed Sucralfate (Carafate) 1 Gram Tablet, 1 GM PO HS, (Reported) Entered as Reported by: YOLANDA JARA on 09/22/211513 Last Action: Reviewed Sucralfate (Carafate) 1 Gram Tablet, 1 GM PO TIDAC PRN for ULCER FLARE, (Reported) Entered as Reported by: YOLANDA JARA on 09/22/211513 Last Action: Reviewed Warfarin Sodium (Warfarin Sodium) 1 Mg Tablet, 2 MG PO HS, (Reported) Entered as Reported by: YOLANDA JARA on 09/22/211513 Last Action: Reviewed Discontinued Medications Hydrocodone/Acetaminophen (Hydrocodone-Acetamin 5-325 mg) 1 Each Tablet, 1 TAB PO Q4H PRN for PAIN-MODERATE (5-7) Discontinued Reason: No Longer Taking Prescribed by: ORLANDO CARBALLO on 01/29/21 1635 Last Action: Discontinued Ondansetron (Ondansetron Odt) 4 Mg Tab.rapdis, 4 MG PO Q6H PRN for NAUSEA/VOMITING Discontinued Reason: No Longer Taking Prescribed by: ORLANDO CARBALLO on 01/29/21 1635 Last Action: Discontinued Oxycodone HCl (Oxycodone HCl) 5 Mg Tablet, 5 MG PO Q6H PRN for PAIN-SEVERE (8- 10) Discontinued Reason: No Longer Taking Prescribed by: FRANCISCO JAVIER CHIRINOS on 07/29/21 0469 Last Action: Discontinued Oxycodone HCl (Oxycodone HCl) 5 Mg Tablet, 5 MG PO Q6H PRN for PAIN-SEVERE (8- 10) Discontinued Reason: No Longer Taking Prescribed by: FRANCISCO JAVIER CHIRINOS on 09/19/21 1701 Last Action: Discontinued Sucralfate (Carafate) 1 Gram Tablet, 1 GM PO ACHS Discontinued Reason: No Longer Taking Prescribed by: ORLANDO CARBALLO on 08/24/21 1120 Last Action: Discontinued Warfarin Sodium (Warfarin Sodium) 2 Mg Tablet, 2 MG PO HS Discontinued Reason: No Longer Taking Prescribed by: PARISH JEFFERS on 09/21/21 2206 Last Action: Discontinued Past Dtnoobl-Rpwtvs-Kgjfep Hx Patient Social History Tobacco Use?: Yes Tobacco type used: Cigarettes Smoking Status: Current Everyday Smoker Smokeless Tobacco Frequency: Current Everyday User, Current Someday User Use of E-Cig and/or Vaping dev: No Substance use?: Yes Substance type: Marijuana Substance frequency: Several times a month Alcohol Use?: No (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) Alcohol Frequency: Once in a while Additional Alcohol Comments: 80 days sober Pt feels they are or have been: No Immunizations Up To Date First/Initial COVID19 Vaccinat: Not currently Second COVID19 Vaccination Aris: Not currently Tetanus Booster (TDap): Unknown Current Status Advance Directives: No Communicates: Verbally Primary Language: Guyanese Preferred Spoken Language: Guyanese Is interpretation needed?: No Implanted or Applied Medical D: None Past Medical History Surgeries: Gallbladder Review of Systems Constitutional: no symptoms reported EENTM: no symptoms reported Respiratory: no symptoms reported Cardiovascular: no symptoms reported Gastrointestinal: abdominal pain (RUQ), nausea Genitourinary: no symptoms reported Musculoskeletal: no symptoms reported Skin: no symptoms reported Psychiatric/Neurological: No Symptoms Reported Physical Exam Vital Signs Vital Signs - First Documented 09/21/21 14:20 Temp 36.9 Pulse 94 Resp 16 B/P (MAP) 130/85 (100) Pulse Ox 97 O2 Delivery Room Air Capillary Refill : Less Than 3 Seconds Height, Weight, BMI Height: '" Weight: lbs. oz. kg; 17.97 BMI Method: General Appearance: No Apparent Distress Respiratory: Chest Non Tender, Lungs Clear, Normal Breath Sounds, No Respirat ory Distress Cardiovascular: Regular Rate, Rhythm, No JVD, No Murmur, Normal Peripheral Pulses Gastrointestinal: Normal Bowel Sounds, No Organomegaly, Tenderness Extremity: Normal Capillary Refill, Normal Inspection, Normal Range of Motion, Non Tender, No Pedal Edema Neurologic/Psychiatric: Alert, Oriented x3 Skin: Normal Color, Warm/Dry Assessment/Plan Assessment and Plan Assessment: Chronic pancreatitis Pancreatic pseudocyst Plan: Continue with fluids Start clear liquids Reassess dehydration status Admission Diagnosis Admission Status: Inpatient Order (span 2 midnights) Reason for Inpatient Admission: Chronic pancreatitis Supervisory-Addendum Brief Verification & Attestation Participated in pt care: history, physical Personally performed: exam, history Care discussed with: Medical Student SKY WEISS MD 09/22/212046: Allergies and Home Medications Allergies Uncoded Allergies: pcn (Allergy, Unknown, 01/29/21) Patient Home Medication List Home Medication List Reviewed: Yes Acetaminophen (Tylenol Extra Strength) 500 Mg Tablet, 1,000 MG PO Q8H PRN for PAIN-MILD (1-4), (Reported) Entered as Reported by: YOLANDA JARA on 09/22/211513 Last Action: Reviewed Docusate Sodium (Docusate Sodium) 100 Mg Capsule, 100 MG PO DAILY, (Reported) Entered as Reported by: YOLANDA JARA on 09/22/211513 Last Action: Reviewed Ondansetron (Ondansetron Odt) 8 Mg Tab.rapdis, 8 MG PO Q8H PRN for NAUSEA/VOMITING-1ST LINE, (Reported) Entered as Reported by: YOLANDA JARA on 09/22/211513 Last Action: Reviewed Oxycodone HCl (Oxycodone HCl) 5 Mg Tablet, 5 MG PO Q6H PRN for PAIN-SEVERE (8- 10), (Reported) Entered as Reported by: YOLANDA JARA on 09/22/211513 Last Action: Reviewed Pantoprazole Sodium (Pantoprazole Sodium) 40 Mg Tablet.dr, 40 MG PO DAILY, (Reported) Entered as Reported by: YOLANDA JARA on 09/22/211513 Last Action: Reviewed Sucralfate (Carafate) 1 Gram Tablet, 1 GM PO HS, (Reported) Entered as Reported by: YOLANDA JARA on 09/22/211513 Last Action: Reviewed Sucralfate (Carafate) 1 Gram Tablet, 1 GM PO TIDAC PRN for ULCER FLARE, (Reported) Entered as Reported by: YOLANDA JARA on 8/3/22 1514 Last Action: Reviewed Warfarin Sodium (Warfarin Sodium) 1 Mg Tablet, 2 MG PO HS, (Reported) Entered as Reported by: YOLANDA JARA on 09/22/21 1514 Last Action: Reviewed Discontinued Medications Hydrocodone/Acetaminophen (Hydrocodone-Acetamin 5-325 mg) 1 Each Tablet, 1 TAB PO Q4H PRN for PAIN-MODERATE (5-7) Discontinued Reason: No Longer Taking Prescribed by: ORLANDO CARBALLO on 01/29/21 1635 Last Action: Discontinued Ondansetron (Ondansetron Odt) 4 Mg Tab.rapdis, 4 MG PO Q6H PRN for NAUSEA/VOMITING Discontinued Reason: No Longer Taking Prescribed by: ORLANDO CARBALLO on 01/29/21 1635 Last Action: Discontinued Oxycodone HCl (Oxycodone HCl) 5 Mg Tablet, 5 MG PO Q6H PRN for PAIN-SEVERE (8- 10) Discontinued Reason: No Longer Taking Prescribed by: FRANCISCO JAVIER CHIRINOS on 07/29/21 1458 Last Action: Discontinued Oxycodone HCl (Oxycodone HCl) 5 Mg Tablet, 5 MG PO Q6H PRN for PAIN-SEVERE (8- 10) Discontinued Reason: No Longer Taking Prescribed by: FRANCISCO JAVIER CHIRINOS on 09/19/21 1701 Last Action: Discontinued Sucralfate (Carafate) 1 Gram Tablet, 1 GM PO ACHS Discontinued Reason: No Longer Taking Prescribed by: ORLANDO CARBALLO on 08/24/21 1120 Last Action: Discontinued Warfarin Sodium (Warfarin Sodium) 2 Mg Tablet, 2 MG PO HS Discontinued Reason: No Longer Taking Prescribed by: PARISH JEFFERS on 09/21/21 2206 Last Action: Discontinued Past Svldzjs-Tdieyo-Fhdwbs Hx Patient Social History Smokeless Tobacco Frequency: Current Everyday User Review of Systems Constitutional: malaise EENTM: no symptoms reported Respiratory: no symptoms reported Cardiovascular: no symptoms reported Gastrointestinal: abdominal pain (RUQ), loss of appetite, nausea, vomiting Genitourinary: no symptoms reported Musculoskeletal: back pain Skin: no symptoms reported Psychiatric/Neurological: No Symptoms Reported Physical Exam General Appearance: No Apparent Distress, WD/WN HEENT: PERRL/EOMI Respiratory: Chest Non Tender, Lungs Clear, Normal Breath Sounds, No Accessory Muscle Use, No Respiratory Distress Cardiovascular: Regular Rate, Rhythm, No Murmur, Normal Peripheral Pulses Gastrointestinal: Soft, Tenderness (epigastric, no rebound or guarding) Extremity: Normal Capillary Refill, Normal Range of Motion, Non Tender, No Calf Tenderness, No Pedal Edema Neurologic/Psychiatric: Alert, Oriented x3, Normal Mood/Affect Skin: Normal Color, Warm/Dry Lymphatic: No Adenopathy Supervisory-Addendum Brief Verification & Attestation Participated in pt care: history, physical Personally performed: exam, history Care discussed with: Medical Student Procedures: n/a Verification and Attestation of Medical Student E/M Service A medical student performed and documented this service in my presence. I reviewed and verified all information documented by the medical student and made modifications to such information, when appropriate. I personally performed the physical exam and medical decision making. 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
[2021-09-22 11:51] VITALS: BP 138/65
[2021-09-22] MEDS ORDERED: ACET-2267 PO (15:14)
[2021-09-22] MEDS ORDERED: OXYC5TAB PO (15:14)
[2021-09-22] MEDS ORDERED: DOCU100C37 PO (15:14)
[2021-09-22] MEDS ORDERED: WRF1T PO (15:14)
[2021-09-22] MEDS ORDERED: SUCR1TAB36 PO ×2 (15:14)
[2021-09-22] MEDS ORDERED: PANT40TA52 PO (15:14)
[2021-09-22] MEDS ORDERED: ONDA8TAB13 PO (15:14)
[2021-09-22 16:22] VITALS: BP 118/76
[2021-09-22 20:03] VITALS: BP 113/75
[2021-09-23 00:35] VITALS: BP 149/70
[2021-09-23] MEDS: fentaNYL INJ 100 MCG/2 ML AMP IVP PRN ×3 (00:35→14:25)
[2021-09-23] MEDS: D5 NS 1000 ML IV SOLUTION 1,000 ML IV SCH ×2 (00:35→09:07)
[2021-09-23 04:08] VITALS: BP 107/58
[2021-09-23 07:47] VITALS: BP 112/61
[2021-09-23 08:09] LABS: BASOPHILS % (AUTO) 0 % (0-10); EOSINOPHILS # (AUTO) 0.3 10^3/uL (0.0-0.3); EOSINOPHILS % (AUTO) 3 % (0-10); HEMATOCRIT 36 % (40-54); HEMOGLOBIN 12.5 g/dL (13.3-17.7); LYMPHOCYTES # (AUTO) 3.6 10^3/uL (1.0-4.0); LYMPHOCYTES % (AUTO) 35 % (12-44); MEAN CORPUSCULAR HEMOGLOBIN 32 pg (25-34); MEAN CORPUSCULAR HGB CONC 35 g/dL (32-36); MEAN CORPUSCULAR VOLUME 91 fL (80-99); MEAN PLATELET VOLUME 9.8 fL (9.0-12.2); MONOCYTES # (AUTO) 0.7 10^3/uL (0.0-1.0); MONOCYTES % (AUTO) 7 % (0-12); NEUTROPHILS # (AUTO) 5.8 10^3/uL (1.8-7.8); NEUTROPHILS % (AUTO) 56 % (42-75); PLATELET COUNT 282 10^3/uL (130-400); WHITE BLOOD COUNT 10.5 10^3/uL (4.3-11.0)
[2021-09-23 08:17] LABS: ALBUMIN 3.1 GM/DL (3.2-4.5); POTASSIUM 3.5 MMOL/L (3.6-5.0)
[2021-09-23 08:18] LABS: CALCIUM 8.6 MG/DL (8.5-10.1)
[2021-09-23 08:19] LABS: TOTAL PROTEIN 5.1 GM/DL (6.4-8.2)
[2021-09-23 08:21] LABS: BILIRUBIN,TOTAL 0.4 MG/DL (0.1-1.0)
[2021-09-23 08:23] LABS: CREATININE SERUM 0.77 MG/DL (0.60-1.30)
[2021-09-23 11:13] VITALS: BP 108/68
--- NOTE | 2021-09-23 12:29 | Progress Note ---
Subjective Date Seen by a Provider: Sep 23, 2021 Time Seen by a Provider: 08:39 Subjective/Events-last exam Ranjit Aguilar, 41 yo M, admitted for acute on chronic pancreatitis states today that he is feeling "okay" and well enough to go home. Pt has tolerated clear liquid diet well. He is no longer nauseous. He reports having a bowel movement yesterday. He does have some pain in his RUQ, LUQ, and back but he states this is typical for him and the severity is much less than when he came to the hospital 2 days ago. Review of Systems Gastrointestinal: Abdominal Pain (RUQ and LUQ) Musculoskeletal: back pain Focused Exam Lactate Level 09/21/21 15:45: Lactic Acid Level 2.46*H 09/21/21 17:25: Lactic Acid Level 0.91 Respiratory: Chest Non Tender, Lungs Clear, Normal Breath Sounds, No Accessory Muscle Use, No Respiratory Distress Cardiovascular: Regular Rate, Rhythm, No Gallop, No Murmur, Normal Peripheral Pulses Capillary Refill: Less Than 3 Seconds Skin: normal color, warm/dry Objective Exam Last Set of Vital Signs Vital Signs Date Time Temp Pulse Resp B/P (MAP) Pulse Ox O2 Delivery O2 Flow Rate FiO2 09/23/21 11:13 36.8 68 18 108/68 (81) 100 Room Air Capillary Refill : Less Than 3 Seconds I&O Intake and Output 09/23/21 00:00 Intake Total 2986 ml Balance 2986 ml Intake Oral 1285 ml IV Total 1701 ml # Voids 10 # Bowel Movements 1 General: Alert, Oriented X3 Lungs: Clear to Auscultation, Normal Air Movement Heart: Regular Rate, Normal S1, Normal S2, No Murmurs Abdomen: Soft, Other (Tender to palpation in RUQ and LUQ) Extremities: No Edema, Normal Pulses, No Tenderness/Swelling Neuro: Normal Speech, Strength at 5/5 X4 Ext Psych/Mental Status: Mental Status NL, Mood NL Results Lab Laboratory Tests 09/22/21 17:02: Glucometer 103 09/23/21 07:16: Glucometer 130H 09/23/21 07:57: White Blood Count 10.5, Red Blood Count 3.97L, Hemoglobin 12.5L, Hematocrit 36L, Mean Corpuscular Volume 91, Mean Corpuscular Hemoglobin 32, Mean Corpuscular Hemoglobin Concent 35, Red Cell Distribution Width 12.1, Platelet Count 282, Mean Platelet Volume 9.8, Immature Granulocyte % (Auto) 0, Neutrophils (%) (Auto) 56, Lymphocytes (%) (Auto) 35, Monocytes (%) (Auto) 7, Eosinophils (%) (Auto) 3, Basophils (%) (Auto) 0, Neutrophils # (Auto) 5.8, Lymphocytes # (Auto) 3.6, Monocytes # (Auto) 0.7, Eosinophils # (Auto) 0.3, Basophils # (Auto) 0.0, Immature Granulocyte # (Auto) 0.0, Sodium Level 142, Potassium Level 3.5L, Chloride Level 112H, Carbon Dioxide Level 23, Anion Gap 7, Blood Urea Nitrogen 4L, Creatinine 0.77, Estimat Glomerular Filtration Rate 116, BUN/Creatinine Ratio 5, Glucose Level 118H, Calcium Level 8.6, Corrected Calcium 9.3, Total Bilirubin 0.4, Aspartate Amino Transf (AST/SGOT) 11, Alanine Aminotransferase (ALT/SGPT) 11, Alkaline Phosphatase 82, Total Protein 5.1L, Albumin 3.1L Microbiology 09/21/21 Blood Culture - Preliminary, Resulted No growth Assessment/Plan Assessment/Plan Assess & Plan/Chief Complaint Assessment: Chronic Pancreatitis Pancreatic pseudocyst Dehydration Plan: Discontinue IV fluids Transition pain medication to PO. Advance pt diet from clear liquid. If tolerated, consider for discharge. Final Diagnosis Acute on Chronic Pancreatitis Diagnosis/Problems Diagnosis/Problems (1) Dehydration Status: Acute (2) Pancreatitis, acute Status: Acute (3) Pseudocyst of pancreas Status: Acute Clinical Quality Measures Admission Status Admission Dx Assessment: Chronic pancreatitis Pancreatic pseudocyst Plan: Continue with fluids Start clear liquids Reassess dehydration status DEANNE PIERRE Sep 23, 2021 12:29
--- NOTE | 2021-09-23 14:39 | Discharge Summary ---
Diagnosis/Chief Complaint Date of Admission Sep 21, 2021 at 20:03 Date of Discharge Discharge Summary-Simple/Stand Discharge Physical Examination Allergies: Uncoded Allergies: pcn (Allergy, Unknown, 01/29/21) Vitals & I&Os Vital Sign - Last 12Hours Date Time Temp Pulse Resp B/P (MAP) Pulse Ox O2 Delivery O2 Flow Rate FiO2 09/23/21 11:13 36.8 68 18 108/68 (81) 100 Room Air Intake and Output 09/23/21 00:00 Intake Total 2285 ml Balance 2285 ml Hospital Course See final discharge diagnosis. Discharge Instructions to patient/family Please see electronic discharge instructions given to patient. Discharge Medications Reviewed and agree with Discharge Medication list on patient's Discharge Instruction sheet Clinical Quality Measures Admission Status Admission Dx SKY WEISS MD Sep 23, 2021 14:39
--- NOTE | 2021-09-23 14:41 | Discharge Summary ---
Discharge [facility] Reconcile Patient Problems Problems Reviewed?: Yes Discharge Medications New, Converted or Re-Newed RX: Transmitted to Pharmacy Continued Medications: Acetaminophen (Tylenol Extra Strength) 500 Mg Tablet 1000 MG PO Q8H PRN for PAIN-MILD (1-4), TAB Docusate Sodium (Docusate Sodium) 100 Mg Capsule 100 MG PO DAILY, CAP Ondansetron (Ondansetron Odt) 8 Mg Tab.rapdis 8 MG PO Q8H PRN for NAUSEA/VOMITING-1ST LINE, TAB Oxycodone HCl (Oxycodone HCl) 5 Mg Tablet 5 MG PO Q6H PRN for PAIN-SEVERE (8-10), TAB Pantoprazole Sodium (Pantoprazole Sodium) 40 Mg Tablet.dr 40 MG PO DAILY, TAB Sucralfate (Carafate) 1 Gram Tablet 1 GM PO HS, TAB Sucralfate (Carafate) 1 Gram Tablet 1 GM PO TIDAC PRN for ULCER FLARE, TAB Warfarin Sodium (Warfarin Sodium) 1 Mg Tablet 2 MG PO HS, TAB TAKES 2 (1MG) TABS Patient Instructions Goal/Follow Up Appt: F/u 1-2 with PCP Activity & Diet Discharge Diet: Regular Diet, Avoid Fatty Foods Activity as Tolerated: Yes SKY WEISS MD Sep 23, 2021 14:41
[2021-09-23 16:12] VITALS: BP 108/68
== END 2021-09-23 16:05 | disposition home or self-care (01) | DRG 439 ==
LOC: EDUNIT# 14:01 → ER FS 14:02 → 4TH 20:03
PROVIDERS: ADMIT Family Medicine; ATTEND Family Medicine
DX: K85.90 Acute pancreatitis without necrosis or infection, unspecified (principal); K86.3 Pseudocyst of pancreas; K86.1 Other chronic pancreatitis; E86.0 Dehydration; Z79.01 Long term (current) use of anticoagulants; F17.210 Nicotine dependence, cigarettes, uncomplicated; F12.90 Cannabis use, unspecified, uncomplicated
CPT/HCPCS: 36415; 71045; 80053; 80306; 80320; 81000; 82947; 83605; 83690; 83735; 84484; 85007; 85025; 85027; 87040

== ENCOUNTER 2021-12-16 17:45 | Inpatient (IN) | payer SELFPAY ==
[~2021-12-16] VITALS: Ht 172.7 cm; Wt 57.6 kg
[~2021-12-16 17:45] MED LIST changes: +ACET-2267 PO; +DOCU100C37 PO; +ONDA8TAB13 PO; +PANT40TA52 PO; +WARF-47 PO; +WRF1T PO
[2021-12-16] MEDS ORDERED: LACTATED RINGERS 1,000 ML IV STA (17:49)
[2021-12-16] MEDS ORDERED: morphine INJ 10 MG/ML 1ML (SYR OR VIAL) IVP STA (17:49)
[2021-12-16] MEDS ORDERED: ONDANSETRON 4 MG/2 ML (SDV) Z0FRAN IVP ONE (18:00)
[2021-12-16 18:02] LABS: BASOPHILS # (AUTO) 0.1 10^3/uL (0.0-0.1); BASOPHILS % (AUTO) 0 % (0-10); EOSINOPHILS # (AUTO) 0.2 10^3/uL (0.0-0.3); EOSINOPHILS % (AUTO) 1 % (0-10); HEMATOCRIT 45 % (40-54); HEMOGLOBIN 15.8 g/dL (13.3-17.7); LYMPHOCYTES # (AUTO) 4.3 10^3/uL (1.0-4.0); LYMPHOCYTES % (AUTO) 16 % (12-44); MEAN CORPUSCULAR HEMOGLOBIN 31 pg (25-34); MEAN CORPUSCULAR HGB CONC 35 g/dL (32-36); MEAN CORPUSCULAR VOLUME 88 fL (80-99); MEAN PLATELET VOLUME 8.8 fL (9.0-12.2); MONOCYTES # (AUTO) 1.4 10^3/uL (0.0-1.0); MONOCYTES % (AUTO) 5 % (0-12); NEUTROPHILS # (AUTO) 20.6 10^3/uL (1.8-7.8); NEUTROPHILS % (AUTO) 77 % (42-75); PLATELET COUNT 392 10^3/uL (130-400); WHITE BLOOD COUNT 26.8 10^3/uL (4.3-11.0)
--- NOTE | 2021-12-16 18:09 | ED Abdominal Pain ---
General Chief Complaint: Abdominal/GI Problems Stated Complaint: ABD/BACK/CHEST PAIN Source of Information: Patient Exam Limitations: No Limitations History of Present Illness Date Seen by Provider: Dec 16, 2021 Time Seen by Provider: 17:46 Initial Comments 41-year-old male with past medical history of chronic pancreatitis and previous alcohol use disorder (sober for over 100 days) coming in due to epigastric pain. The pain is severe, sharp, constant, goes through to his back. He states it feels similar to his previous episodes of pancreatitis. This most recent episode started roughly 4 hours prior to arrival. He tried his home oxycodone which he was unable to keep down due to nausea. Denies any fever, diarrhea, severe chest pain, shortness of breath, weakness, numbness, rash, or any other concerns. Allergies and Home Medications Allergies Uncoded Allergies: pcn (Allergy, Unknown, 01/29/21) Patient Home Medication List Home Medication List Reviewed: Yes Acetaminophen (Tylenol Extra Strength) 500 Mg Tablet, 1,000 MG PO Q8H PRN for PAIN-MILD (1-4), (Reported) Entered as Reported by: YOLANDA JARA on 09/22/211513 Docusate Sodium (Docusate Sodium) 100 Mg Capsule, 100 MG PO DAILY, (Reported) Entered as Reported by: YOLANDA JARA on 09/22/211513 Ondansetron (Ondansetron Odt) 8 Mg Tab.rapdis, 8 MG PO Q8H PRN for NAUSEA/VOMITING-1ST LINE, (Reported) Entered as Reported by: YOLANDA JARA on 09/22/211513 Oxycodone HCl (Oxycodone HCl) 5 Mg Tablet, 5 MG PO Q6H PRN for PAIN-SEVERE (8- 10), (Reported) Entered as Reported by: YOLANDA JARA on 09/22/211513 Pantoprazole Sodium (Pantoprazole Sodium) 40 Mg Tablet.dr, 40 MG PO DAILY, (Reported) Entered as Reported by: YOLANDA JARA on 09/22/211513 Sucralfate (Carafate) 1 Gram Tablet, 1 GM PO HS, (Reported) Entered as Reported by: YOLANDA JARA on 09/22/211513 Sucralfate (Carafate) 1 Gram Tablet, 1 GM PO TIDAC PRN for ULCER FLARE, (Reported) Entered as Reported by: YOLANDA JARA on 09/22/211513 Warfarin Sodium (Warfarin Sodium) 1 Mg Tablet, 2 MG PO HS, (Reported) Entered as Reported by: YOLANDA JARA on 09/22/211513 Review of Systems Review of Systems Constitutional: No fever EENTM: No Symptoms Reported Respiratory: No Symptoms Reported Cardiovascular: No Symptoms Reported Gastrointestinal: See HPI Genitourinary: No Symptoms Reported Musculoskeletal: no symptoms reported Skin: no symptoms reported Psychiatric/Neurological: No Symptoms Reported Endocrine: No Symptoms Reported Hematologic/Lymphatic: No Symptoms Reported All Other Systems Reviewed Negative Unless Noted: Yes Past Yywohhx-Ioigpn-Blfehl Hx Patient Social History Tobacco Use?: Yes Tobacco type used: Cigarettes Smoking Status: Current Everyday Smoker Use of E-Cig and/or Vaping dev: No Substance use?: Yes Substance type: Marijuana Additional substance use comme: last used yesterday Substance frequency: Once in a while Alcohol Use?: No Pt feels they are or have been: No Immunizations Up To Date First/Initial COVID19 Vaccinat: Not currently Second COVID19 Vaccination Aris: Not currently Third COVID19 Vaccination Date: Not currently Past Medical History Surgery/Hospitalization HX: FLORI; Chronic Pancreatitis Surgeries: No Gallbladder Physical Exam Vital Signs Vital Signs - First Documented 12/16/21 17:45 Temp 36.1 Pulse 84 Resp 16 B/P (MAP) 146/88 (107) Pulse Ox 100 O2 Delivery Room Air Capillary Refill : Less Than 3 Seconds Height/Weight/BMI Height: '" Weight: lbs. oz. kg; 17.97 BMI Method: General Appearance: WD/WN, moderate distress HEENT: PERRL/EOMI, normal ENT inspection, pharynx normal Neck: non-tender, full range of motion, supple, normal inspection Respiratory: chest non-tender, lungs clear, normal breath sounds, no respiratory distress, no accessory muscle use Cardiovascular: regular rate, rhythm, no edema, no murmur Gastrointestinal: normal bowel sounds, soft; No distended, No guarding, No rebound; tenderness Extremities: normal range of motion, non-tender, normal inspection, no pedal edema, no calf tenderness, normal capillary refill Back: normal inspection, no CVA tenderness Neurologic/Psychiatric: no motor/sensory deficits, alert, normal mood/affect Skin: normal color, warm/dry Lymphatic: no adenopathy Focused Exam Lactate Level 12/16/21 17:58: Lactic Acid Level 1.94 Lactic Acid Level Laboratory Tests Test 12/16/21 17:58 Lactic Acid Level 1.94 MMOL/L (0.50-2.00) Progress/Results/Core Measures Results/Orders Lab Results Laboratory Tests Test 12/16/21 17:58 Range/Units White Blood Count 26.8 H 4.3-11.0 10^3/uL Red Blood Count 5.05 4.30-5.52 10^6/uL Hemoglobin 15.8 13.3-17.7 g/dL Hematocrit 45 40-54 % Mean Corpuscular Volume 88 80-99 fL Mean Corpuscular Hemoglobin 31 25-34 pg Mean Corpuscular Hemoglobin Concent 35 32-36 g/dL Red Cell Distribution Width 12.2 10.0-14.5 % Platelet Count 392 130-400 10^3/uL Mean Platelet Volume 8.8 L 9.0-12.2 fL Immature Granulocyte % (Auto) 1 % Neutrophils (%) (Auto) 77 H 42-75 % Lymphocytes (%) (Auto) 16 12-44 % Monocytes (%) (Auto) 5 0-12 % Eosinophils (%) (Auto) 1 0-10 % Basophils (%) (Auto) 0 0-10 % Neutrophils # (Auto) 20.6 H 1.8-7.8 10^3/uL Lymphocytes # (Auto) 4.3 H 1.0-4.0 10^3/uL Monocytes # (Auto) 1.4 H 0.0-1.0 10^3/uL Eosinophils # (Auto) 0.2 0.0-0.3 10^3/uL Basophils # (Auto) 0.1 0.0-0.1 10^3/uL Immature Granulocyte # (Auto) 0.2 H 0.0-0.1 10^3/uL Neutrophils % (Manual) 74 % Lymphocytes % (Manual) 17 % Monocytes % (Manual) 5 % Eosinophils % (Manual) 2 % Basophils % (Manual) 2 % Band Neutrophils 0 % Prothrombin Time 24.2 H 12.2-14.7 SEC INR Comment 2.1 H 0.8-1.4 Activated Partial Thromboplast Time 58 H 24-35 SEC Sodium Level 139 135-145 MMOL/L Potassium Level 4.2 3.6-5.0 MMOL/L Chloride Level 99 98-107 MMOL/L Carbon Dioxide Level 25 21-32 MMOL/L Anion Gap 15 H 5-14 MMOL/L Blood Urea Nitrogen 6 L 7-18 MG/DL Creatinine 1.12 0.60-1.30 MG/DL Estimat Glomerular Filtration Rate 85 BUN/Creatinine Ratio 5 Glucose Level 118 H 70-105 MG/DL Lactic Acid Level 1.94 0.50-2.00 MMOL/L Calcium Level 9.8 8.5-10.1 MG/DL Corrected Calcium 9.6 8.5-10.1 MG/DL Magnesium Level 1.7 1.6-2.4 MG/DL Total Bilirubin 0.4 0.1-1.0 MG/DL Aspartate Amino Transf (AST/SGOT) 16 5-34 U/L Alanine Aminotransferase (ALT/SGPT) 17 0-55 U/L Alkaline Phosphatase 151 H 40-136 U/L Troponin I < 0.30 <0.30 NG/ML Total Protein 7.8 6.4-8.2 GM/DL Albumin 4.3 3.2-4.5 GM/DL Lipase 1107 H 8-78 U/L Serum Alcohol < 10 <10 MG/DL My Orders Orders - FRANCISCO JAVIER CHIRINOS MD Cbc With Automated Diff (12/16/21 17:49) Comprehensive Metabolic Panel (12/16/21 17:49) Lactic Acid Analyzer (12/16/21 17:49) Lipase (12/16/21 17:49) Magnesium (12/16/21:49) Protime With Inr (12/16/21:49) Partial Thromboplastin Time (12/16/21 17:49) Troponin I Fs (12/16/21 17:49) Ed Iv/Invasive Line Start (12/16/21:49) Ekg Tracing (12/16/21:49) Monitor-Rhythm Ecg Trace Only (12/16/21 17:49) Morphine Injection (Morphine Injection (12/16/21 17:49) Ondansetron Injection (Zofran Injectio (12/16/21 18:00) Lactated Ringers (Lr 1000 Ml Iv Solution (12/16/21 17:49) Alcohol (12/16/21 17:49) Ct Abdomen/Pelvis W (12/16/21 17:53) Manual Differential (12/16/21 17:58) Iohexol Injection (Omnipaque 350 Mg/Ml 1 (12/16/21 18:45) Received Contrast (Hold Metformin- Contr (12/16/21 18:45) Sodium Chloride Flush (Catheter Flush Sy (12/16/21 18:45) Ns (Ivpb) (Sodium Chloride 0.9% Ivpb Bag (12/16/21 18:45) Medications Given in ED Current Medications Medications Dose Ordered Sig/Rasheed Route Start Time Stop Time Status Last Admin Dose Admin Ondansetron HCl 4 mg ONCE ONCE IVP 12/16/21 18:00 12/16/21 18:01 DC 12/16/21 18:02 4 MG Vital Signs/I&O 12/16/21 17:45 Temp 36.1 Pulse 84 Resp 16 B/P (MAP) 146/88 (107) Pulse Ox 100 O2 Delivery Room Air Progress Progress Note : Progress Note 41-year-old male with above history coming in due to abdominal pain. ABCs were intact and vitals were stable on presentation. Physical exam with epigastric tenderness but no signs of peritonitis. An IV was placed and he was given 10 mg of IV morphine, 4 mg of Zofran, and a bolus of IV fluids. Basic labs significant for leukocytosis which is not that unusual for him, and a lipase greater than 1100 consistent with pancreatitis. I contacted Dr. Thomas, who admit the patient under inpatient status for further evaluation and management. CT scan ordered as well to evaluate for abscess or other signs of infection Initial ECG Impression Date: Dec 16, 2021 Initial ECG Impression Time: 17:55 Initial ECG Rate: 84 Initial ECG Rhythm: Normal Sinus Comment Narrow QRS, borderline right axis deviation, no significant ST changes or T wave abnormalities, significant motion artifact making it difficult to fully interpret Departure Impression Primary Impression: Pancreatitis Qualified Codes: K85.80 - Other acute pancreatitis without necrosis or infection Disposition: 30 STILL A PATIENT Condition: Stable Admissions Decision to Admit Reason: Admit from ER (General) Decision to Admit/Date: Dec 16, 2021 Time/Decision to Admit Time: 18:57 Transfer Method of Transfer: EMS Departure-Patient Inst. Referrals: PADMINI CORONADO APRN (PCP) Primary Care Physician DAVID GERBER MD (Family) Primary Care Physician FRANCISCO JAVIER CHIRINOS MD Dec 16, 2021 18:09
[2021-12-16 18:17] LABS: INR 2.1 (0.8-1.4); PROTHROMBIN TIME PATIENT 24.2 SEC (12.2-14.7)
[2021-12-16 18:29] LABS: BAND NEUTROPHILS 0 %; LYMPHOCYTES % (MANUAL) 17 %; MONOCYTES % (MANUAL) 5 %; NEUTROPHILS % (MANUAL) 74 %
[2021-12-16 18:30] LABS: BASOPHILS % (MANUAL) 2 %; EOSINOPHILS % (MANUAL) 2 %
[2021-12-16 18:31] LABS: CHLORIDE 99 MMOL/L (98-107); POTASSIUM 4.2 MMOL/L (3.6-5.0); SODIUM 139 MMOL/L (135-145)
[2021-12-16 18:32] LABS: ALANINE AMINOTRANSFERASE 17 U/L (0-55); ALKALINE PHOSPHATASE 151 U/L (40-136); BILIRUBIN,TOTAL 0.4 MG/DL (0.1-1.0); BUN/CREATININE RATIO 5; CALCIUM 9.8 MG/DL (8.5-10.1); CARBON DIOXIDE 25 MMOL/L (21-32); CREATININE SERUM 1.12 MG/DL (0.60-1.30); GFR ESTIMATED 85; GLUCOSE 118 MG/DL (70-105); MAGNESIUM 1.7 MG/DL (1.6-2.4); TOTAL PROTEIN 7.8 GM/DL (6.4-8.2)
[2021-12-16 18:33] LABS: ALBUMIN 4.3 GM/DL (3.2-4.5); LIPASE 1107 U/L (8-78)
[2021-12-16] MEDS ORDERED: IOHEXOL 350 MG/ML 100 ML (OMNIPAQUE 350) VIAL IV ONE (18:45)
[2021-12-16] MEDS ORDERED: CATHETER FLUSH 10 ML SYR IV PRN (18:45)
[2021-12-16] MEDS ORDERED: HOLD METFORMIN - RECEIVED CONTRAST 20 ML VIAL IV SCH (18:45)
[2021-12-16] MEDS ORDERED: NS 100 ML (IVPB) BAG IV ONE (18:45)
[2021-12-16] MEDS ORDERED: HYDROmorphone 2 MG/ML VIAL (DILAUDID) IV PRN (19:00)
--- NOTE | 2021-12-16 20:40 | Diagnostic Imaging Report ---
PROCEDURE: CT abdomen and pelvis with contrast. TECHNIQUE: Multiple contiguous axial images were obtained through the abdomen and pelvis after administration of intravenous contrast. Auto Exposure Controls were utilized during the CT exam to meet ALARA standards for radiation dose reduction. All CT scans use one or more of the following dose optimizing techniques: automated exposure control, MA and/or KvP adjustment based on patient size and exam type or iterative reconstruction. INDICATION: Abdominal pain. History of chronic pancreatitis. Prior cholecystectomy. COMPARISON: Previous CT of the abdomen and pelvis from September 17, 2019. FINDINGS: Lung bases demonstrate no finding of pneumonia or edema. There is no pleural or pericardial collection. There are unchanged geographic regions of low attenuation within the right hepatic lobe. These have been present dating back to June 2021. These are likely transient perfusion deficits. The patient is status post cholecystectomy. The portal veins are patent. There is no abnormal biliary dilatation. The prior examination demonstrated a large pseudocyst within the pancreatic head. This previously measured up to 3.2 x 3.1 cm. This has decreased in size in the interval, now measuring 2.0 x 2.1 cm. There has, however, been interval recurrence of new abnormal inflammatory stranding about the pancreatic head and uncinate process that likely reflects recurrent acute pancreatitis. The spleen is normal. There is no adrenal mass. Stable left renal cyst. The kidneys demonstrate no finding of hydronephrosis. There is no evidence of bowel obstruction. There is no abnormal bowel thickening. The appendix is normal. There is no free fluid in the pelvis. There is no free air. There is no abscess. The bladder is unremarkable and there is no adenopathy. Aorta is normal in caliber. There is no acute osseous abnormality. IMPRESSION: 1. Interval reduction in size of the patient's prior pancreatic head pseudocyst. 2. Recurrent acute appearing inflammatory stranding and fluid about the pancreatic head and uncinate process compatible with a recurrent acute appendicitis. 3. Previous cholecystectomy. 4. Unchanged apparent perfusion defect within the right hepatic lobe. Dictated by: Dictated on workstation # [id number]
[2021-12-16] MEDS ORDERED: LACTATED RINGERS 1,000 ML IV ONE (21:16)
[2021-12-16] MEDS: HYDROmorphone 2 MG/ML VIAL (DILAUDID) IV PRN (21:19)
[2021-12-16] MEDS ORDERED: morphine INJ 10 MG/ML 1ML (SYR OR VIAL) IV PRN (21:30)
[2021-12-16] MEDS ORDERED: NALOXONE 0.4 MG/ML 1 ML (NARCAN) VIAL IV PRN (21:30)
[2021-12-16] MEDS: LACTATED RINGERS 1,000 ML IV SCH (21:41)
[2021-12-16] MEDS ORDERED: PROMETHAZINE INJ 25 MG/ML (PHENERGAN) AMP IVP PRN (21:45)
[2021-12-16] MEDS: warFARin 2 MG (COUMADIN) TAB PO SCH (21:48)
[2021-12-16 22:27] VITALS: BP 146/88
[2021-12-16] MEDS ORDERED: RT-ALBUTEROL SULF 2.5 MG/3 ML PRE-MIX VIAL INH PRN (22:45)
[2021-12-16 23:13] VITALS: BP 159/80
[2021-12-17] MEDS: ONDANSETRON 4 MG/2 ML (SDV) Z0FRAN IV PRN ×2 (00:15→09:17)
[2021-12-17] MEDS: HYDROmorphone 2 MG/ML VIAL (DILAUDID) IV PRN ×6 (01:19→22:30)
[2021-12-17] MEDS: LACTATED RINGERS 1,000 ML IV SCH ×3 (02:20→12:35)
[2021-12-17 03:12] VITALS: BP 126/77
[2021-12-17 08:10] VITALS: BP 134/75
[2021-12-17 11:41] VITALS: BP 134/75
[2021-12-17 13:10] LABS: BASOPHILS # (AUTO) 0.1 10^3/uL (0.0-0.1); BASOPHILS % (AUTO) 0 % (0-10); EOSINOPHILS # (AUTO) 0.3 10^3/uL (0.0-0.3); EOSINOPHILS % (AUTO) 1 % (0-10); HEMATOCRIT 43 % (40-54); HEMOGLOBIN 14.9 g/dL (13.3-17.7); LYMPHOCYTES # (AUTO) 4.4 10^3/uL (1.0-4.0); LYMPHOCYTES % (AUTO) 25 % (12-44); MEAN CORPUSCULAR HEMOGLOBIN 31 pg (25-34); MEAN CORPUSCULAR HGB CONC 34 g/dL (32-36); MEAN CORPUSCULAR VOLUME 90 fL (80-99); MEAN PLATELET VOLUME 8.7 fL (9.0-12.2); MONOCYTES # (AUTO) 1.2 10^3/uL (0.0-1.0); MONOCYTES % (AUTO) 7 % (0-12); NEUTROPHILS # (AUTO) 11.7 10^3/uL (1.8-7.8); NEUTROPHILS % (AUTO) 66 % (42-75); PLATELET COUNT 310 10^3/uL (130-400); WHITE BLOOD COUNT 17.6 10^3/uL (4.3-11.0)
[2021-12-17 13:30] LABS: ALBUMIN 3.4 GM/DL (3.2-4.5); BILIRUBIN,TOTAL 0.6 MG/DL (0.1-1.0); CALCIUM 9.5 MG/DL (8.5-10.1); CREATININE SERUM 0.83 MG/DL (0.60-1.30); POTASSIUM 3.9 MMOL/L (3.6-5.0); TOTAL PROTEIN 6.4 GM/DL (6.4-8.2)
[2021-12-17] MEDS ORDERED: OXYC10TA7 PO (13:36)
[2021-12-17] MEDS ORDERED: WARF-47 PO (13:36)
[2021-12-17 14:15] LABS: INR 2.8 (0.8-1.4); PROTHROMBIN TIME PATIENT 29.9 SEC (12.2-14.7)
--- NOTE | 2021-12-17 14:33 | History & Physical-Hospitalist ---
NILDA COTTRELL 12/17/21 1433: History of Present Illness HPI/Chief Complaint Patient is a 41 yo M admitted from ED for suspected pancreatitis. Upon arrival he noted severe epigastric pain that is sharp, constant, and radiates to the back. He has a history of chronic pancreatitis and previous alcohol use disorder but notes that he has been sober for over 100 days. Pain is described as being nearly identical to previous occurrences of pancreatitis. He tried home oxycodone but was unable to keep the pills down due to nausea. He is a current everyday smoker, uses marijuana every once in a while. He was given morphine, zofran, and IV fluids. ECG revealed narrow complex, borderline right axis deviation with no ST or T wave abnormalities. He has had a previous cholecystectomy. Indicates that he is experiencing intermittent nausea, intermittent dizziness, and rates his abdominal pain as a 5 out of 10. He denies chills, headaches, and SOB. Source: patient, RN/MD, old records Exam Limitations: no limitations Date Seen 12/17/21 Time Seen by a Provider: 10:00 Attending Physician Fadumo Lund Aprn PCP Admitting Physician: Mora Thomas MD Attending Physician: Delfina Ashley DO Referring Physician Date of Admission Dec 16, 2021 at 20:38 Home Medications & Allergies Home Medications Reviewed patient Home Medication Reconciliation performed by pharmacy medication reconciliations trace evidence technician and/or nursing. Patients Allergies have been reviewed. Allergies Allergies Coded Allergies Penicillins (Verified Allergy, Unknown, Angioedema, 12/17/21) Uncoded Allergies pcn ( Allergy, Unknown, 01/29/21) Past Nzmeiao-Yqftil-Jokots Hx Patient Social History Tobacco Use?: Yes Tobacco type used: Cigarettes Smoking Status: Heavy Tobacco Smoker Smokeless Tobacco Frequency: Never a User Use of E-Cig and/or Vaping dev: No Substance use?: Yes Substance type: Marijuana Additional substance use comme: last used yesterday Substance frequency: Couple times a week Alcohol Use?: No Additional Alcohol Comments: HX: Alcohol abuse Pt feels they are or have been: No Immunizations Up To Date First/Initial COVID19 Vaccinat: Not currently Second COVID19 Vaccination Aris: Not currently Tetanus Booster (TDap): Unknown Hepatitis A: No Hepatitis B: No Current Status Advance Directives: No Communicates: Verbally Primary Language: Polish Preferred Spoken Language: Polish Is interpretation needed?: No Past Medical History Surgeries: Gallbladder (cholecystectomy) Review of Systems Constitutional: No chills, No fever, No malaise EENTM: no symptoms reported Respiratory: no symptoms reported; No cough, No short of breath Cardiovascular: no symptoms reported, see HPI Gastrointestinal: see HPI, abdominal pain, nausea Genitourinary: no symptoms reported Musculoskeletal: no symptoms reported Skin: no symptoms reported Psychiatric/Neurological: No Symptoms Reported All Other Systems Reviewed Negative Unless Noted: Yes Physical Exam Physical Exam Vital Signs Vital Signs - First Documented 12/16/21 12/16/21 17:45 22:27 Temp 36.1 Pulse 84 Resp 16 B/P (MAP) 146/88 (107) Pulse Ox 100 O2 Delivery Room Air FiO2 21 Capillary Refill : Less Than 3 Seconds Height, Weight, BMI Height: '" Weight: lbs. oz. kg; 19.31 BMI Method: General Appearance: No Apparent Distress, WD/WN Neck: Normal Inspection, Non Tender, Supple; No Carotid Bruit, No JVD Respiratory: Chest Non Tender, Lungs Clear, Normal Breath Sounds, No Accessory Muscle Use, No Respiratory Distress Cardiovascular: Regular Rate, Rhythm, No Edema, No Gallop, No JVD, No Murmur, Normal Peripheral Pulses Gastrointestinal: Normal Bowel Sounds, Tenderness Back: Normal Inspection, No CVA Tenderness Extremity: Normal Capillary Refill, Normal Inspection, Non Tender, No Calf Tenderness, No Pedal Edema Neurologic/Psychiatric: Alert, Oriented x3, Normal Mood/Affect Skin: Normal Color, Warm/Dry Results Results/Procedures Labs Laboratory Tests 12/16/21 17:58 12/17/21 13:04 Patient resulted labs reviewed. Imaging Date of Exam:12/16/21 CT ABDOMEN/PELVIS W PROCEDURE: CT abdomen and pelvis with contrast. TECHNIQUE: Multiple contiguous axial images were obtained through the abdomen and pelvis after administration of intravenous contrast. Auto Exposure Controls were utilized during the CT exam to meet ALARA standards for radiation dose reduction. All CT scans use one or more of the following dose optimizing techniques: automated exposure control, MA and/or KvP adjustment based on patient size and exam type or iterative reconstruction. INDICATION: Abdominal pain. History of chronic pancreatitis. Prior cholecystectomy. COMPARISON: Previous CT of the abdomen and pelvis from September 17, 2019. FINDINGS: Lung bases demonstrate no finding of pneumonia or edema. There is no pleural or pericardial collection. There are unchanged geographic regions of low attenuation within the right hepatic lobe. These have been present dating back to June 2021. These are likely transient perfusion deficits. The patient is status post cholecystectomy. The portal veins are patent. There is no abnormal biliary dilatation. The prior examination demonstrated a large pseudocyst within the pancreatic head. This previously measured up to 3.2 x 3.1 cm. This has decreased in size in the interval, now measuring 2.0 x 2.1 cm. There has, however, been interval recurrence of new abnormal inflammatory stranding about the pancreatic head and uncinate process that likely reflects recurrent acute pancreatitis. The spleen is normal. There is no adrenal mass. Stable left renal cyst. The kidneys demonstrate no finding of hydronephrosis. There is no evidence of bowel obstruction. There is no abnormal bowel thickening. The appendix is normal. There is no free fluid in the pelvis. There is no free air. There is no abscess. The bladder is unremarkable and there is no adenopathy. Aorta is normal in caliber. There is no acute osseous abnormality. IMPRESSION: 1. Interval reduction in size of the patient's prior pancreatic head pseudocyst. 2. Recurrent acute appearing inflammatory stranding and fluid about the pancreatic head and uncinate process compatible with a recurrent acute appendicitis. 3. Previous cholecystectomy. 4. Unchanged apparent perfusion defect within the right hepatic lobe. Dictated by: Dictated on workstation # [id number] Dict: 12/16/212028 Trans: 12/16/212147 [facility] [id number] Interpreted by: TERESA WRIGHT MD Electronically signed by: TERESA WRIGHT MD 12/16/212147 Meds As noted in medication list Warfarin given for DVT prophylaxis. Ondansetron for nausea. Hydromorphone, oxycodone, and morphine for pain management. Lactated ringers for IV fluid resuscitation. Assessment/Plan Admission Diagnosis Acute pancreatitis with history of chronic pancreatitis Admission Status: Inpatient Order (span 2 midnights) Reason for Inpatient Admission: Inpatient admission is necessary to monitor treatment course and avoid serious organ damage due to the patient's condition. Due to opioid medications, hospital pain management provides a safer avenue than outpatient pain management. Assessment and Plan Acute pancreatitis - aggressive fluid treatment with lactated ringers. Pain managed with opioids and nausea with ondansetron. Diagnosis/Problems Diagnosis/Problems (1) Acute pancreatitis Status: Acute (2) Abdominal pain Status: Acute (3) Chronic recurrent pancreatitis Status: Acute Clinical Quality Measures AMI/AHF: ASA po Prior to arrival: No DVT/VTE Risk/Contraindication: VTE Addressed: Yes VTE Present on Admission: No DELFINA ASHLEY DO 12/18/21 0539: Assessment/Plan Admission Diagnosis Acute pancreatitis Chronic pancreatitis Alcoholism history Hypoglycemia Plan: Pain control Admission Status: Inpatient Order (span 2 midnights) Reason for Inpatient Admission: Pancreatitis Supervisory-Addendum Brief Verification & Attestation Participated in pt care: history, MDM, physical Personally performed: exam, history, MDM, supervision of care Care discussed with: Medical Student Procedures: n/a Results interpretation: Verified all documentation Verification and Attestation of Medical Student E/M Service A medical student performed and documented this service in my presence. I reviewed and verified all information documented by the medical student and made modifications to such information, when appropriate. I personally performed the physical exam and medical decision making. Delfina Ashley, Dec 18, 2021,05:38 NILDA COTTRELL Dec 17, 2021 14:33 DELFINA ASHLEY DO Dec 18, 2021 05:39
[2021-12-17 17:00] VITALS: BP 138/81
[2021-12-17] MEDS ORDERED: NON-FORMULARY MEDICATION 1 EA EA (Ondansetron (Ondansetron Odt) 8 MG) PO PRN (17:30)
[2021-12-17] MEDS ORDERED: DEXTROSE 50% 50 ML (IMS) SYR IV PRN (17:30)
[2021-12-17] MEDS ORDERED: NON-FORMULARY MEDICATION 1 EA EA (Oxycodone HCl 10 MG) PO PRN (17:30)
[2021-12-17] MEDS: POTASSIUM CHLORIDE INJ 20 MEQ in D5 LR IV SOLUTION 1,000 ML IV SCH (18:24)
[2021-12-17] MEDS: ONDANSETRON 4 MG (ZOFRAN) ORAL DISSOLVE TAB PO PRN (18:31)
[2021-12-17 21:00] VITALS: BP 127/78
[2021-12-17] MEDS ORDERED: warFARin 2 MG (COUMADIN) TAB PO SCH (21:00)
[2021-12-17 21:13] VITALS: BP 127/78
[2021-12-17] MEDS: warFARin 2 MG (COUMADIN) TAB PO SCH (21:18)
[2021-12-18 00:31] VITALS: BP 103/57
[2021-12-18] MEDS: HYDROmorphone 2 MG/ML VIAL (DILAUDID) IV PRN ×6 (02:29→22:42)
[2021-12-18 03:18] VITALS: BP 102/58
[2021-12-18] MEDS: POTASSIUM CHLORIDE INJ 20 MEQ in D5 LR IV SOLUTION 1,000 ML IV SCH ×2 (03:58→14:42)
[2021-12-18 06:01] LABS: BASOPHILS # (AUTO) 0.1 10^3/uL (0.0-0.1); BASOPHILS % (AUTO) 0 % (0-10); EOSINOPHILS # (AUTO) 0.3 10^3/uL (0.0-0.3); EOSINOPHILS % (AUTO) 2 % (0-10); HEMATOCRIT 41 % (40-54); HEMOGLOBIN 13.8 g/dL (13.3-17.7); LYMPHOCYTES % (AUTO) 34 % (12-44); MEAN CORPUSCULAR HEMOGLOBIN 31 pg (25-34); MEAN CORPUSCULAR HGB CONC 34 g/dL (32-36); MEAN CORPUSCULAR VOLUME 91 fL (80-99); MONOCYTES # (AUTO) 0.9 10^3/uL (0.0-1.0); MONOCYTES % (AUTO) 8 % (0-12); NEUTROPHILS # (AUTO) 6.3 10^3/uL (1.8-7.8); NEUTROPHILS % (AUTO) 55 % (42-75); PLATELET COUNT 292 10^3/uL (130-400); WHITE BLOOD COUNT 11.5 10^3/uL (4.3-11.0)
[2021-12-18 06:17] LABS: ALBUMIN 3.3 GM/DL (3.2-4.5); POTASSIUM 3.9 MMOL/L (3.6-5.0)
[2021-12-18 06:19] LABS: CALCIUM 9.2 MG/DL (8.5-10.1)
[2021-12-18 06:20] LABS: TOTAL PROTEIN 6.2 GM/DL (6.4-8.2)
[2021-12-18 06:22] LABS: BILIRUBIN,TOTAL 0.5 MG/DL (0.1-1.0)
[2021-12-18 06:23] LABS: CREATININE SERUM 0.89 MG/DL (0.60-1.30)
--- NOTE | 2021-12-18 08:10 | Progress Note - Hospitalist ---
Subjective HPI/CC On Admission Date Seen by Provider: Dec 18, 2021 Time Seen by Provider: 11:00 Patient is a 41 yo M admitted from ED for suspected pancreatitis. Upon arrival he noted severe epigastric pain that is sharp, constant, and radiates to the back. He has a history of chronic pancreatitis and previous alcohol use disorder but notes that he has been sober for over 100 days. Pain is described as being nearly identical to previous occurrences of pancreatitis. He tried home oxycodone but was unable to keep the pills down due to nausea. He is a current everyday smoker, uses marijuana every once in a while. He was given morphine, zofran, and IV fluids. ECG revealed narrow complex, borderline right axis deviation with no ST or T wave abnormalities. He has had a previous cholecystectomy. Indicates that he is experiencing intermittent nausea, intermittent dizziness, and rates his abdominal pain as a 5 out of 10. He denies chills, headaches, and SOB. Subjective/Events-last exam Pain is about the same Family visiting today Lipase down so ice chips will be given Review of Systems Gastrointestinal: Nausea, Abdominal Pain Focused Exam Lactate Level 12/16/21 17:58: Lactic Acid Level 1.94 Objective Exam Vital Signs Vital Signs Date Time Temp Pulse Resp B/P (MAP) Pulse Ox O2 Delivery O2 Flow Rate FiO2 12/18/21 15:47 36.2 96 20 107/72 (84) 98 Room Air 12/16/21 22:27 21 Capillary Refill : Less Than 3 Seconds General Appearance: No Apparent Distress, WD/WN, Chronically ill Respiratory: Lungs Clear, Normal Breath Sounds Cardiovascular: Regular Rate, Rhythm Neurologic/Psychiatric: Alert, Oriented x3, No Motor/Sensory Deficits, Normal Mood/Affect Results/Procedures Lab Laboratory Tests 12/18/21 05:45 Patient resulted labs reviewed. Assessment/Plan Assessment and Plan Assess & Plan/Chief Complaint Acute on chronic pancreatitis Hyperglycemia requiring IV fluid changed to D5 NS Plan: Pain control IV fluids Clinical Quality Measures AMI/AHF: ASA po Prior to arrival: No DVT/VTE Risk/Contraindication: VTE Addressed: Yes VTE Present on Admission: OBIE Whittington DO Dec 18, 2021 08:10
[2021-12-18 08:28] VITALS: BP 111/64
[2021-12-18] MEDS: PANTOPRAZOLE 40 MG (PROTONIX) TAB PO SCH (08:53)
[2021-12-18] MEDS ORDERED: NICOTINE 21 MG (NICODERM) PATCH TD ONE (09:45)
[2021-12-18] MEDS: ONDANSETRON 4 MG (ZOFRAN) ORAL DISSOLVE TAB PO PRN ×2 (10:05→18:40)
[2021-12-18 12:21] VITALS: BP 97/71
[2021-12-18 15:47] VITALS: BP 107/72
[2021-12-18 20:00] VITALS: BP 113/72
[2021-12-18] MEDS: warFARin 2 MG (COUMADIN) TAB PO SCH (20:52)
[2021-12-19] VITALS (7 sets, daily range): BP systolic 109–135; BP diastolic 69–836
[2021-12-19] MEDS: POTASSIUM CHLORIDE INJ 20 MEQ in D5 LR IV SOLUTION 1,000 ML IV SCH ×3 (01:25→20:52)
[2021-12-19] MEDS: HYDROmorphone 2 MG/ML VIAL (DILAUDID) IV PRN ×4 (02:40→15:45)
[2021-12-19 06:15] LABS: BASOPHILS % (AUTO) 0 % (0-10); EOSINOPHILS # (AUTO) 0.3 10^3/uL (0.0-0.3); EOSINOPHILS % (AUTO) 3 % (0-10); HEMATOCRIT 43 % (40-54); HEMOGLOBIN 14.6 g/dL (13.3-17.7); LYMPHOCYTES # (AUTO) 3.5 10^3/uL (1.0-4.0); LYMPHOCYTES % (AUTO) 40 % (12-44); MEAN CORPUSCULAR HEMOGLOBIN 31 pg (25-34); MEAN CORPUSCULAR HGB CONC 34 g/dL (32-36); MEAN CORPUSCULAR VOLUME 91 fL (80-99); MEAN PLATELET VOLUME 9.4 fL (9.0-12.2); MONOCYTES # (AUTO) 0.5 10^3/uL (0.0-1.0); MONOCYTES % (AUTO) 6 % (0-12); NEUTROPHILS # (AUTO) 4.4 10^3/uL (1.8-7.8); NEUTROPHILS % (AUTO) 50 % (42-75); PLATELET COUNT 310 10^3/uL (130-400); WHITE BLOOD COUNT 8.7 10^3/uL (4.3-11.0)
[2021-12-19 06:16] LABS: ALBUMIN 3.8 GM/DL (3.2-4.5); POTASSIUM 3.8 MMOL/L (3.6-5.0)
[2021-12-19 06:17] LABS: CALCIUM 9.8 MG/DL (8.5-10.1)
[2021-12-19 06:18] LABS: INR 2.6 (0.8-1.4); PROTHROMBIN TIME PATIENT 28.5 SEC (12.2-14.7)
[2021-12-19 06:19] LABS: TOTAL PROTEIN 7.1 GM/DL (6.4-8.2)
[2021-12-19 06:20] LABS: BILIRUBIN,TOTAL 0.5 MG/DL (0.1-1.0)
[2021-12-19 06:22] LABS: CREATININE SERUM 1.04 MG/DL (0.60-1.30)
--- NOTE | 2021-12-19 06:28 | Progress Note - Hospitalist ---
Subjective HPI/CC On Admission Date Seen by Provider: Dec 19, 2021 Time Seen by Provider: 12:30 Patient is a 41 yo M admitted from ED for suspected pancreatitis. Upon arrival he noted severe epigastric pain that is sharp, constant, and radiates to the back. He has a history of chronic pancreatitis and previous alcohol use disorder but notes that he has been sober for over 100 days. Pain is described as being nearly identical to previous occurrences of pancreatitis. He tried home oxycodone but was unable to keep the pills down due to nausea. He is a current everyday smoker, uses marijuana every once in a while. He was given morphine, zofran, and IV fluids. ECG revealed narrow complex, borderline right axis deviation with no ST or T wave abnormalities. He has had a previous cholecystectomy. Indicates that he is experiencing intermittent nausea, intermittent dizziness, and rates his abdominal pain as a 5 out of 10. He denies chills, headaches, and SOB. Subjective/Events-last exam Patient doing well Advancing diet to clear liquids No other concerns Review of Systems General: Fatigue, Malaise Gastrointestinal: Abdominal Pain Focused Exam Lactate Level 12/16/21 17:58: Lactic Acid Level 1.94 Objective Exam Vital Signs Vital Signs Date Time Temp Pulse Resp B/P (MAP) Pulse Ox O2 Delivery O2 Flow Rate FiO2 12/19/21 12:43 74 12/19/21 12:00 36.4 18 135/91 (106) 98 12/19/21 08:31 21 12/19/21 08:30 Room Air 12/19/21 08:28 0.00 Capillary Refill : Less Than 3 Seconds General Appearance: No Apparent Distress, WD/WN, Chronically ill, Thin Respiratory: Lungs Clear, Normal Breath Sounds Cardiovascular: Regular Rate, Rhythm Neurologic/Psychiatric: Alert, Oriented x3, No Motor/Sensory Deficits, Normal Mood/Affect Results/Procedures Lab Laboratory Tests 12/19/21 05:29 Patient resulted labs reviewed. 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
[2021-12-19] MEDS: PANTOPRAZOLE 40 MG (PROTONIX) TAB PO SCH (08:26)
[2021-12-19] MEDS: NICOTINE 21 MG (NICODERM) PATCH TD SCH (08:26)
[2021-12-19] MEDS: PATCH REMOVAL TP SCH (09:30)
[2021-12-19] MEDS: ONDANSETRON 4 MG (ZOFRAN) ORAL DISSOLVE TAB PO PRN (10:58)
[2021-12-19] MEDS: warFARin 2 MG (COUMADIN) TAB PO SCH (20:52)
[2021-12-20 00:32] VITALS: BP 112/78
--- NOTE | 2021-12-20 05:49 | Progress Note - Hospitalist ---
Subjective HPI/CC On Admission Date Seen by Provider: Dec 20, 2021 Time Seen by Provider: 09:00 Patient is a 41 yo M admitted from ED for suspected pancreatitis. Upon arrival he noted severe epigastric pain that is sharp, constant, and radiates to the back. He has a history of chronic pancreatitis and previous alcohol use disorder but notes that he has been sober for over 100 days. Pain is described as being nearly identical to previous occurrences of pancreatitis. He tried home oxycodone but was unable to keep the pills down due to nausea. He is a current everyday smoker, uses marijuana every once in a while. He was given morphine, zofran, and IV fluids. ECG revealed narrow complex, borderline right axis deviation with no ST or T wave abnormalities. He has had a previous cholecystectomy. Indicates that he is experiencing intermittent nausea, intermittent dizziness, and rates his abdominal pain as a 5 out of 10. He denies chills, headaches, and SOB. Objective Exam Vital Signs Vital Signs Date Time Temp Pulse Resp B/P (MAP) Pulse Ox O2 Delivery O2 Flow Rate FiO2 12/20/21 07:18 73 12/20/21 07:09 36.5 18 111/80 (90) 99 Room Air 12/19/21 08:31 21 12/19/21 08:28 0.00 Capillary Refill : Less Than 3 Seconds Results/Procedures Lab Laboratory Tests 12/20/21 05:27 Patient resulted labs reviewed. 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
[2021-12-20] MEDS: POTASSIUM CHLORIDE INJ 20 MEQ in D5 LR IV SOLUTION 1,000 ML IV SCH (06:12)
[2021-12-20 06:23] LABS: BASOPHILS # (AUTO) 0.1 10^3/uL (0.0-0.1); BASOPHILS % (AUTO) 1 % (0-10); EOSINOPHILS # (AUTO) 0.4 10^3/uL (0.0-0.3); EOSINOPHILS % (AUTO) 4 % (0-10); HEMATOCRIT 41 % (40-54); HEMOGLOBIN 14.2 g/dL (13.3-17.7); LYMPHOCYTES # (AUTO) 3.4 10^3/uL (1.0-4.0); LYMPHOCYTES % (AUTO) 34 % (12-44); MEAN CORPUSCULAR HEMOGLOBIN 31 pg (25-34); MEAN CORPUSCULAR HGB CONC 35 g/dL (32-36); MEAN CORPUSCULAR VOLUME 89 fL (80-99); MEAN PLATELET VOLUME 9.6 fL (9.0-12.2); MONOCYTES # (AUTO) 0.7 10^3/uL (0.0-1.0); MONOCYTES % (AUTO) 7 % (0-12); NEUTROPHILS # (AUTO) 5.7 10^3/uL (1.8-7.8); NEUTROPHILS % (AUTO) 55 % (42-75); PLATELET COUNT 314 10^3/uL (130-400); WHITE BLOOD COUNT 10.2 10^3/uL (4.3-11.0)
[2021-12-20 06:33] LABS: PROTHROMBIN TIME PATIENT 31.3 SEC (12.2-14.7)
[2021-12-20 06:38] LABS: ALBUMIN 3.6 GM/DL (3.2-4.5)
[2021-12-20 06:39] LABS: CALCIUM 9.8 MG/DL (8.5-10.1)
[2021-12-20 06:41] LABS: TOTAL PROTEIN 6.9 GM/DL (6.4-8.2)
[2021-12-20 06:42] LABS: BILIRUBIN,TOTAL 0.5 MG/DL (0.1-1.0)
[2021-12-20 06:44] LABS: CREATININE SERUM 0.96 MG/DL (0.60-1.30)
[2021-12-20 07:09] VITALS: BP 111/80
[2021-12-20] MEDS: PANTOPRAZOLE 40 MG (PROTONIX) TAB PO SCH (08:29)
[2021-12-20] MEDS: NICOTINE 21 MG (NICODERM) PATCH TD SCH (08:29)
[2021-12-20] MEDS: PATCH REMOVAL TP SCH (08:30)
--- NOTE | 2021-12-20 10:14 | Discharge Summary ---
Discharge Summary Hospital Course Was the Problem List Reviewed?: Yes Problems/Dx: (1) Acute pancreatitis Status: Acute (2) Abdominal pain Status: Acute (3) Chronic recurrent pancreatitis Status: Acute Hospital Course Date of Admission: Dec 16, 2021 at 20:38 Admission Diagnosis : Family Physician/Provider: William Massey MD Date of Discharge: 12/20/21 Discharge Diagnosis: [ ] Hospital Course: Pt had an uneventful hospital course for 5 days after he was admitted for acute on chronic pancreatitis. IV fluids and NPO status initiated along with pain medication. He did very well. We slowly advanced diet. He was deemed stable for discharge. Labs and Pending Lab Test: Laboratory Tests 12/19/21 16:00: Glucometer 85 12/20/21 04:52: Glucometer 110 12/20/21 05:27: White Blood Count 10.2, Red Blood Count 4.62, Hemoglobin 14.2, Hematocrit 41, Mean Corpuscular Volume 89, Mean Corpuscular Hemoglobin 31, Mean Corpuscular Hemoglobin Concent 35, Red Cell Distribution Width 11.7, Platelet Count 314, Mean Platelet Volume 9.6, Immature Granulocyte % (Auto) 0, Neutrophils (%) (Aut o) 55, Lymphocytes (%) (Auto) 34, Monocytes (%) (Auto) 7, Eosinophils (%) (Auto) 4, Basophils (%) (Auto) 1, Neutrophils # (Auto) 5.7, Lymphocytes # (Auto) 3.4, Monocytes # (Auto) 0.7, Eosinophils # (Auto) 0.4H, Basophils # (Auto) 0.1, Immature Granulocyte # (Auto) 0.0, Prothrombin Time 31.3H, INR Comment 3.0H, Sodium Level 136, Potassium Level 4.0, Chloride Level 100, Carbon Dioxide Level 26, Anion Gap 10, Blood Urea Nitrogen 5L, Creatinine 0.96, Estimat Glomerular Filtration Rate 102, BUN/Creatinine Ratio 5, Glucose Level 123H, Calcium Level 9.8, Corrected Calcium 10.1, Total Bilirubin 0.5, Aspartate Amino Transf (AST/SGOT) 16, Alanine Aminotransferase (ALT/SGPT) 12, Alkaline Phosphatase 98, Total Protein 6.9, Albumin 3.6, Lipase 353H Home Meds Active Reported Warfarin Sodium 2 Mg Tablet 2 Mg PO HS Oxycodone HCl 10 Mg Tablet 10 Mg PO Q6H PRN Ondansetron Odt (Ondansetron) 8 Mg Tab.rapdis 8 Mg PO Q8H PRN Pantoprazole Sodium 40 Mg Tablet.dr 40 Mg PO DAILY Assessment/Pt Instructions PCP in 1 week Discharge Planning: <30 minutes discharge planning Discharge Instructions Discharge Diet: No Restrictions Discharge Physical Examination Vital Signs Vital Signs Date Time Temp Pulse Resp B/P (MAP) Pulse Ox O2 Delivery O2 Flow Rate FiO2 12/20/21 07:18 73 12/20/21 07:09 36.5 18 111/80 (90) 99 Room Air 12/19/21 08:31 21 12/19/21 08:28 0.00 General Appearance: No Apparent Distress, WD/WN, Chronically ill Respiratory: Lungs Clear Cardiovascular: Regular Rate, Rhythm Allergies: Coded Allergies: Penicillins (Verified Allergy, Unknown, Angioedema, 12/17/21) Uncoded Allergies: pcn (Allergy, Unknown, 01/29/21) Discharge Summary Date of Admission Dec 16, 2021 at 20:38 Date of Discharge Discharge Date: Dec 20, 2021 Admission Diagnosis Acute pancreatitis Chronic pancreatitis Alcoholism history Hypoglycemia Plan: Pain control Discharge Diagnosis Acute on chronic pancreatitis Hyperglycemia requiring IV fluid changed to D5 NS 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
[2021-12-20 13:28] VITALS: BP 111/80
== END 2021-12-20 13:29 | disposition home or self-care (01) | DRG 440 ==
LOC: EDUNIT# 17:45 → ER FS 17:46 → 4TH 20:38
PROVIDERS: ADMIT Family Medicine; ATTEND Internal Medicine
DX: K85.90 Acute pancreatitis without necrosis or infection, unspecified (principal); K86.1 Other chronic pancreatitis; R73.9 Hyperglycemia, unspecified; Z79.01 Long term (current) use of anticoagulants; Z86.718 Personal history of other venous thrombosis and embolism; F17.210 Nicotine dependence, cigarettes, uncomplicated; F12.90 Cannabis use, unspecified, uncomplicated
CPT/HCPCS: 36415; 74177; 80053; 80320; 82947; 83605; 83690; 83735; 84484; 85007; 85025; 85027; 85610; 85730; 93005; 93041; 94760; 96361; 96374; 96375

== ENCOUNTER → 2022-04-20 | Outpatient (CLI) | payer OTHER ==
[~2022-04-20] MED LIST changes: +OXYC10TA7 PO
--- NOTE | 2022-04-20 13:21 | Diagnostic Imaging Report ---
PROCEDURE: CT urinary tract, rule out kidney stone. TECHNIQUE: Multiple contiguous axial images were obtained through the abdomen and pelvis without the use of intravenous contrast. Auto Exposure Controls were utilized during the CT exam to meet ALARA standards for radiation dose reduction. INDICATION: Cystic renal lesion, bladder wall thickening. COMPARISON: The study is compared with an exam dated 12/16/2021. FINDINGS: The intraparenchymal fluid collection associated with the pancreatic head today measures 3.2 cm, previously 2.2 cm, increased. However, the previous inflammatory changes peripheral to the pancreatic head have resolved, and there are no findings today to suggest CT evidence for active or acute pancreatitis. No new fluid collection, and no ascites. No gastric outlet obstruction. No intra- or extra-hepatic bile duct dilatation. There are clips at the gallbladder fossa. A few pancreatic parenchymal calcifications are chronic. No opaque stone along the course of the extrahepatic bile duct. An exophytic hyperdense nodule in the upper pole of the left kidney today measures an unchanged 1.3 cm consistent with a complex cyst, likely hemorrhagic or proteinaceous. No new renal lesion. There is no hydronephrosis. No radiodense urinary tract calculi. The nonfocal spleen is normal in size. There is no ileus or bowel obstruction. There is mild circumferential nonfocal and sob-mzto-emms thickening of the urinary bladder's wall circumferentially. It is slightly more pronounced than on prior, but this is believed owing to its interval reduction in distention and volume. No perivesical edema. No gas or fistula. No diverticulitis. There is no appendicitis. IMPRESSION: 1. Pseudocyst associated with the pancreatic head has increased in size; however, the previous features of acute pancreatitis are no longer present. There is resolution of ascites with no new fluid collection, biliary dilatation, or gastric outlet obstruction. 2. Stable hyperdense exophytic cyst in the upper pole of the left kidney. No stone or hydronephrosis. 3. Mild circumferential thickening of the urinary bladder's wall without perivesical edema. 4. No acute appearing abnormality. Dictated by: Dictated on workstation # [id number]
== END ==
LOC: RAD FS 12:35
PROVIDERS: ATTEND Student in an Organized Health Care Education/Training Program
DX: K86.3 Pseudocyst of pancreas (principal); N28.1 Cyst of kidney, acquired; N32.89 Other specified disorders of bladder
CPT/HCPCS: 74176

== ENCOUNTER 2022-07-04 15:57 | Emergency (ER) | payer OTHER ==
[2022-07-04] MEDS ORDERED: LACTATED RINGERS 1,000 ML IV STA (16:08)
[2022-07-04] MEDS ORDERED: fentaNYL INJ 100 MCG/2 ML AMP IVP STA (16:08)
--- NOTE | 2022-07-04 16:08 | ED Abdominal Pain ---
General Chief Complaint: Abdominal/GI Problems Stated Complaint: ABD,BACK PAIN,FEVER History of Present Illness Date Seen by Provider: July 04, 2022 Time Seen by Provider: 16:03 Initial Comments 41-year-old male presents with epigastric pain has been going on and off for about the last 5 days. Patient reports he has a history of pancreatitis has been alcohol free for 1 year. Patient reports that his oxycodone has been helping and the pain has been getting worse. He has some subjective fever and chills. Reports the pain also goes to his back. This is similar to his previous pancreatitis attack Allergies and Home Medications Allergies Coded Allergies: Penicillins (Verified Allergy, Unknown, Angioedema, 12/17/21) Uncoded Allergies: pcn (Allergy, Unknown, 01/29/21) Patient Home Medication List Home Medication List Reviewed: Yes Hyoscyamine Sulfate (Levsin-Sl) 0.125 Mg Tab.subl, 0.125 MG SL Q4H PRN for SPASMS Prescribed by: ORLANDO CARBALLO on 07/04/22 174 Ondansetron (Ondansetron Odt) 8 Mg Tab.rapdis, 8 MG PO Q8H PRN for NAUSEA/VOMITING-1ST LINE, (Reported) Entered as Reported by: YOLANDA JARA on 09/22/21 1514 Oxycodone HCl (Oxycodone HCl) 10 Mg Tablet, 10 MG PO Q6H PRN for PAIN-SEVERE (8- 10), (Reported) Entered as Reported by: YOLANDA JARA on 12/17/21 1336 Pantoprazole Sodium (Pantoprazole Sodium) 40 Mg Tablet.dr, 40 MG PO DAILY, (Reported) Entered as Reported by: YOLANDA JARA on 09/22/21 1514 Warfarin Sodium (Warfarin Sodium) 2 Mg Tablet, 2 MG PO HS, (Reported) Entered as Reported by: YOLANDA JARA on 12/17/21 1336 Review of Systems Review of Systems Constitutional: chills EENTM: No Symptoms Reported Respiratory: No Symptoms Reported Cardiovascular: No Symptoms Reported Gastrointestinal: Abdominal Pain; Denies Vomiting Genitourinary: No Symptoms Reported Musculoskeletal: back pain Skin: no symptoms reported Psychiatric/Neurological: No Symptoms Reported Endocrine: No Symptoms Reported Hematologic/Lymphatic: No Symptoms Reported Past Otpmkvs-Kmzgtl-Mswtgw Hx Immunizations Up To Date First/Initial COVID19 Vaccinat: Not currently Second COVID19 Vaccination Aris: Not currently Third COVID19 Vaccination Date: Not currently Past Medical History Surgery/Hospitalization HX: FLORI; Chronic Pancreatitis Surgeries: No Gallbladder Physical Exam Vital Signs Vital Signs - First Documented 07/04/22 16:00 Temp 36.4 Pulse 102 Resp 18 B/P (MAP) 145/89 (107) Pulse Ox 98 O2 Delivery Room Air Capillary Refill : Height/Weight/BMI Height: '" Weight: lbs. oz. kg; 19.31 BMI Method: General Appearance: thin, other (Uncomfortable) Respiratory: lungs clear, normal breath sounds Cardiovascular: normal peripheral pulses, regular rate, rhythm Gastrointestinal: tenderness Neurologic/Psychiatric: alert, normal mood/affect, oriented x 3 Skin: normal color, warm/dry Progress/Results/Core Measures Results/Orders Lab Results Laboratory Tests Test 07/04/22 16:00 07/04/22 16:08 Range/Units Urine Color YELLOW Urine Clarity CLEAR Urine pH 6.0 5-9 Urine Specific Mcgee <=1.005 1.016-1.022 Urine Protein NEGATIVE NEGATIVE Urine Glucose (UA) NEGATIVE NEGATIVE Urine Ketones NEGATIVE NEGATIVE Urine Nitrite NEGATIVE NEGATIVE Urine Bilirubin NEGATIVE NEGATIVE Urine Urobilinogen 0.2 < = 1.0 MG/DL Urine Leukocyte Esterase NEGATIVE NEGATIVE Urine RBC (Auto) NEGATIVE NEGATIVE Urine RBC NONE /HPF Urine WBC 0-2 /HPF Urine Squamous Epithelial Cells RARE /HPF Urine Crystals NONE /LPF Urine Bacteria NEGATIVE /HPF Urine Casts PRESENT /LPF Urine Hyaline Casts RARE /LPF Urine Mucus SMALL H /LPF Urine Culture Indicated NO White Blood Count 15.7 H 4.3-11.0 10^3/uL Red Blood Count 5.29 4.30-5.52 10^6/uL Hemoglobin 16.0 13.3-17.7 g/dL Hematocrit 47 40-54 % Mean Corpuscular Volume 89 80-99 fL Mean Corpuscular Hemoglobin 30 25-34 pg Mean Corpuscular Hemoglobin Concent 34 32-36 g/dL Red Cell Distribution Width 12.5 10.0-14.5 % Platelet Count 338 130-400 10^3/uL Mean Platelet Volume 9.2 9.0-12.2 fL Immature Granulocyte % (Auto) 0 % Neutrophils (%) (Auto) 64 42-75 % Lymphocytes (%) (Auto) 29 12-44 % Monocytes (%) (Auto) 5 0-12 % Eosinophils (%) (Auto) 2 0-10 % Basophils (%) (Auto) 1 0-10 % Neutrophils # (Auto) 10.0 H 1.8-7.8 10^3/uL Lymphocytes # (Auto) 4.6 H 1.0-4.0 10^3/uL Monocytes # (Auto) 0.7 0.0-1.0 10^3/uL Eosinophils # (Auto) 0.3 0.0-0.3 10^3/uL Basophils # (Auto) 0.1 0.0-0.1 10^3/uL Immature Granulocyte # (Auto) 0.0 0.0-0.1 10^3/uL Neutrophils % (Manual) 64 % Lymphocytes % (Manual) 22 % Monocytes % (Manual) 4 % Eosinophils % (Manual) 1 % Band Neutrophils 4 % Atypical Lymphocytes 5 % Platelet Estimate NORMAL Blood Morphology Comment NORMAL Sodium Level 134 L 135-145 MMOL/L Potassium Level 4.1 3.6-5.0 MMOL/L Chloride Level 96 L 98-107 MMOL/L Carbon Dioxide Level 27 21-32 MMOL/L Anion Gap 11 5-14 MMOL/L Blood Urea Nitrogen 10 7-18 MG/DL Creatinine 1.09 0.60-1.30 MG/DL Estimat Glomerular Filtration Rate 88 BUN/Creatinine Ratio 9 Glucose Level 142 H 70-105 MG/DL Calcium Level 9.7 8.5-10.1 MG/DL Corrected Calcium 9.3 8.5-10.1 MG/DL Magnesium Level 2.0 1.6-2.4 MG/DL Total Bilirubin 0.4 0.1-1.0 MG/DL Aspartate Amino Transf (AST/SGOT) 14 5-34 U/L Alanine Aminotransferase (ALT/SGPT) < 5 0-55 U/L Alkaline Phosphatase 118 40-136 U/L Total Protein 8.0 6.4-8.2 GM/DL Albumin 4.5 3.2-4.5 GM/DL Lipase 66 8-78 U/L My Orders Orders - CARBALLO,ORLANDO L DO Cbc With Automated Diff (07/04/22 16:08) Comprehensive Metabolic Panel (07/04/22 16:08) Lipase (07/04/22 16:08) Magnesium (07/04/22 16:08) Ua Culture If Indicated (07/04/22 16:08) Ondansetron Injection (Zofran Injectio (07/04/22 16:15) Lactated Ringers (Lr 1000 Ml Iv Solution (07/04/22 16:08) Fentanyl Inj (Sublimaze Injection) (07/04/22 16:08) Abdomen Flat & Upright/Decub (07/04/22 16:15) Manual Differential (07/04/22 16:08) Ct Abdomen/Pelvis W (07/04/22 16:57) Famotidine Injection (Pepcid Injection) (07/04/22 16:57) Hyoscyamine Sl Tablet (Levsin Sl Tablet) (07/04/22 17:00) Iohexol Injection (Omnipaque 350 Mg/Ml 1 (07/04/22 17:15) Received Contrast (Hold Metformin- Contr (07/04/22 17:15) Ns (Ivpb) (Sodium Chloride 0.9% Ivpb Bag (07/04/22 17:15) Medications Given in ED Current Medications Medications Dose Ordered Sig/Rasheed Route Start Time Stop Time Status Last Admin Dose Admin Hyoscyamine Sulfate 0.125 mg ONCE ONCE SL 07/04/22 17:00 07/04/22 17:01 DC 07/04/22 17:03 0.125 MG Iohexol 100 ml ONCE ONCE IV 07/04/22 17:15 07/04/22 17:16 DC 07/04/22 17:13 75 ML Ondansetron HCl 4 mg ONCE ONCE IVP 07/04/22 16:15 07/04/22 16:16 DC 07/04/22 16:17 4 MG Sodium Chloride 100 ml ONCE ONCE IV 07/04/22 17:15 07/04/22 17:16 DC 07/04/22 17:13 100 ML Vital Signs/I&O 07/04/22 16:00 Temp 36.4 Pulse 102 Resp 18 B/P (MAP) 145/89 (107) Pulse Ox 98 O2 Delivery Room Air Progress Progress Note : Progress Note Patient symptoms improved significantly with famotidine IV and and Levsin. Patient labs showed mild elevation of his white count but no acute findings of his lipase, AST or ALT. Patient's abdominal x-ray was obtained and reviewed with initial interpretation by me and final interpretation by radiology report that showed no significant intra-abdominal findings. Patient CT with contrast was obtained and reviewed with final interpretation per radiology report. Patient does have a mild increase in his size of his pseudocyst from the previous CT in April that was reviewed. Discussed CT findings with patient that showed some mild likely acute pancreatitis. Patient was offered admission versus home and return if symptoms worsen. Patient would prefer to try to go home and will return as needed. I will prescribe him Levsin since it seemed to give him significant pain relief. Patient was recommended to use a clear liquid diet for the next 24 to 36 hours and advance as tolerated. I also recommended he use Pepcid twice daily since it was in the combination with the Levsin that he got the significant relief. Patient's prior notes were reviewed. Patient is stable and discharged Diagnostic Imaging Diagonstic Imaging: CT Plain Films/CT/US/NM/MRI: abdomen, pelvis Comments CT ABDOMEN/PELVIS W EXAMINATION: CT abdomen and pelvis with intravenous contrast. TECHNIQUE: Multiple contiguous axial images were obtained through the abdomen and pelvis after the uneventful administration of intravenous contrast. All CT scans use one or more of the following dose optimizing techniques: automated exposure control, MA and/or KvP adjustment based on patient size and exam type or iterative reconstruction. HISTORY: Abdominal pain. Elevated white blood cell count. COMPARISON: 04/20/2022. 12/16/2021. FINDINGS: The heart is unremarkable. The included lung bases are clear. There has been interval increase in size in a presumed pseudocyst within the head of the pancreas measuring 3.9 x 4.5 cm on today's exam, previously measuring 3.3 x 3.1 cm. There are mild inflammatory changes surrounding the head of the pancreas. Wall thickening and hyperemia of the distal stomach and proximal duodenum are visualized. The pancreatic duct is not dilated. Stable benign-appearing cysts in the left kidney. No solid renal mass or hydronephrosis. No renal calculi. The urinary bladder is mildly distended. There is bladder wall thickening. Scattered benign cysts are seen in the liver. There is a linear area of decreased enhancement within the dome of the liver on the right. No suspicious enhancing hepatic lesions. The portal vein is patent. The gallbladder is surgically absent. The spleen and adrenal glands have a normal appearance. There is no pathologically enlarged mesenteric or retroperitoneal adenopathy. The bowel loops are nondilated. The appendix is visualized in the right lower quadrant and has a normal appearance. There is no free fluid or free air. No acute osseous abnormalities. There is no free air, loculated collection, or adenopathy in the pelvis. IMPRESSION: 1. Findings concerning for acute pancreatitis involving the head of the pancreas with interval increase in size in a presumed pseudocyst in the head of the pancreas and mild peripancreatic inflammatory changes surrounding the head of the pancreas. There is wall thickening and hyperemia of the distal stomach and proximal duodenum, which may be reactive or represent gastritis/duodenitis. Recommend correlation with patient history and laboratory values and follow-up, as indicated. 2. Wall thickening of a mildly distended urinary bladder, which may represent cystitis. Recommend correlation with UA. 3. Linear area of decreased enhancement within the dome of the liver on the right, stable since 12/16/2021. This likely represents an area of transient hepatic attenuation difference. No evidence of underlying mass. Reviewed: Reviewed by Me, Reviewed/Discussed Diagonstic Imaging: Xray Plain Films/CT/US/NM/MRI: abdomen Comments Date of Exam:07/04/22 ABDOMEN FLAT & UPRIGHT/DECUB INDICATION: Pain. FINDINGS: Supine and upright abdominal radiographs show no air-fluid level or free gas. There is a calculus projecting over the lower pole of the right kidney as well as clips at the level of the gallbladder fossa. IMPRESSION: Right nephrolithiasis with nonobstructive and unremarkable bowel gas pattern as well as previous cholecystectomy. Reviewed: Reviewed by Me, Reviewed/Discussed Departure Impression Primary Impression: Acute on chronic pancreatitis Additional Impression: Pseudocyst of pancreas Disposition: 01 HOME, SELF-CARE Condition: Stable Departure-Patient Inst. Referrals: PADMINI CORONADO APRN (PCP) Primary Care Physician DAVID GERBER MD (Family) Primary Care Physician Patient Instructions: Pancreatitis (DC) Add. Discharge Instructions: Follow-up with your primary care provider and GI specialist as needed. Return to the ER if symptoms worsen. Clear liquid diet for 24 to 36 hours then advance as tolerated. Please add Pepcid twice daily as available [id number]. This is available [id number] All discharge instructions reviewed with patient and/or family. Voiced understanding. Scripts Hyoscyamine Sulfate (Levsin-Sl) 0.125 Mg Tab.subl 0.125 MG SL Q4H PRN for SPASMS, #20 TAB Prov: ORLANDO CARBALLO DO 07/04/22 ORLANDO CARBALLO DO July 04, 2022 16:07
[2022-07-04] MEDS ORDERED: ONDANSETRON 4 MG/2 ML (SDV) Z0FRAN IVP ONE (16:15)
[2022-07-04 16:16] LABS: BASOPHILS # (AUTO) 0.1 10^3/uL (0.0-0.1); BASOPHILS % (AUTO) 1 % (0-10); EOSINOPHILS # (AUTO) 0.3 10^3/uL (0.0-0.3); EOSINOPHILS % (AUTO) 2 % (0-10); HEMATOCRIT 47 % (40-54); LYMPHOCYTES # (AUTO) 4.6 10^3/uL (1.0-4.0); LYMPHOCYTES % (AUTO) 29 % (12-44); MEAN CORPUSCULAR HEMOGLOBIN 30 pg (25-34); MEAN CORPUSCULAR HGB CONC 34 g/dL (32-36); MEAN CORPUSCULAR VOLUME 89 fL (80-99); MEAN PLATELET VOLUME 9.2 fL (9.0-12.2); MONOCYTES # (AUTO) 0.7 10^3/uL (0.0-1.0); MONOCYTES % (AUTO) 5 % (0-12); NEUTROPHILS % (AUTO) 64 % (42-75); PLATELET COUNT 338 10^3/uL (130-400); WHITE BLOOD COUNT 15.7 10^3/uL (4.3-11.0)
[2022-07-04 16:18] LABS: BILIRUBIN,URINE NEGATIVE (NEGATIVE); CLARITY,URINE CLEAR; COLOR,URINE YELLOW; GLUCOSE, URINE (UA) NEGATIVE (NEGATIVE); KETONES,URINE NEGATIVE (NEGATIVE); LEUKOCYTE ESTERASE ,URINE NEGATIVE (NEGATIVE); NITRITE,URINE NEGATIVE (NEGATIVE); PROTEIN,URINE NEGATIVE (NEGATIVE)
[2022-07-04 16:30] LABS: BACTERIA,URINE NEGATIVE /HPF; HYALINE CASTS, URINE RARE /LPF; SQUAMOUS EPITHELIAL CELL,UR RARE /HPF; WBC,URINE 0-2 /HPF
[2022-07-04 16:37] LABS: ATYPICAL LYMPHOCYTES 5 %; BAND NEUTROPHILS 4 %; EOSINOPHILS % (MANUAL) 1 %; LYMPHOCYTES % (MANUAL) 22 %; MONOCYTES % (MANUAL) 4 %; NEUTROPHILS % (MANUAL) 64 %; PLATELET ESTIMATE NORMAL; RBC MORPH NORMAL
[2022-07-04 16:38] LABS: ALANINE AMINOTRANSFERASE < 5 U/L (0-55); ALBUMIN 4.5 GM/DL (3.2-4.5); ALKALINE PHOSPHATASE 118 U/L (40-136); BILIRUBIN,TOTAL 0.4 MG/DL (0.1-1.0); BUN/CREATININE RATIO 9; CALCIUM 9.7 MG/DL (8.5-10.1); CARBON DIOXIDE 27 MMOL/L (21-32); CHLORIDE 96 MMOL/L (98-107); CREATININE SERUM 1.09 MG/DL (0.60-1.30); GFR ESTIMATED 88; GLUCOSE 142 MG/DL (70-105); POTASSIUM 4.1 MMOL/L (3.6-5.0); SODIUM 134 MMOL/L (135-145)
[2022-07-04 16:39] LABS: LIPASE 66 U/L (8-78)
--- NOTE | 2022-07-04 16:41 | Diagnostic Imaging Report ---
INDICATION: Pain. FINDINGS: Supine and upright abdominal radiographs show no air-fluid level or free gas. There is a calculus projecting over the lower pole of the right kidney as well as clips at the level of the gallbladder fossa. IMPRESSION: Right nephrolithiasis with nonobstructive and unremarkable bowel gas pattern as well as previous cholecystectomy. Dictated by: Dictated on workstation # [id number]
[2022-07-04] MEDS ORDERED: FAMOTIDINE 20MG/2ML IV (PEPCID) IV STA (16:57)
[2022-07-04] MEDS ORDERED: HYOSCYAMINE 0.125 MG (LEVSIN) TAB SL ONE (17:00)
[2022-07-04] MEDS ORDERED: HOLD METFORMIN - RECEIVED CONTRAST 20 ML VIAL IV SCH (17:15)
[2022-07-04] MEDS ORDERED: IOHEXOL 350 MG/ML 100 ML (OMNIPAQUE 350) VIAL IV ONE (17:15)
[2022-07-04] MEDS ORDERED: NS 100 ML (IVPB) BAG IV ONE (17:15)
--- NOTE | 2022-07-04 17:37 | Diagnostic Imaging Report ---
EXAMINATION: CT abdomen and pelvis with intravenous contrast. TECHNIQUE: Multiple contiguous axial images were obtained through the abdomen and pelvis after the uneventful administration of intravenous contrast. All CT scans use one or more of the following dose optimizing techniques: automated exposure control, MA and/or KvP adjustment based on patient size and exam type or iterative reconstruction. HISTORY: Abdominal pain. Elevated white blood cell count. COMPARISON: 04/20/2022. 12/16/2021. FINDINGS: The heart is unremarkable. The included lung bases are clear. There has been interval increase in size in a presumed pseudocyst within the head of the pancreas measuring 3.9 x 4.5 cm on today's exam, previously measuring 3.3 x 3.1 cm. There are mild inflammatory changes surrounding the head of the pancreas. Wall thickening and hyperemia of the distal stomach and proximal duodenum are visualized. The pancreatic duct is not dilated. Stable benign-appearing cysts in the left kidney. No solid renal mass or hydronephrosis. No renal calculi. The urinary bladder is mildly distended. There is bladder wall thickening. Scattered benign cysts are seen in the liver. There is a linear area of decreased enhancement within the dome of the liver on the right. No suspicious enhancing hepatic lesions. The portal vein is patent. The gallbladder is surgically absent. The spleen and adrenal glands have a normal appearance. There is no pathologically enlarged mesenteric or retroperitoneal adenopathy. The bowel loops are nondilated. The appendix is visualized in the right lower quadrant and has a normal appearance. There is no free fluid or free air. No acute osseous abnormalities. There is no free air, loculated collection, or adenopathy in the pelvis. IMPRESSION: 1. Findings concerning for acute pancreatitis involving the head of the pancreas with interval increase in size in a presumed pseudocyst in the head of the pancreas and mild peripancreatic inflammatory changes surrounding the head of the pancreas. There is wall thickening and hyperemia of the distal stomach and proximal duodenum, which may be reactive or represent gastritis/duodenitis. Recommend correlation with patient history and laboratory values and follow-up, as indicated. 2. Wall thickening of a mildly distended urinary bladder, which may represent cystitis. Recommend correlation with UA. 3. Linear area of decreased enhancement within the dome of the liver on the right, stable since 12/16/2021. This likely represents an area of transient hepatic attenuation difference. No evidence of underlying mass. Dictated by: Dictated on workstation # [id number]
[2022-07-04] MEDS ORDERED: HYOS0.1283 SL (17:49)
[2022-07-04 17:50] VITALS: BP 141/82
== END 2022-07-04 17:50 | disposition home or self-care (01) ==
LOC: EDUNIT# 15:57 → ER FS 15:59
DX: K85.90 Acute pancreatitis without necrosis or infection, unspecified (principal); K86.1 Other chronic pancreatitis; K86.3 Pseudocyst of pancreas; Z90.49 Acquired absence of other specified parts of digestive tract; Z28.310 Unvaccinated for COVID-19
CPT/HCPCS: 36415; 74019; 74177; 80053; 81000; 83690; 83735; 85007; 85027; Q9967

== ENCOUNTER → 2022-08-01 | Outpatient (CLI) | payer OTHER ==
[~2022-08-01] MED LIST changes: +HYOS0.1283 SL
--- NOTE | 2022-08-01 10:48 | Diagnostic Imaging Report ---
INDICATION: Chest pain. Comparison is made with prior exam of 09/21/2021. PA and lateral views were obtained. FINDINGS: The heart size, mediastinal configuration, and pulmonary vascularity are within normal limits. There is no pleural effusion, pneumothorax, or pneumonia. The osseous structures are unremarkable. IMPRESSION: No acute cardiopulmonary abnormality. Dictated by: Dictated on workstation # [id number]
== END ==
LOC: RAD 10:21
PROVIDERS: ATTEND Family Medicine
DX: R07.9 Chest pain, unspecified (principal)
CPT/HCPCS: 71046

== ENCOUNTER 2022-12-08 11:16 | Emergency (ER) | payer OTHER ==
[~2022-12-08] VITALS: Ht 168 cm; Wt 54.0 kg
[2022-12-08] MEDS ORDERED: NS IV 1000 ML 1,000 ML IV SCH (11:30)
[2022-12-08] MEDS ORDERED: HYDROmorphone INJECTION 2 MG/ML VIAL IV ONE ×2 (11:30→12:30)
[2022-12-08] MEDS ORDERED: ONDANSETRON INJECTION 4 MG/2 ML (SDV) IVP ONE (11:30)
[2022-12-08 11:32] LABS: BASOPHILS # (AUTO) 0.1 10^3/uL (0.0-0.1); BASOPHILS % (AUTO) 1 % (0-10); EOSINOPHILS # (AUTO) 0.2 10^3/uL (0.0-0.3); EOSINOPHILS % (AUTO) 1 % (0-10); HEMATOCRIT 40 % (40-54); HEMOGLOBIN 13.2 g/dL (13.3-17.7); LYMPHOCYTES # (AUTO) 5.1 10^3/uL (1.0-4.0); LYMPHOCYTES % (AUTO) 27 % (12-44); MEAN CORPUSCULAR HEMOGLOBIN 31 pg (25-34); MEAN CORPUSCULAR HGB CONC 33 g/dL (32-36); MEAN CORPUSCULAR VOLUME 92 fL (80-99); MEAN PLATELET VOLUME 9.2 fL (9.0-12.2); MONOCYTES # (AUTO) 0.9 10^3/uL (0.0-1.0); MONOCYTES % (AUTO) 5 % (0-12); NEUTROPHILS # (AUTO) 12.5 10^3/uL (1.8-7.8); NEUTROPHILS % (AUTO) 66 % (42-75); PLATELET COUNT 567 10^3/uL (130-400); WHITE BLOOD COUNT 18.8 10^3/uL (4.3-11.0)
[2022-12-08] MEDS ORDERED: HOLD METFORMIN - RECEIVED CONTRAST 20 ML VIAL IV SCH (11:45)
[2022-12-08] MEDS ORDERED: IOHEXOL 350 MG/ML 100 ML (OMNIPAQUE 350) VIAL IV ONE (11:45)
[2022-12-08] MEDS ORDERED: NS 100 ML (IVPB) BAG IV ONE (11:45)
[2022-12-08 12:13] LABS: BAND NEUTROPHILS 2 %; BASOPHILS % (MANUAL) 0 %; EOSINOPHILS % (MANUAL) 0 %; LYMPHOCYTES % (MANUAL) 26 %; MONOCYTES % (MANUAL) 3 %; NEUTROPHILS % (MANUAL) 62 %
[2022-12-08 12:14] LABS: ATYPICAL LYMPHOCYTES 7 %; RBC MORPH NORMAL
[2022-12-08 12:18] LABS: BILIRUBIN,TOTAL 0.7 MG/DL (0.1-1.0); CALCIUM 10.3 MG/DL (8.5-10.1); CHLORIDE 100 MMOL/L (98-107); POTASSIUM 4.1 MMOL/L (3.6-5.0); SODIUM 139 MMOL/L (135-145)
--- NOTE | 2022-12-08 12:19 | Diagnostic Imaging Report ---
PROCEDURE: CT abdomen and pelvis with contrast. TECHNIQUE: Multiple contiguous axial images were obtained through the abdomen and pelvis after administration of intravenous contrast. Auto Exposure Controls were utilized during the CT exam to meet ALARA standards for radiation dose reduction. All CT scans use one or more of the following dose optimizing techniques: automated exposure control, MA and/or KvP adjustment based on patient size and exam type or iterative reconstruction. INDICATION: Abdominal pain. COMPARISON: Comparison is made with prior exam from 07/04/2022. FINDINGS: The lung bases are clear. Linear area of low attenuation in the dome of the liver appears similar to prior exam. No discrete liver mass is detected. The gallbladder is surgically absent. No biliary ductal dilatation is identified. The large cystic lesion in the region of the head of the pancreas has increased in size, now measuring 4.9 x 4.5 cm compared with 3.9 x 3.5 cm on prior. No significant peripancreatic inflammation is seen. The pancreatic body and tail are unremarkable. However, a new complex low-attenuation mass has developed anterior to the body of the pancreas and medial to the lesser curvature of the stomach. This measures 6.1 cm AP x 8.9 cm transverse. This does exert mass effect on the stomach. Cephalocaudal dimension is 9.1 cm. This does show some internal complexity and high density, consistent with a complex cystic lesion. No gas is identified. There is thick enhancing wall. Spleen is unremarkable. No adrenal mass is detected. Kidneys contain cortical low-attenuation lesions on the left, suggestive of small cysts. Aorta is nonaneurysmal. Bowel loops are normal in caliber. There is no obstruction. There is no ascites. Bladder and prostate are unremarkable. IMPRESSION: 1. Enlarging, presumed pseudocyst involving the pancreatic head since prior CT from 07/04/2022. There is a new large thick-walled complex cystic mass that has developed in the hepatogastric region anterior to the body the pancreas, presumed new pseudocyst. No other significant abnormality is detected. Dictated by: Dictated on workstation # [id number]
[2022-12-08 12:23] LABS: ALKALINE PHOSPHATASE 121 U/L (40-136); BUN/CREATININE RATIO 10; CARBON DIOXIDE 26 MMOL/L (21-32); CREATININE SERUM 1.12 MG/DL (0.60-1.30); GFR ESTIMATED 85; GLUCOSE 124 MG/DL (70-105)
[2022-12-08 12:24] LABS: ALANINE AMINOTRANSFERASE 6 U/L (0-55); ALBUMIN 4.4 GM/DL (3.2-4.5); TOTAL PROTEIN 7.8 GM/DL (6.4-8.2)
[2022-12-08] MEDS ORDERED: CEFEPIME INJECTION 1,000 MG in NS (IVPB) 50 ML 50 ML IV ONE (12:30)
[2022-12-08] MEDS ORDERED: metroNIDAZOLE 500MG/100ML IVPB 100 ML IV ONE (12:30)
[2022-12-08] MEDS ORDERED: KETOROLAC INJ 15 MG/ML VIAL IVP ONE (12:30)
--- NOTE | 2022-12-08 12:41 | ED Abdominal Pain ---
General Chief Complaint: Abdominal/GI Problems Stated Complaint: ABD/BACK PAIN; N/V Nursing Triage Note: Abd pain, nausea, and vomiting, started last night 1900, Has taken oxycodone this morning for the pain. History of Present Illness Date Seen by Provider: Dec 08, 2022 Time Seen by Provider: 11:29 Initial Comments 42-year-old male with PMH of chronic pancreatitis/abdominal blood clot on Eliquis (do not know specific details about this), is here with complaints of an acute exacerbation of pancreatitis presenting as epigastric and left upper quadrant pain which began last night around 7 PM. Patient has associated nausea and vomiting. Patient stopped drinking alcohol 1-1/2 years ago. Patient has had an EGD recently in [facility], and the [place] [facility] [place] Denies fever and chills, diarrhea, constipation, chest pain, palpitations, shortness of breath. Patient has taken oxycodone before coming to the ER. Allergies and Home Medications Allergies Coded Allergies: Penicillins (Verified Allergy, Unknown, Angioedema, 12/17/21) Uncoded Allergies: pcn (Allergy, Unknown, 01/29/21) Patient Home Medication List Home Medication List Reviewed: Yes Hyoscyamine Sulfate (Levsin-Sl) 0.125 Mg Tab.subl, 0.125 MG SL Q4H PRN for SPASMS Prescribed by: ORLANDO CARBALLO on 07/04/221748 Ondansetron (Ondansetron Odt) 8 Mg Tab.rapdis, 8 MG PO Q8H PRN for NAUSEA/VOMITING-1ST LINE, (Reported) Entered as Reported by: YOLANDA JARA on 09/22/21 1514 Oxycodone HCl (Oxycodone HCl) 10 Mg Tablet, 10 MG PO Q6H PRN for PAIN-SEVERE (8- 10), (Reported) Entered as Reported by: YOLANDA JARA on 12/17/21 1336 Pantoprazole Sodium (Pantoprazole Sodium) 40 Mg Tablet.dr, 40 MG PO DAILY, (Reported) Entered as Reported by: YOLANDA JARA on 09/22/21 1514 Warfarin Sodium (Warfarin Sodium) 2 Mg Tablet, 2 MG PO HS, (Reported) Entered as Reported by: YOLANDA JARA on 12/17/21 1336 Review of Systems Review of Systems Constitutional: no symptoms reported EENTM: No Symptoms Reported Respiratory: No Symptoms Reported Cardiovascular: No Symptoms Reported Gastrointestinal: Abdominal Pain, Nausea, Vomiting Genitourinary: No Symptoms Reported Musculoskeletal: no symptoms reported Skin: no symptoms reported Psychiatric/Neurological: No Symptoms Reported Past Tdceagk-Jpvugq-Ehgsez Hx Patient Social History Tobacco Use?: Yes Tobacco type used: Cigarettes Use of E-Cig and/or Vaping dev: No Substance use?: Yes Substance type: Marijuana Alcohol Use?: No Immunizations Up To Date First/Initial COVID19 Vaccinat: Not currently Second COVID19 Vaccination Aris: Not currently Third COVID19 Vaccination Date: Not currently Past Medical History Surgery/Hospitalization HX: FLORI; Chronic Pancreatitis Surgeries: No Gallbladder Physical Exam Vital Signs Vital Signs - First Documented 12/08/22 11:20 Temp 36.6 Pulse 72 Resp 16 B/P (MAP) 160/63 (95) Pulse Ox 100 O2 Delivery Room Air Capillary Refill : Height/Weight/BMI Height: '" Weight: lbs. oz. kg; 19.00 BMI Method: General Appearance: moderate distress, thin HEENT: PERRL/EOMI, normal ENT inspection Neck: full range of motion Respiratory: lungs clear, normal breath sounds Cardiovascular: normal peripheral pulses, regular rate, rhythm Gastrointestinal: normal bowel sounds, tenderness (Tenderness present on the left upper quadrant and epigastric region, and is firm to palpation in those areas) Extremities: normal range of motion Back: normal inspection, no CVA tenderness Neurologic/Psychiatric: alert, oriented x 3 Skin: normal color Focused Exam Lactate Level 12/08/22 11:20: Lactic Acid Level 2.01*H Lactic Acid Level Laboratory Tests Test 12/08/22 11:20 Lactic Acid Level 2.01 MMOL/L (0.50-2.00) *H Progress/Results/Core Measures Results/Orders Lab Results Laboratory Tests Test 12/08/22 11:20 Range/Units White Blood Count 18.8 H 4.3-11.0 10^3/uL Red Blood Count 4.30 4.30-5.52 10^6/uL Hemoglobin 13.2 L 13.3-17.7 g/dL Hematocrit 40 40-54 % Mean Corpuscular Volume 92 80-99 fL Mean Corpuscular Hemoglobin 31 25-34 pg Mean Corpuscular Hemoglobin Concent 33 32-36 g/dL Red Cell Distribution Width 12.7 10.0-14.5 % Platelet Count 567 H 130-400 10^3/uL Mean Platelet Volume 9.2 9.0-12.2 fL Immature Granulocyte % (Auto) 0 % Neutrophils (%) (Auto) 66 42-75 % Lymphocytes (%) (Auto) 27 12-44 % Monocytes (%) (Auto) 5 0-12 % Eosinophils (%) (Auto) 1 0-10 % Basophils (%) (Auto) 1 0-10 % Neutrophils # (Auto) 12.5 H 1.8-7.8 10^3/uL Lymphocytes # (Auto) 5.1 H 1.0-4.0 10^3/uL Monocytes # (Auto) 0.9 0.0-1.0 10^3/uL Eosinophils # (Auto) 0.2 0.0-0.3 10^3/uL Basophils # (Auto) 0.1 0.0-0.1 10^3/uL Immature Granulocyte # (Auto) 0.1 0.0-0.1 10^3/uL Neutrophils % (Manual) 62 % Lymphocytes % (Manual) 26 % Monocytes % (Manual) 3 % Eosinophils % (Manual) 0 % Basophils % (Manual) 0 % Band Neutrophils 2 % Atypical Lymphocytes 7 % Blood Morphology Comment NORMAL Sodium Level 139 135-145 MMOL/L Potassium Level 4.1 3.6-5.0 MMOL/L Chloride Level 100 98-107 MMOL/L Carbon Dioxide Level 26 21-32 MMOL/L Anion Gap 13 5-14 MMOL/L Blood Urea Nitrogen 11 7-18 MG/DL Creatinine 1.12 0.60-1.30 MG/DL Estimat Glomerular Filtration Rate 85 BUN/Creatinine Ratio 10 Glucose Level 124 H 70-105 MG/DL Lactic Acid Level 2.01 *H 0.50-2.00 MMOL/L Calcium Level 10.3 H 8.5-10.1 MG/DL Corrected Calcium 10.0 8.5-10.1 MG/DL Magnesium Level 2.0 1.6-2.4 MG/DL Total Bilirubin 0.7 0.1-1.0 MG/DL Aspartate Amino Transf (AST/SGOT) 11 5-34 U/L Alanine Aminotransferase (ALT/SGPT) 6 0-55 U/L Alkaline Phosphatase 121 40-136 U/L Total Protein 7.8 6.4-8.2 GM/DL Albumin 4.4 3.2-4.5 GM/DL Lipase 149 H 8-78 U/L Serum Alcohol < 10 <10 MG/DL My Orders Orders - DANE MYLES MD Alcohol (12/08/22 11:25) Cbc And Automated Diff (12/08/22 11:25) Comprehensive Metabolic Panel (12/08/22 11:25) Drug Screen Stat (Urine) (12/08/22 11:25) Lactic Acid Analyzer (12/08/22 11:25) Lipase (12/08/22 11:25) Magnesium (12/08/22 11:25) Ua Culture If Indicated (12/08/22 11:25) Ct Abdomen/Pelvis W (12/08/22 11:25) Ed Iv/Invasive Line Start (12/08/22 11:27) Ns Iv 1000 Ml (Ns Iv 1000 Ml) (12/08/22 11:30) Ondansetron Injection (Ondansetron Inj (12/08/22 11:30) Hydromorphone Injection (Hydromorphone (12/08/22 11:30) Manual Differential (12/08/22 11:20) Iohexol Injection (Omnipaque 350 Mg/Ml 1 (12/08/22 11:45) Received Contrast (Hold Metformin- Contr (12/08/22 11:45) Ns (Ivpb) 100 Ml (Sodium Chloride 0.9% 1 (12/08/22 11:45) Ketorolac Injection (Ketorolac Injection (12/08/22 12:30) Hydromorphone Injection (Hydromorphone (12/08/22 12:30) Metronidazole 500mg/100ml Ivpb (Metronid (12/08/22 12:30) Cefepime Injection (Cefepime Injection) (12/08/22 12:30) Medications Given in ED Current Medications Medications Dose Ordered Sig/Rasheed Route Start Time Stop Time Status Last Admin Dose Admin Cefepime HCl 1000 mg/Sodium Chloride 50 ml @ 100 mls/hr ONCE ONCE IV 12/08/22 12:30 12/08/22 12:59 DC 12/08/22 12:34 100 MLS/HR Hydromorphone HCl 0.5 mg ONCE ONCE IV 12/08/22 12:30 12/08/22 12:31 DC 12/08/22 12:25 0.5 MG Hydromorphone HCl 1 mg ONCE ONCE IV 12/08/22 11:30 12/08/22 11:31 DC 12/08/22 11:33 1 MG Iohexol 100 ml ONCE ONCE IV 12/08/22 11:45 12/08/22 11:46 DC 12/08/22 11:48 80 ML Ketorolac Tromethamine 15 mg ONCE ONCE IVP 12/08/22 12:30 12/08/22 12:31 DC 12/08/22 12:25 15 MG Metronidazole 100 ml @ 100 mls/hr ONCE ONCE IV 12/08/22 12:30 12/08/22 13:29 DC 12/08/22 12:38 100 MLS/HR Ondansetron HCl 4 mg ONCE ONCE IVP 12/08/22 11:30 12/08/22 11:31 DC 12/08/22 11:33 4 MG Sodium Chloride 100 ml ONCE ONCE IV 12/08/22 11:45 12/08/22 11:46 DC 12/08/22 11:48 100 ML Vital Signs/I&O 12/08/22 11:20 Temp 36.6 Pulse 72 Resp 16 B/P (MAP) 160/63 (95) Pulse Ox 100 O2 Delivery Room Air Blood Pressure Mean: 95 Progress Progress Note : Progress Note 1. PSEUDOCYST OF PANCREAS/ ACUTE ON CHRONIC PANCREATITIS WITH DEHYDRATION & SEPSIS: - CT ABD: Enlarging, presumed pseudocyst involving the pancreatic head since prior CT from 07/04/2022. There is a new large thick-walled complex cystic mass that has developed in the hepatogastric region anterior to the body the pancreas, presumed new pseudocyst. No other significant abnormality is detected. - CBC: WBC is elevated at 18.8 with a left shift - Lactic acid elevated at 2.01 - CMP: unremarkable - Lipase: 149 - Blood cultures sent - NS IVF bolus/ Zofran 4mg iv - Cefepime iv & Flagyl iv started - Pain control initially with Dilaudid 1mg iv, then later added Toradol 15mg iv and Dilaudid 0.5mg iv - Pt will benefit from admission and GI consult, and would like to be transferred to [facility] since his GI doctor is there. Diagnostic Imaging Diagonstic Imaging: CT Plain Films/CT/US/NM/MRI: abdomen Comments [facility]. [place], [place] NAME: LISETH LOOMIS [facility] REC#: [id number] PT STATUS: REG ER : 1980 PHYSICIAN: DANE MYLES MD ADMIT DATE: 12/08/22/ER FS Draft Date of Exam:12/08/22 CT ABDOMEN/PELVIS W PROCEDURE: CT abdomen and pelvis with contrast. TECHNIQUE: Multiple contiguous axial images were obtained through the abdomen and pelvis after administration of intravenous contrast. Auto Exposure Controls were utilized during the CT exam to meet ALARA standards for radiation dose reduction. All CT scans use one or more of the following dose optimizing techniques: automated exposure control, MA and/or KvP adjustment based on patient size and exam type or iterative reconstruction. INDICATION: Abdominal pain. COMPARISON: Comparison is made with prior exam from 07/04/2022. FINDINGS: The lung bases are clear. Linear area of low attenuation in the dome of the liver appears similar to prior exam. No discrete liver mass is detected. The gallbladder is surgically absent. No biliary ductal dilatation is identified. The large cystic lesion in the region of the head of the pancreas has increased in size, now measuring 4.9 x 4.5 cm compared with 3.9 x 3.5 cm on prior. No significant peripancreatic inflammation is seen. The pancreatic body and tail are unremarkable. However, a new complex low-attenuation mass has developed anterior to the body of the pancreas and medial to the lesser curvature of the stomach. This measures 6.1 cm AP x 8.9 cm transverse. This does exert mass effect on the stomach. Cephalocaudal dimension is 9.1 cm. This does show some internal complexity and high density, consistent with a complex cystic lesion. No gas is identified. There is thick enhancing wall. Spleen is unremarkable. No adrenal mass is detected. Kidneys contain cortical low-attenuation lesions on the left, suggestive of small cysts. Aorta is nonaneurysmal. Bowel loops are normal in caliber. There is no obstruction. There is no ascites. Bladder and prostate are unremarkable. IMPRESSION: 1. Enlarging, presumed pseudocyst involving the pancreatic head since prior CT from 07/04/2022. There is a new large thick-walled complex cystic mass that has developed in the hepatogastric region anterior to the body the pancreas, presumed new pseudocyst. No other significant abnormality is detected. Dictated on workstation # [id number] Dict: 12/08/22 1208 Trans: 12/08/22 1219 [id number] Interpreted by: YENY SAUCEDO MD Electronically signed by: Departure Impression Primary Impression: Acute on chronic pancreatitis Additional Impressions: Dehydration Sepsis Pancreatic pseudocyst Disposition: XF [facility] Condition: Stable Admissions Decision to Admit Reason: Admit from ER (General) Transfer Transfer Reason: Exceeds level of care Time Spoke to Accepting Phy: 12:45 Transfer Progress Notes Discussed with Dr. Gabe lozano, and accepted for transfer Transfer Facility: [facility] Method of Transfer: EMS Departure-Patient Inst. Referrals: PADMINI CORONADO APRN (PCP/Family) Primary Care Physician DANE MYLES MD Dec 08, 2022 12:41
[2022-12-08 12:55] LABS: LIPASE 149 U/L (8-78)
[2022-12-08 13:29] VITALS: BP 158/76
[2022-12-08 14:18] LABS: BILIRUBIN,URINE NEGATIVE (NEGATIVE); CLARITY,URINE CLEAR; COLOR,URINE YELLOW; GLUCOSE, URINE (UA) NEGATIVE (NEGATIVE); KETONES,URINE NEGATIVE (NEGATIVE); LEUKOCYTE ESTERASE ,URINE NEGATIVE (NEGATIVE); NITRITE,URINE NEGATIVE (NEGATIVE); PH,URINE 7.5 (5-9); PROTEIN,URINE NEGATIVE (NEGATIVE)
[2022-12-08 14:27] LABS: BACTERIA,URINE NEGATIVE /HPF; RBC,URINE RARE /HPF; WBC,URINE RARE /HPF
[2022-12-08 14:30] LABS: AMPHETAMINE SCREEN, URINE NEGATIVE (NEGATIVE); BARBITURATE SCREEN URINE NEGATIVE (NEGATIVE); CANNABINOID SCREEN, URINE POSITIVE (NEGATIVE); COCAINE SCREEN URINE NEGATIVE (NEGATIVE); METHADONE STAT NEGATIVE (NEGATIVE); OPIATE SCREEN URINE POSITIVE (NEGATIVE); TRICYCLIC ANTIDEPRESSANTS SCRE NEGATIVE (NEGATIVE)
[2022-12-08 14:31] LABS: OXYCODONE STAT POSITIVE (NEGATIVE); PROPOXYPHENE STAT NEGATIVE (NEGATIVE)
[2022-12-08] MEDS ORDERED: HYDROmorphone INJECTION 2 MG/ML VIAL IVP ONE (15:00)
== END 2022-12-08 15:00 | disposition short-term general hospital (02) ==
LOC: EDUNIT# 11:16 → ER FS 11:17
DX: A41.9 Sepsis, unspecified organism (principal); K85.90 Acute pancreatitis without necrosis or infection, unspecified; K86.3 Pseudocyst of pancreas; E86.0 Dehydration; R74.02 Elevation of levels of lactic acid dehydrogenase [LDH]; F17.210 Nicotine dependence, cigarettes, uncomplicated; Z79.01 Long term (current) use of anticoagulants; Z88.0 Allergy status to penicillin
CPT/HCPCS: 36415; 74177; 80053; 80306; 81000; 83605; 83690; 83735; 85007; 85027; 99284; G0480; 80320; Q9967

== ENCOUNTER 2023-01-23 11:53 | Emergency (ER) | payer OTHER ==
[~2023-01-23] VITALS: Ht 172 cm; Wt 52.0 kg
--- NOTE | 2023-01-23 12:21 | ED Abdominal Pain ---
General Stated Complaint: ABD/BACK PAIN Source of Information: Patient Exam Limitations: No Limitations History of Present Illness Date Seen by Provider: Jan 23, 2023 Time Seen by Provider: 12:08 Initial Comments 42-year-old male presents emergency department today for epigastric pain which she believes is related to his chronic pancreatitis. Symptoms started at 9:00 this morning however he does have chronic pancreatitis from severe alcoholism for several years. He quit drinking 2 years ago and denies relapse. He has nausea without any vomiting. He takes Lyrica for his pain and has taken it t marlena without any relief. No changes in bowel or bladder habits. He has started seeing a new GI doctor at [facility] All other systems reviewed and negative except documented per HPI. Voice recognition software was used to help create this chart Allergies and Home Medications Allergies Coded Allergies: Penicillins (Verified Allergy, Unknown, Angioedema, 12/17/21) Uncoded Allergies: pcn (Allergy, Unknown, 01/29/21) Patient Home Medication List Home Medication List Reviewed: Yes Hyoscyamine Sulfate (Levsin-Sl) 0.125 Mg Tab.subl, 0.125 MG SL Q4H PRN for SPASMS Prescribed by: ORLANDO CARBALLO on 07/04/22 1749 Ketorolac Tromethamine (Ketorolac Tromethamine) 10 Mg Tablet, 10 MG PO TID Prescribed by: JYOTI DEL TORO MD on 01/23/23 1313 Ondansetron (Ondansetron Odt) 8 Mg Tab.rapdis, 8 MG PO Q8H PRN for NAUSEA/ VOMITING-1ST LINE, (Reported) Entered as Reported by: YOLANDA JARA on 09/22/21 1514 Oxycodone HCl (Oxycodone HCl) 10 Mg Tablet, 10 MG PO Q6H PRN for PAIN-SEVERE (8- 10), (Reported) Entered as Reported by: YOLANDA JARA on 12/17/21 1336 Pantoprazole Sodium (Pantoprazole Sodium) 40 Mg Tablet.dr, 40 MG PO DAILY, (Reported) Entered as Reported by: YOLANDA JARA on 09/22/21 1514 Tramadol HCl (Tramadol HCl) 50 Mg Tablet, 50 MG PO QID Prescribed by: JYOTI DEL TORO MD on 01/23/23 1314 Warfarin Sodium (Warfarin Sodium) 2 Mg Tablet, 2 MG PO HS, (Reported) Entered as Reported by: YOLANDA JARA on 12/17/21 1719 Review of Systems Review of Systems Constitutional: see HPI Past Rfuqseb-Pxoyur-Gtoklz Hx Patient Social History Tobacco Use?: Yes Use of E-Cig and/or Vaping dev: No Substance use?: No Alcohol Use?: No Immunizations Up To Date First/Initial COVID19 Vaccinat: Not currently Second COVID19 Vaccination Aris: Not currently Third COVID19 Vaccination Date: Not currently Past Medical History Surgery/Hospitalization HX: FLORI; Chronic Pancreatitis Surgeries: No Gallbladder Physical Exam Vital Signs Vital Signs - First Documented 01/23/23 12:34 Temp 37.0 Pulse 88 Resp 20 B/P (MAP) 146/76 (99) Pulse Ox 97 Capillary Refill : Height/Weight/BMI Height: '" Weight: lbs. oz. kg; 19.00 BMI Method: General Appearance: moderate distress HEENT: normal ENT inspection, pharynx normal Neck: non-tender, supple Respiratory: chest non-tender, lungs clear, normal breath sounds, no respiratory distress, no accessory muscle use Cardiovascular: regular rate, rhythm, no murmur Gastrointestinal: normal bowel sounds, soft, no organomegaly, tenderness (Tenderness palpation the epigastric region with voluntary guarding. No rebound tenderness. No mass organomegaly. No skin changes.) Extremities: normal range of motion, non-tender, normal inspection Neurologic/Psychiatric: alert, normal mood/affect, oriented x 3 Skin: normal color, warm/dry Progress/Results/Core Measures Results/Orders Lab Results Laboratory Tests Test 01/23/23 12:20 Range/Units White Blood Count 17.0 H 4.3-11.0 10^3/uL Red Blood Count 5.10 4.30-5.52 10^6/uL Hemoglobin 15.3 13.3-17.7 g/dL Hematocrit 46 40-54 % Mean Corpuscular Volume 91 80-99 fL Mean Corpuscular Hemoglobin 30 25-34 pg Mean Corpuscular Hemoglobin Concent 33 32-36 g/dL Red Cell Distribution Width 12.8 10.0-14.5 % Platelet Count 404 H 130-400 10^3/uL Mean Platelet Volume 9.6 9.0-12.2 fL Immature Granulocyte % (Auto) 0 % Neutrophils (%) (Auto) 69 42-75 % Lymphocytes (%) (Auto) 23 12-44 % Monocytes (%) (Auto) 5 0-12 % Eosinophils (%) (Auto) 2 0-10 % Basophils (%) (Auto) 1 0-10 % Neutrophils # (Auto) 11.7 H 1.8-7.8 10^3/uL Lymphocytes # (Auto) 3.9 1.0-4.0 10^3/uL Monocytes # (Auto) 0.8 0.0-1.0 10^3/uL Eosinophils # (Auto) 0.4 H 0.0-0.3 10^3/uL Basophils # (Auto) 0.1 0.0-0.1 10^3/uL Immature Granulocyte # (Auto) 0.1 0.0-0.1 10^3/uL Neutrophils % (Manual) 71 % Lymphocytes % (Manual) 20 % Monocytes % (Manual) 5 % Eosinophils % (Manual) 3 % Band Neutrophils 1 % Platelet Estimate ADEQUATE Percent Immature Platelet Fraction 2.0 0.0-7.6 % Blood Morphology Comment NORMAL Sodium Level 141 135-145 MMOL/L Potassium Level 4.6 3.6-5.0 MMOL/L Chloride Level 102 98-107 MMOL/L Carbon Dioxide Level 24 21-32 MMOL/L Anion Gap 15 H 5-14 MMOL/L Blood Urea Nitrogen 7 7-18 MG/DL Creatinine 0.94 0.60-1.30 MG/DL Estimat Glomerular Filtration Rate 104 BUN/Creatinine Ratio 7 Glucose Level 144 H 70-105 MG/DL Calcium Level 9.9 8.5-10.1 MG/DL Corrected Calcium 9.7 8.5-10.1 MG/DL Total Bilirubin 0.2 0.1-1.0 MG/DL Aspartate Amino Transf (AST/SGOT) 11 5-34 U/L Alanine Aminotransferase (ALT/SGPT) < 5 0-55 U/L Alkaline Phosphatase 122 40-136 U/L Total Protein 7.7 6.4-8.2 GM/DL Albumin 4.3 3.2-4.5 GM/DL Lipase 61 8-78 U/L My Orders Orders - JYOTI DEL TORO DO Cbc And Automated Diff (01/23/23 11:59) Comprehensive Metabolic Panel (01/23/23 11:59) Lipase (01/23/23 11:59) Ed Iv/Invasive Line Start (01/23/23 12:17) Ns Iv 1000 Ml (Ns Iv 1000 Ml) (01/23/23 12:30) Ketorolac Injection (Ketorolac Injection (01/23/23 12:30) Manual Differential (01/23/23 12:20) Tramadol Tablet (Ultram Tablet) (01/23/23 13:15) Medications Given in ED Current Medications Medications Dose Ordered Sig/Rasheed Route Start Time Stop Time Status Last Admin Dose Admin Ketorolac Tromethamine 15 mg ONCE ONCE IVP 01/23/23 12:30 01/23/23 12:31 DC 01/23/23 12:39 15 MG Vital Signs/I&O 01/23/23 12:34 Temp 37.0 Pulse 88 Resp 20 B/P (MAP) 146/76 (99) Pulse Ox 97 Departure Communication (Admissions) Patient is hemodynamically stable. He does appear to be in significant pain but he has normal vital signs completely. Lipase is normal, LFTs are normal. Remainder of his labs are unremarkable. He has no nausea or vomiting during his stay. He gave him some Toradol and some p.o. tramadol. He had some mild improvement but is still in quite a bit of pain. I advised him that we could treat chronic pancreatitis very effectively the emergency department. He was given 1 L of IV fluids and ultimately discharged in stable condition with recommendation to take clear liquids, p.o. Toradol and tramadol were provided via prescriptions. Impression Primary Impression: Chronic recurrent pancreatitis Disposition: 01 HOME, SELF-CARE Condition: Stable Departure-Patient Inst. Referrals: PADMINI CORONADO APRN (PCP) Primary Care Physician DAVID GERBER MD (Family) Primary Care Physician Patient Instructions: Pancreatitis (DC) Add. Discharge Instructions: As discussed your lipase is normal. Have given you some IV fluids here and recommend you maintain a clear liquid diet at home until your pain resolves. Please use the Toradol, tramadol both as needed for pain. You may take Tylenol in addition to these. Follow-up with your primary doctor for any longer-term pain management needs. Return to the emergency department for any severe concerns. Scripts Tramadol HCl (Tramadol HCl) 50 Mg Tablet 50 MG PO QID for Pain for 3 Days, #12 TAB Prov: JYOTI DEL TORO DO 01/23/23 Ketorolac Tromethamine (Ketorolac Tromethamine) 10 Mg Tablet 10 MG PO TID for Pain for 3 Days, #9 TAB Prov: JYOTI DEL TORO DO 01/23/23 JYOTI DEL TORO DO Jan 23, 2023 12:21
[2023-01-23] MEDS ORDERED: KETOROLAC INJ 15 MG/ML VIAL IVP ONE (12:30)
[2023-01-23] MEDS ORDERED: NS IV 1000 ML 1,000 ML IV SCH (12:30)
[2023-01-23 12:31] LABS: BASOPHILS # (AUTO) 0.1 10^3/uL (0.0-0.1); BASOPHILS % (AUTO) 1 % (0-10); EOSINOPHILS # (AUTO) 0.4 10^3/uL (0.0-0.3); EOSINOPHILS % (AUTO) 2 % (0-10); HEMATOCRIT 46 % (40-54); HEMOGLOBIN 15.3 g/dL (13.3-17.7); LYMPHOCYTES # (AUTO) 3.9 10^3/uL (1.0-4.0); LYMPHOCYTES % (AUTO) 23 % (12-44); MEAN CORPUSCULAR HEMOGLOBIN 30 pg (25-34); MEAN CORPUSCULAR HGB CONC 33 g/dL (32-36); MEAN CORPUSCULAR VOLUME 91 fL (80-99); MEAN PLATELET VOLUME 9.6 fL (9.0-12.2); MONOCYTES # (AUTO) 0.8 10^3/uL (0.0-1.0); MONOCYTES % (AUTO) 5 % (0-12); NEUTROPHILS # (AUTO) 11.7 10^3/uL (1.8-7.8); NEUTROPHILS % (AUTO) 69 % (42-75); PLATELET COUNT 404 10^3/uL (130-400)
[2023-01-23 12:34] VITALS: BP 146/76
[2023-01-23 13:05] LABS: ALANINE AMINOTRANSFERASE < 5 U/L (0-55); ALBUMIN 4.3 GM/DL (3.2-4.5); ALKALINE PHOSPHATASE 122 U/L (40-136); BILIRUBIN,TOTAL 0.2 MG/DL (0.1-1.0); BUN/CREATININE RATIO 7; CALCIUM 9.9 MG/DL (8.5-10.1); CARBON DIOXIDE 24 MMOL/L (21-32); CHLORIDE 102 MMOL/L (98-107); CREATININE SERUM 0.94 MG/DL (0.60-1.30); GFR ESTIMATED 104; GLUCOSE 144 MG/DL (70-105); LIPASE 61 U/L (8-78); POTASSIUM 4.6 MMOL/L (3.6-5.0); SODIUM 141 MMOL/L (135-145); TOTAL PROTEIN 7.7 GM/DL (6.4-8.2)
[2023-01-23] MEDS ORDERED: KETO10TA PO (13:13)
[2023-01-23] MEDS ORDERED: TRAM50TA3 PO (13:13)
[2023-01-23 13:18] LABS: BAND NEUTROPHILS 1 %; EOSINOPHILS % (MANUAL) 3 %; LYMPHOCYTES % (MANUAL) 20 %; MONOCYTES % (MANUAL) 5 %; NEUTROPHILS % (MANUAL) 71 %; PLATELET ESTIMATE ADEQUATE; RBC MORPH NORMAL
== END 2023-01-23 13:24 | disposition home or self-care (01) ==
LOC: EDUNIT# 11:53 → ER FS 11:55
DX: K86.1 Other chronic pancreatitis (principal)
CPT/HCPCS: 36415; 80053; 83690; 85007; 85027